=== PATIENT | female | born 1945 | race Caucasian/White ===

== ENCOUNTER 2016-10-15 10:14 | Inpatient (IN) | payer MEDICARE ==
[~2016-10-15] VITALS: Ht 149.9 cm; Wt 73.0 kg
[~2016-10-15 10:14] MED LIST: ACCUPRIL10 MG PO; AMLODIPINE10 MG PO; ARTHRICREAM 10% EX; CALCI PO; CARAFATE1 GM PO; CEFEPIME IV; CLARITIN-D1 TA2 PO; DUONEB IN; FLUZONE SPLT1 M1 IM; GABAPENTIN300 MG PO; GARAMYCIN0.31 OP; GRALISE300 MG PO; HYDROCHLORO25 MG/TAB; HYDROCHLORO25 MG/TAB PO; HYDROCHLOROT12.5 MG PO; HYDROCO/APAP1 TA1 PO; LEXAPRO10 MG PO; LEXAPRO20 MG PO; LIPITOR10 MG PO; LISINOPRIL10 MG PO; LISINOPRIL20 M1 OR; LISINOPRIL20 MG PO; LOPRESSOR25 MG PO; LORTAB 1010 MG PO; LORTAB 7.5 PO; Levaquin PO; METOPROL TAR25 MG PO; NO HOME MEDS; NORCO1 TA1 PO; NORVASC10 M1 PO; OXY1; OXYBUTYNIN10 MG PO; OXYBUTYNIN5 M1 PO; OXYCO/APAP1 TA5 PO; PERCOCET 10/31 COMBO PO; PERCOCET 5/325M1 TAB PO; POT CHLORIDE10 ME1 PO; POT CHLORIDE10 ME5 PO; PREDNISONE20 MG PO; PREVACID15 M3 PO; PRILOSEC20 MG/CAP PO; PRILOSEC40 MG PO; PROTONIX40 M2 PO; SLOW MAGNESIUM PO; TRAZODONE50 MG PO; TYLOPHEN500 MG PO; VENTOLIN HFA IN; XARELTO10 MG OR; [UNRECOGNIZED DRUG - SUPPLY] MASK
[2016-10-15] MEDS ORDERED: ASPIRIN CHEWABL81 MG PO (11:05)
[2016-10-15 11:10] LABS: HEMATOCRIT 44.4 % (37.0-47.0); HEMOGLOBIN 14.6 g/dl (12.0-16.0); IMMATURE GRANULOCYTES 1.2 % (0.0-1.0); MEAN CELL VOLUME 92.5 fL CALC (80.0-100.0); MEAN CORPUSCULAR HGB 30.4 pG CALC (26.0-32.0); MEAN CORPUSCULAR HGB CONC 32.9 g/L CALC (32.0-36.0); NEUT# 3.97 thou/uL (2.00-7.15); RED BLOOD COUNT 4.8 mill/uL (4.20-5.60); RED CELL DISTRI WIDTH 13.2 % (11.5-15.5)
[2016-10-15] MEDS ORDERED: LORTAB 10-325 M1 TAB PO (11:10)
[2016-10-15 11:32] LABS: ALBUMIN 4.4 g/dL (3.2-5.0); ALKALINE PHOSPHATASE 79 u/l (38-126); ANION GAP 15 (6-22 (CALC)); BILIRUBIN, TOTAL 0.5 mg/dL (0.0-1.4); BUN 15 mg/dL (8-23); BUN/CREATININE RATIO 18 (12-20 (CALC)); CALCIUM 8.9 mg/dL (8.4-10.2); CARBON DIOXIDE 28 mmol/l (22-30); CHLORIDE 100 mmol/l (95-108); CREATININE 0.8 mg/dL (0.5-1.0); GFR > 60 ML/MIN (>=60 (CALC)); GFR FOR AFR.AMER. > 60 ML/MIN (>=60 (CALC)); GLUCOSE 92 mg/dL (82-115); SGOT/AST 17 u/l (9-36); SGPT/ALT 13 u/l (11-66); SODIUM 140 mmol/l (137-146); TOTAL PROTEIN 7.8 g/dL (6.3-8.2)
[2016-10-15 11:52] LABS: MYOGLOBIN 64 ng/mL (0 - 62)
[2016-10-15 12:45] LABS: URINE BILIRUBIN - DIPSTICK NEGATIVE (NEGATIVE); URINE BLOOD DIPSTICK TRACE-INTACT (NEGATIVE); URINE CLARITY CLEAR; URINE COLOR YELLOW; URINE GLUCOSE - DIPSTICK NEGATIVE (NEGATIVE); URINE KETONE NEGATIVE (NEGATIVE); URINE LEUK ESTERASE NEGATIVE (NEGATIVE); URINE NITRITE - DIPSTICK NEGATIVE (Negative); URINE PH 7.5 (4.5-8.0); URINE PROTEIN - DIPSTICK TRACE mg/dL (NEG-TRACE); URINE UROBILINOGEN - DIPSTICK 0.2 E.U./dL (0.2)
[2016-10-15 14:15] VITALS: BP 144/71
[2016-10-15 16:00] VITALS: BP 134/72
[2016-10-15 19:22] VITALS: BP 133/75
[2016-10-15 23:16] VITALS: BP 130/70
[2016-10-16 05:10] VITALS: BP 128/75
[2016-10-16 06:23] LABS: HEMATOCRIT 39.7 % (37.0-47.0); HEMOGLOBIN 13.4 g/dl (12.0-16.0); IMMATURE GRANULOCYTES 0.6 % (0.0-1.0); MEAN CORPUSCULAR HGB 30.4 pG CALC (26.0-32.0); MEAN CORPUSCULAR HGB CONC 33.8 g/L CALC (32.0-36.0); NEUT# 13.34 thou/uL (2.00-7.15); RED BLOOD COUNT 4.41 mill/uL (4.20-5.60); RED CELL DISTRI WIDTH 13.1 % (11.5-15.5)
[2016-10-16 06:37] LABS: ALKALINE PHOSPHATASE 77 u/l (38-126); ANION GAP 15 (6-22 (CALC)); BILIRUBIN, TOTAL 0.3 mg/dL (0.0-1.4); BUN 21 mg/dL (8-23); BUN/CREATININE RATIO 27 (12-20 (CALC)); CALCIUM 9.3 mg/dL (8.4-10.2); CARBON DIOXIDE 27 mmol/l (22-30); CHLORIDE 101 mmol/l (95-108); CREATININE 0.8 mg/dL (0.5-1.0); GFR > 60 ML/MIN (>=60 (CALC)); GFR FOR AFR.AMER. > 60 ML/MIN (>=60 (CALC)); GLUCOSE 113 mg/dL (82-115); POTASSIUM 4.4 mmol/l (3.5-5.1); SGOT/AST 11 u/l (9-36); SGPT/ALT 21 u/l (11-66); SODIUM 138 mmol/l (137-146); TOTAL PROTEIN 6.9 g/dL (6.3-8.2)
[2016-10-16 09:58] VITALS: BP 132/72
[2016-10-16 15:02] VITALS: BP 122/61; BP 122/69
[2016-10-16 20:00] VITALS: BP 128/62
[2016-10-17] VITALS (7 sets, daily range): BP systolic 123–147; BP diastolic 67–80
[2016-10-18 04:30] VITALS: BP 157/83
[2016-10-18 05:13] LABS: HEMATOCRIT 38.9 % (37.0-47.0); IMMATURE GRANULOCYTES 1.3 % (0.0-1.0); MEAN CELL VOLUME 90.9 fL CALC (80.0-100.0); MEAN CORPUSCULAR HGB 30.4 pG CALC (26.0-32.0); MEAN CORPUSCULAR HGB CONC 33.4 g/L CALC (32.0-36.0); NEUT# 11.86 thou/uL (2.00-7.15); RED BLOOD COUNT 4.28 mill/uL (4.20-5.60); RED CELL DISTRI WIDTH 13.3 % (11.5-15.5)
[2016-10-18 05:18] LABS: ANION GAP 13 (6-22 (CALC)); BUN 21 mg/dL (8-23); BUN/CREATININE RATIO 29 (12-20 (CALC)); CARBON DIOXIDE 27 mmol/l (22-30); CHLORIDE 102 mmol/l (95-108); CREATININE 0.7 mg/dL (0.5-1.0); GFR > 60 ML/MIN (>=60 (CALC)); GFR FOR AFR.AMER. > 60 ML/MIN (>=60 (CALC)); GLUCOSE 103 mg/dL (82-115); POTASSIUM 4.5 mmol/l (3.5-5.1); SODIUM 138 mmol/l (137-146)
[2016-10-18 08:59] VITALS: BP 139/80
[2016-10-18 13:30] VITALS: BP 136/84
[2016-10-18 16:30] VITALS: BP 139/70
[2016-10-18 19:20] VITALS: BP 137/67
[2016-10-18 23:45] VITALS: BP 130/68
[2016-10-19 04:20] VITALS: BP 144/81
[2016-10-19 05:48] LABS: HEMOGLOBIN 13.7 g/dl (12.0-16.0); IMMATURE GRANULOCYTES 1.3 % (0.0-1.0); MEAN CELL VOLUME 90.5 fL CALC (80.0-100.0); MEAN CORPUSCULAR HGB 30.2 pG CALC (26.0-32.0); MEAN CORPUSCULAR HGB CONC 33.4 g/L CALC (32.0-36.0); NEUT# 7.79 thou/uL (2.00-7.15); RED BLOOD COUNT 4.53 mill/uL (4.20-5.60); RED CELL DISTRI WIDTH 13.2 % (11.5-15.5)
[2016-10-19 05:58] LABS: ANION GAP 13 (6-22 (CALC)); BUN 24 mg/dL (8-23); BUN/CREATININE RATIO 34 (12-20 (CALC)); CALCIUM 9.1 mg/dL (8.4-10.2); CARBON DIOXIDE 28 mmol/l (22-30); CHLORIDE 101 mmol/l (95-108); CREATININE 0.7 mg/dL (0.5-1.0); GFR > 60 ML/MIN (>=60 (CALC)); GFR FOR AFR.AMER. > 60 ML/MIN (>=60 (CALC)); GLUCOSE 98 mg/dL (82-115); POTASSIUM 4.8 mmol/l (3.5-5.1); SODIUM 137 mmol/l (137-146)
[2016-10-19 07:45] VITALS: BP 137/65
[2016-10-19] MEDS ORDERED: Levaquin PO (09:26)
[2016-10-19 10:00] VITALS: BP 137/65
== END 2016-10-19 11:54 | disposition home or self-care (01) | DRG 191 ==
LOC: ENPENDDIS → ED 10:14 → ED-I 11:22 → ED 13:07 → MS2 13:08
PROVIDERS: Emergency Medicine; ADMIT Internal Medicine Geriatric Medicine; ATTEND Internal Medicine Geriatric Medicine
DX: J44.1 Chronic obstructive pulmonary disease with (acute) exacerbation (principal); I25.110 Atherosclerotic heart disease of native coronary artery with unstable angina pectoris; I69.90 Unspecified sequelae of unspecified cerebrovascular disease; I10 Essential (primary) hypertension; I49.9 Cardiac arrhythmia, unspecified; E78.5 Hyperlipidemia, unspecified; F17.210 Nicotine dependence, cigarettes, uncomplicated; K21.9 Gastro-esophageal reflux disease without esophagitis; Z87.11 Personal history of peptic ulcer disease; Z95.5 Presence of coronary angioplasty implant and graft
CPT/HCPCS: Q9967

== ENCOUNTER 2017-02-21 23:47 | Inpatient (IN) | payer MEDICARE, MEDICAID ==
[~2017-02-21] VITALS: Ht 149.9 cm; Wt 73.0 kg
[~2017-02-21 23:47] MED LIST changes: +ASPIRIN CHEWABL81 MG PO; +LORTAB 10-325 M1 TAB PO
--- NOTE | 2017-02-21 23:50 | NUR ---
PT IMMEDIATELY TO RM 12 VIA WHEELCHAIR.
[2017-02-22] VITALS (15 sets, daily range): BP systolic 99–153; BP diastolic 47–83
[2017-02-22 00:36] LABS: HEMATOCRIT 43.1 % (37.0-47.0); HEMOGLOBIN 14.1 g/dl (12.0-16.0); IMMATURE GRANULOCYTES 0.4 % (0.0-1.0); MEAN CELL VOLUME 92.7 fL CALC (80.0-100.0); MEAN CORPUSCULAR HGB 30.3 pG CALC (26.0-32.0); MEAN CORPUSCULAR HGB CONC 32.7 g/L CALC (32.0-36.0); NEUT# 5.21 thou/uL (2.00-7.15); RED BLOOD COUNT 4.65 mill/uL (4.20-5.60)
--- NOTE | 2017-02-22 00:40 | NUR ---
PT RESTING IN BED W/ BIPAP IN PLACE. A&O X 3. SKIN W/D/P. VSS. DENIES PAIN. MEDICATED PER MD ORDER. INFORMED PT OF PLAN OF CARE AND WAIT TIME AND SHE VERBALIZED UNDERSTANDING. CALL LIGHT IN REACH.
[2017-02-22 00:43] LABS: URINE BILIRUBIN - DIPSTICK NEGATIVE (NEGATIVE); URINE BLOOD DIPSTICK MODERATE (NEGATIVE); URINE CLARITY CLEAR; URINE COLOR YELLOW; URINE GLUCOSE - DIPSTICK NEGATIVE (NEGATIVE); URINE KETONE NEGATIVE (NEGATIVE); URINE LEUK ESTERASE NEGATIVE (NEGATIVE); URINE NITRITE - DIPSTICK NEGATIVE (Negative); URINE PROTEIN - DIPSTICK TRACE mg/dL (NEG-TRACE); URINE SPECIFIC GRAVITY 1.025
[2017-02-22 00:52] LABS: ALBUMIN 4.5 g/dL (3.2-5.0); ALKALINE PHOSPHATASE 72 u/l (38-126); ANION GAP 15 (6-22 (CALC)); BILIRUBIN, TOTAL 0.5 mg/dL (0.0-1.4); BUN 15 mg/dL (8-23); BUN/CREATININE RATIO 18 (12-20 (CALC)); CALCIUM 8.8 mg/dL (8.4-10.2); CARBON DIOXIDE 30 mmol/l (22-30); CHLORIDE 100 mmol/l (95-108); CREATININE 0.8 mg/dL (0.5-1.0); GFR > 60 ML/MIN (>=60 (CALC)); GFR FOR AFR.AMER. > 60 ML/MIN (>=60 (CALC)); GLUCOSE 126 mg/dL (82-115); POTASSIUM 3.7 mmol/l (3.5-5.1); SGOT/AST 22 u/l (9-36); SGPT/ALT 23 u/l (11-66); SODIUM 141 mmol/l (137-146); TOTAL PROTEIN 7.6 g/dL (6.3-8.2)
[2017-02-22 00:54] LABS: URINE SQUAMOUS EPITHELIAL CELL FEW EPI/hpf (0-FEW); URINE WBC 0-2 WBC/hpf (0-5)
[2017-02-22 00:55] LABS: URINE BACTERIA RARE hpf; URINE MUCUS MODERATE hpf (NONE-FEW)
[2017-02-22 01:05] LABS: MYOGLOBIN 43 ng/mL (0 - 62)
[2017-02-22 01:12] LABS: ACT PARTIAL THROMBO TIME 26.2 SECONDS (20.0-32.5); INTERNATIONAL NORMALIZED RATIO 0.9 RATIO (0.7-1.3); PROTHROMBIN TIME 9.8 SECONDS (9.0-12.5)
--- NOTE | 2017-02-22 01:17 | NUR ---
PT REMOVED FROM BIPAP PER MD. PLACED ON 2L NC. RESTING IN BED WATCHING TV. RESP EVEN AND UNLABORED. NO DISTRESS NOTED. VSS. CALL LIGHT IN REACH.
[2017-02-22 02:05] LABS: INFLUENZA A NONE DETECTED (NONE DETECT); INFLUENZA B NONE DETECTED (NONE DETECT)
--- NOTE | 2017-02-22 02:11 | NUR ---
Reassessment of patient completed. No distress noted.
--- NOTE | 2017-02-22 02:30 | NUR ---
REPORT CALLED TO Francie SERRANO RN ICU
--- NOTE | 2017-02-22 02:40 | NUR ---
Admission Note Report Given to: Francie SERRANO RN Transported by: Wheelchair X Stretcher Transported with: X Nurse Transporter X Patent IV X O2 X Hogshead Press Operator
--- NOTE | 2017-02-22 02:40 | NUR ---
FROM ER TO ICU BED 2, SCORTED BY MIGUEL ÁNGEL LOGAN RN. VIA STRETCHER, BIAS BINDING FOLDER, 2L OF O2 VIA NC, AND 20G LAC SALINE LOCK, IV SITE FLUSHES WELL AND APPEARS HEALTHY FREE OF REDNESS OR EDEMA. PT ABLE TO AMBULATE FROM STRETCHER TO STANDING SCALE FOR WEIGH CHECK (74.9 KG) WITH ASSISTANCE X2 PEOPLE, UNSTEADY GAIT NOTED. C/O RIGHT LEG CRAMPING AT ARRIVAL, PAIN AT LLE, RATES IT AT 3/10, WHEEZES AND CRACKLES AUSCULTATED ON UPPER LUNG FARR, DIMINISHED BIBASILAR, SKIN IS WARM, DRY, ACYANOTIC, SOME MILD BRUISES NOTED TO BUE, PT IS SB ON MONITOR WITH HR 50, PVC'S, RESP IS MIDLY LABORED, INSTRUCTED ON PURSED LIP BREATHING EXERCISES, BP 153/73, SPO2 93% ON 2LPM VIA NC. TRACE EDEMA NOTED TO BLE, SOLE HOSE IN PLACE WITH NONSKID SOCKS, CALIXTO DRAINING BY GRAVITY, CLEAR PALE YELLOW URINE, EMPTIED 900 ML AT THIS TIME, LEG STRAP IN PLACE SECURING CALIXTO CATH, ABD DISTENDED, SOFT, ACTIVE BS X4QUAD, PT STATES "I MOVE MY BOWELS YESTERDAY." "I USE A CANE OR W/C AT HOME AND 2L OF OXYGEN VIA NASAL CANNULA AT NIGHT." "I LIVE WITH MY DAUGHTER AND BROTHER IN [place]." "I HAD A STROKE ABOUT 5 YEARS AGO AND SINCE THEN I HAVE LEFT SIDE WEAKNESS." EXPLAINED PLAN OF CARE, MED SCHEDULE, AND SAFETY MEASURES, PT VOICES UNDERSTANDING, SPEECH IS MIDLY UNCLEAR AT TIMES AND HESITATES ANSWERING ASSESSMENT QUESTIONS. CALL BUENROSTRO AT REACH, WILL CONTINUE TO MONITOR.
--- NOTE | 2017-02-22 02:45 | NUR ---
PT DENIES BEING DIABETIC.
--- NOTE | 2017-02-22 03:00 | NUR ---
PT IS ALERT AND ORIENTED X3. RESTING IN BED WITH EYES CLOSED. AROUSES TO VERBAL STIMULI. VOICES NO COMPLAINTS AT THIS TIME. RESP ARE EVEN AND UNLABORED. NO DISTRESS NOTED. VSS, AFEBRILE. SB ON MONITOR, OCCA PVC'S, HR 50-52. CALL BUENROSTRO AT REACH. WILL CONTINUE TO MONITOR.
--- NOTE | 2017-02-22 04:33 | NUR ---
CHILD CARE COUNSELOR IN PT ROOM DRAWING BLOOD SAMPLES. PT A/O X3, OFFERS NO COMPLAINTS, RESP ARE SHALLOW, UNLABORED, NO DISTRESS NOTE, SPO2 92% ON 2LPM NC, SB ON MONITOR HR 49-52, DENIES SOB, OR CHEST PAIN, NO N/V NOTED, WILL CONTINUE TO MONITOR. CALL BUENROSTRO AT REACH.
--- NOTE | 2017-02-22 06:33 | NUR ---
PT APPEARS TO BE SLEEPING WITH EYES CLOSED, A/O X3, DENIES PAIN, SOB, OR NEEDS AT THIS TIME, RESP ARE SHALLOW AND UNLABORED, MOUTH BREATHER, EMPTIED 200 ML OF PALE YELLOW URINE FROM CALIXTO CATH, IV SITE IS INTACT, SB ON MONITOR, HR 52 AT THIS TIME WITH OCCA PVC'S, AFEBRILE, BP 118/53, SPO2 92% ON 2LPM NC. ENCOURAGED TO CALL IF NEEDED. WILL CONTINUE TO MONITOR.
[2017-02-22 06:45] LABS: HEMOGLOBIN 14.6 g/dl (12.0-16.0); IMMATURE GRANULOCYTES 0.5 % (0.0-1.0); MEAN CELL VOLUME 92.3 fL CALC (80.0-100.0); MEAN CORPUSCULAR HGB 31.3 pG CALC (26.0-32.0); NEUT# 7.8 thou/uL (2.00-7.15); RED BLOOD COUNT 4.66 mill/uL (4.20-5.60); RED CELL DISTRI WIDTH 12.8 % (11.5-15.5)
[2017-02-22 07:00] LABS: ALBUMIN 4.2 g/dL (3.2-5.0); ALKALINE PHOSPHATASE 74 u/l (38-126); ANION GAP 12 (6-22 (CALC)); BILIRUBIN, TOTAL 0.4 mg/dL (0.0-1.4); BUN 15 mg/dL (8-23); BUN/CREATININE RATIO 19 (12-20 (CALC)); CALCIUM 8.8 mg/dL (8.4-10.2); CARBON DIOXIDE 30 mmol/l (22-30); CHLORIDE 99 mmol/l (95-108); CREATININE 0.8 mg/dL (0.5-1.0); GFR > 60 ML/MIN (>=60 (CALC)); GFR FOR AFR.AMER. > 60 ML/MIN (>=60 (CALC)); GLUCOSE 132 mg/dL (82-115); POTASSIUM 3.6 mmol/l (3.5-5.1); SGOT/AST 11 u/l (9-36); SGPT/ALT 23 u/l (11-66); SODIUM 138 mmol/l (137-146)
--- NOTE | 2017-02-22 07:30 | NUR ---
PT ALERT AND ORIENTED RESTING IN BED, SKIN INTACT WITH SMALL SCATTERED ECCHYMOTIC AREAS AND FEW SMALL SCATTERED SCABS TO ALL EXTREMETIES, AM ASSESSMENT COMPLETED SEE INTERVENTIONS, CALIXTO CATHETER IN TACT DRAINING CLEAR YELLOW URINE WITH CATH STRAP IN PLACE, SOME LEFT SIDED WEAKNESS NOTED FROM OLD CVA, 20G SALINE LOCK INTACT IN LEFT AC, TELE READING SB RATE 50-56, BP CONTROLLED AND PT AFEBRILE, SEE INTERVENTIONS FOR DETAILS, SAFETY MEASURES REINFROCED, CALL BUENROSTRO WITHIN REACH, O2 ON AT 2L VIA NC, NO SOB OR DISTRESS NOTED, WILL CONTINUE TO MONITOR.
--- NOTE | 2017-02-22 07:40 | NUR ---
SET UP ASSIST PROVIDED FOR AM MEAL
--- NOTE | 2017-02-22 08:05 | NUR ---
IN TO SEE PATIENT, PLAN OF CARE DISCUSSED, CALL BUENROSTRO WITHIN REACH, PLAN TO HOLD AM LOPRESSSOR RELATED TO CONTROLLED BP (HAS OTHER ANTIHYPERTENSIVES ORDERED ALSO) AND SB RATE 50-56 THIS AM CONSISITENTLY, WILL MONITOR CLOSELY FOR CHANGES
--- NOTE | 2017-02-22 08:15 | NUR ---
PT REQUESTING ASSISTANCE TO STAND AT BEDSIDE TO RELEIVE "LEG CRAMPS" ASSISTANCE PROVIDED, PT TOLERATED WELL WITH SOME BALANCE ISSUES NOTED RELATED TO LEFT SIDED WEAKNESS, PT STATES SHE USES A CANE AND/OR WALKER AT HOME
--- NOTE | 2017-02-22 08:55 | NUR ---
PT REPOSITIONED FRO COMFORT, TOOK AM PO MEDICATIONS WELL, MEDICATED FRO COMPLAINTS OF FOOT AND LEG PAIN ORDERED, CALL BUENROSTRO WITHIN REACH.
--- NOTE | 2017-02-22 09:47 | NUR ---
PT STOOD AND TRASNFERRED TO WC WITH MIN ASSIST, SOME AUDIBLE WHEEZES NOTED BUT DENIES SHORTNESS OF BREATH OR DISTRESS, TO RADIOLOGY VIA WC.
--- NOTE | 2017-02-22 11:15 | NUR ---
pt back from radiology, assisted to sitting in recliner, am bath provided with assist of patient, linens changed earlier, call salazar within reach
--- NOTE | 2017-02-22 11:39 | NUR ---
set up assist provided for afternoon meal, call martin whitt
--- NOTE | 2017-02-22 12:45 | NUR ---
pt assisted back to bed per her request, comfort measures provided, call salazar within reach, will continue to monitor.
--- NOTE | 2017-02-22 13:39 | NUR ---
pt dozing offers no compalints, no s/s of distress or discomfort noted, call salazar within reach, gerard cath remains intact draining clear yellow urine with cath strap in place, will continue to monitor.
--- NOTE | 2017-02-22 14:53 | NUR ---
PT DOZING, OFFERS NO NEW COMPLAINTS, VS REMAIN STABLE, WILL CONTINUE TO MONITOR.
--- NOTE | 2017-02-22 16:04 | NUR ---
PT ERIK, OFFERS NO NEW COMPLAINTS, CALL BUENROSTRO WITHIN REACH, WILL CONTINUE TO MONITOR
--- NOTE | 2017-02-22 17:25 | NUR ---
in to see patient, plna of care discussed including possible trasnfer to medical floor tomorrow, diet changed per pt request, will continue to monitor.
--- NOTE | 2017-02-22 19:08 | NUR ---
pt awake in bed; no distress noted; assessment completed at this time; pt alert and oriented; complaints of pain in butt and legs; lortab reviewed and given; denies n/v; resp slightly labored; lungs coarse with wheezing/ diminished bases; skin color wnl; o2 per nc at 2L; moist value analysis coordinator cough noted; hr reg; pulses present; trace edema noted to ble; sr/st on monitor; abd soft wiht bs present; no bm noted per press writer; gerard to gravity draining clear yellow urine; cath strap intact; #20 flushed and patent to lac; blood return noted; scattered ecchymotic areas and scabs noted to extremities; repositioning self encouraged; plan of care/pm meds explained; call light within reach; will continue to monitor
--- NOTE | 2017-02-22 19:59 | NUR ---
awake; admits to pain relief; iv intact; sr/pvc on monitor; gerard to gravity; denies needs; call light within reach; will continue to monitor
--- NOTE | 2017-02-22 21:59 | NUR ---
awake; offers no complaints; sr on monitor; gerard to gravity; o2 per nc; deny needs; call light within reach; will continue to monitor
[2017-02-23] VITALS (12 sets, daily range): BP systolic 99–155; BP diastolic 51–78
--- NOTE | 2017-02-23 00:12 | NUR ---
awake; watching tv; no distress noted; resp even and unlabored; iv intact; sr on monitor; gerard to gravity; deny needs; call light within reach; will continue to monitor
--- NOTE | 2017-02-23 02:07 | NUR ---
asleep; easily aroused; offers no complaints; sr/pvc on monitor; gerard to gravity; iv intact; call light within reach
--- NOTE | 2017-02-23 03:00 | NUR ---
viktoriya hosmani removed for comfort per pt request
--- NOTE | 2017-02-23 03:56 | NUR ---
resting in bed with eyes closed; resp even and unlabored; iv intact; sr/pvc on monitor; gerard to gravity; o2 per nc; call light within reach
--- NOTE | 2017-02-23 04:50 | NUR ---
awake; receiving neb tx; no distress noted; will continue to monitor
[2017-02-23 06:02] LABS: ALBUMIN 3.8 g/dL (3.2-5.0); ALKALINE PHOSPHATASE 60 u/l (38-126); ANION GAP 13 (6-22 (CALC)); BILIRUBIN, TOTAL 0.2 mg/dL (0.0-1.4); BUN 22 mg/dL (8-23); BUN/CREATININE RATIO 26 (12-20 (CALC)); CALCIUM 9.2 mg/dL (8.4-10.2); CARBON DIOXIDE 28 mmol/l (22-30); CHLORIDE 100 mmol/l (95-108); CREATININE 0.8 mg/dL (0.5-1.0); GFR > 60 ML/MIN (>=60 (CALC)); GFR FOR AFR.AMER. > 60 ML/MIN (>=60 (CALC)); GLUCOSE 140 mg/dL (82-115); POTASSIUM 3.6 mmol/l (3.5-5.1); SGOT/AST 11 u/l (9-36); SGPT/ALT 19 u/l (11-66); SODIUM 138 mmol/l (137-146); TOTAL PROTEIN 6.4 g/dL (6.3-8.2)
--- NOTE | 2017-02-23 06:13 | NUR ---
awake; offers no complaints; no distress noted; resp even and unlabored; iv flushed and patent; no redness or edema noted at site; sr/pvc on monitor; gerard emptied for 350cc; o2 per nc; bed in lowest position; call light within reach
[2017-02-23 06:23] LABS: HEMATOCRIT 39.5 % (37.0-47.0); HEMOGLOBIN 13.2 g/dl (12.0-16.0); MEAN CELL VOLUME 92.1 fL CALC (80.0-100.0); MEAN CORPUSCULAR HGB 30.8 pG CALC (26.0-32.0); MEAN CORPUSCULAR HGB CONC 33.4 g/L CALC (32.0-36.0); NEUT# 18.73 thou/uL (2.00-7.15); RED BLOOD COUNT 4.29 mill/uL (4.20-5.60)
--- NOTE | 2017-02-23 08:50 | NUR ---
PT IS RELAXING IN BED WITH NO DISTRESS NOTED. IV SITE IS FREE FROM REDNESS OR EDEMA. ASSESSMENT IS COMPLETED: BREATH SOUNDS ARE WHEEZING AND COARSE. HR IS REG,PULSES ARE STRONG X4, ABD IS SOFT WITH ACTIVE BS. O2 @ 2LITERS SAT 90%. CONTINUE TO OBSERVE AND MONITOR.
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
--- NOTE | 2017-02-23 12:00 | NUR ---
PT'S FAMILY IN THE ROOM WITH PT NO DISTRESS NOTED. INFORMED THAT WILL LET PT KNOW WHEN AND WHAT ROOM PT WILL BE IN.
--- NOTE | 2017-02-23 14:00 | NUR ---
PT IS RELAXING IN BED WITH NO DISTRESS NOTED. IV SITE IS FREE FROM REDNESS OR EDEMA.
--- NOTE | 2017-02-23 16:00 | NUR ---
PT IS RELAXING IN BED WITH NO DISTRESS NOTED. IV SITE IS FREE FROM REDNESS OR EDEMA CONTINUE TO OBSERVE AND MONITOR.
--- NOTE | 2017-02-23 18:50 | NUR ---
REPORT RECEIVED FOR HELENA MEIER, INTRODUCED SELF TO PT, DENIES NEEDS AT THIS TIME, A&OX3, NO DISTRESS NOTED, VSS, ON 4LPM OF HUMIDIFIED OXYGEN, WILL FOLLOW UP WITH ASSESSMENT AND PLAN OF CARE. CALL BUENROSTRO AT [facility], WILL CONTINUE TO MONITOR.
--- NOTE | 2017-02-23 19:36 | NUR ---
C/O ACHING PAIN IN LEFT FOOT, MEDICATED WITH LORTAB PER MD ORDERS, PT RATES PAIN AT 8/10.
--- NOTE | 2017-02-23 19:53 | NUR ---
FOUND PT LYING IN BED RESTING WITH EYES CLOSED, AROUSES TO VERBAL STIMULI, ALERT AND ORIENTED X3, STATES "PAIN IN LEFT FOOT IS BETTER." LUNGS ARE COARSE WITH EXPIRATORY WHEEZES ON AUSCULTATION, NURSING UNIT MANAGER COUGH NOTED, AFEBRILE, SR ON MONITOR, HR 69, BP 140/53, 90% ON 4LPM OF HUMIDIFIED OXYGEN VIA NC, NO EDEMA NOTED, SKIN IS WARM, DRY, AND ACYANOTIC, RESP ARE EVEN AND UNLABORED, BRUISES NOTED ON BUE, 20G LAC SALINE LOCKED, FLUSHES WELL, IV SITE IS INTACT, CALIXTO DRAINING BY GRAVITY SMALL AMOUNTS OF CLEAR YELLOW URINE, EMPTIED 100 ML AT THIS TIME, LEG STRAP IN PLACE, PT REFUSES TO WEAR SOLE HOSE AND SOCKS, EXPLAINED PLAN OF CARE AND MED SCHEDULE, VOICES UNDERSTANDING, SAFETY MEASURES ARE IN PLACE, CALL BUENROSTRO AT REACH, WILL CONTINUE TO MONITOR.
--- NOTE | 2017-02-23 22:10 | NUR ---
PT OFFERS NO COMPLAINTS AT THIS TIME, RESP EVEN AND UNLABORED, NO DISTRESS NOTED, VSS, SR ON MONITOR, WILL CONTINUE TO MONITOR. CALL BUENROSTRO AT REACH.
[2017-02-24] VITALS (9 sets, daily range): BP systolic 128–160; BP diastolic 59–77
--- NOTE | 2017-02-24 00:10 | NUR ---
PT APPEARS TO BE SLEEPING WITH EYES CLOSED, RESPONDS TO VERBAL STIMULI, ALERT AND ORIENTED X3, AFEBRILE, VSS, SR ON MONITOR, SPO2 93%, RESP ARE EVEN AND UNLABORED, STATES "I HAVING A HARD TIME FALLING SLEEP." WILL NOTIFY MD. ABOUT PT REQUESTING A SLEEPING PILL, NO DISTRESS NOTED, IV SITE REMAINS INTACT, FREE OR REDNESS OR EDEMA, ENCOURAGED PT TO CALL IF NEEDED, OFFERED PO FLUIDS, WILL CONTINUE TO MONITOR.
--- NOTE | 2017-02-24 04:28 | NUR ---
PT APPEARS TO BE IN NO DISTRESS, RESTING QUIELY IN BED WITH EYES CLOSED, RESP ARE EVEN AND UNLABORED, VSS, SR ON MONITOR, HR 60, AFEBRILE, SAFETY MEASURES ARE IN PLACE, OFFERS NO COMPLAINTS, EMPTIED 1200 ML OF CLEAR YELLOW URINE AT THIS TIME, CALL BUENROSTRO AT REACH, WILL CONTINUE TO MONITOR.
[2017-02-24 06:03] LABS: HEMATOCRIT 40.9 % (37.0-47.0); HEMOGLOBIN 13.6 g/dl (12.0-16.0); IMMATURE GRANULOCYTES 1.6 % (0.0-1.0); MEAN CELL VOLUME 91.7 fL CALC (80.0-100.0); MEAN CORPUSCULAR HGB 30.5 pG CALC (26.0-32.0); MEAN CORPUSCULAR HGB CONC 33.3 g/L CALC (32.0-36.0); NEUT# 14.48 thou/uL (2.00-7.15); RED BLOOD COUNT 4.46 mill/uL (4.20-5.60); RED CELL DISTRI WIDTH 12.9 % (11.5-15.5)
[2017-02-24 06:15] LABS: ALBUMIN 3.8 g/dL (3.2-5.0); ALKALINE PHOSPHATASE 59 u/l (38-126); ANION GAP 14 (6-22 (CALC)); BILIRUBIN, TOTAL 0.3 mg/dL (0.0-1.4); BUN 20 mg/dL (8-23); BUN/CREATININE RATIO 29 (12-20 (CALC)); CALCIUM 9.3 mg/dL (8.4-10.2); CARBON DIOXIDE 28 mmol/l (22-30); CHLORIDE 101 mmol/l (95-108); CREATININE 0.7 mg/dL (0.5-1.0); GFR > 60 ML/MIN (>=60 (CALC)); GFR FOR AFR.AMER. > 60 ML/MIN (>=60 (CALC)); GLUCOSE 106 mg/dL (82-115); POTASSIUM 4.4 mmol/l (3.5-5.1); SGOT/AST 11 u/l (9-36); SGPT/ALT 23 u/l (11-66); SODIUM 138 mmol/l (137-146); TOTAL PROTEIN 6.5 g/dL (6.3-8.2)
--- NOTE | 2017-02-24 06:37 | NUR ---
PT RESTING IN BED WITH EYES CLOSED, VOICES NO COMPLAINTS, RESP ARE EVEN AND UNLABORED, NO DISTRESS NOTED, WILL CONTINUE TO MONITOR. CALL BUENROSTRO IS AT REACH.
--- NOTE | 2017-02-24 07:30 | NUR ---
PT ALERT AND ORIENTED RESTING IN BED, SKIN INTACT WITH SMALL SCATTERED ECCHYMOTIC AREAS AND FEW SMALL SCATTERED SCABS TO ALL EXTREMETIES, AM ASSESSMENT COMPLETED SEE INTERVENTIONS, CALIXTO CATHETER INTACT DRAINING CLEAR YELLOW URINE WITH CATH STRAP IN PLACE, SOME LEFT SIDED WEAKNESS NOTED FROM OLD CVA, 20G SALINE LOCK INTACT IN LEFT AC, TELE READING SR RATE 60'S, BP CONTROLLED AND PT AFEBRILE, SEE INTERVENTIONS FOR DETAILS, SAFETY MEASURES REINFROCED, CALL BUENROSTRO WITHIN REACH, O2 ON AT 4L VIA NC, NO SOB OR DISTRESS NOTED, PT STTAES SHE ALREADY HAS O2 AT HOME, AND EVANGELISTA IS FEELING A LITTLE BETTER TODAY, WILL CONTINUE TO MONITOR.
--- NOTE | 2017-02-24 08:00 | NUR ---
PT SAT UP ON EDGE OF BED FOR AM MEAL, APPETITE GOOD AND OTLERATES DIET WELL, CALL BUENROSTRO WITHIN REACH
--- NOTE | 2017-02-24 08:45 | NUR ---
PHYSICAL THERAPY WORKED WITH PATIENT, TOLERATED WELL, OFFERS NO COMPLAINTS, CALL BUENROSTRO WITHIN REACH
--- NOTE | 2017-02-24 09:36 | NUR ---
DAUGHTER AT BEDSIDE, CALL BUENROSTRO WITHIN REACH, RESTING IN BED
--- NOTE | 2017-02-24 10:01 | NUR ---
REPORT CALLED TO RICH ESTEVES ON MED SURG ROOM 272 ASSIGNED
--- NOTE | 2017-02-24 10:15 | NUR ---
CALIXTO REMOVED INTACT W/O INCIDENT, AT 1000 AM WITH SARAH CARE PROVIDED, PT REQUESTED HER PERSONAL INCONTINENCE BRIEF BE PLACED RELATED TO URGENCY ISSUES, DONE AND PT STOOD AND TRANSFERRED TO [facility] THEN TRANSFERRED TO MED SURG ROOM 272 VACCINATOR AT BEDSIDE TO RECIEVE PATIENT.
--- NOTE | 2017-02-24 10:50 | NUR ---
REPORT RECEIVED FROM SHAWNA IN ICU, PT ARRIVED ON UNIT VIA W/C, ALERT AND ORIENTED X 3, ORIENTED TO ROOM AND CALL BUENROTSRO, SETTLED IN BED, O2 @ 2L IN PLACE, DENIES PAIN/DISCOMFORT AT THIS ITME, CALL BUENROSTRO IN REACH.
--- NOTE | 2017-02-24 11:46 | NUR ---
SET UP FOR MEAL AT THIS TIME, CALL BUENROSTRO IN REACH.
--- NOTE | 2017-02-24 15:49 | NUR ---
RESTING IN BED AT THIS TIME, PAIN TO L. LEG RELIEVED WITH ANALGESIC, ALL NEEDS ADDRESSED, CALL BUENROSTRO IN REACH.
--- NOTE | 2017-02-24 18:07 | NUR ---
PT ARRIVED FROM ICU WITH PULL-UP, ADVISED OF "NO BRIEFS" POLICY TO PROTECT PT'S SKIN INTEGRETY, SHE IS ADAMANT ABOUT WEARING IT AND STATES SHE WANTS TO WEAR IT. ADVISED TO CALL FOR ASSIST TO CHANGE WET BRIEFS TO PREVENT SKIN BREAKDOWN, STATES UNDERSTANDING.
--- NOTE | 2017-02-25 00:01 | NUR ---
PT APPEARS TO BE SLEEPING WITH EYES CLOSED, RESP ARE EVEN AND UNLABORED, ON 4LPM SPO2 VIA NC, HUMIDIFIED, VOICES NO COMPLAINTS, AROUSES TO VERBAL STIMULI, BSC AND CALL BUENROSTRO IS AT REACH, WILL CONTINUE TO MONITOR.
--- NOTE | 2017-02-25 01:28 | NUR ---
FOUND PT RESTING IN BED, WATCHING TV, A/O X3, DENIES PAIN OR SOB, RESP ARE UNLABORED, ON 4LPM, OXYGEN, VIA NC, AFEBRILE, VSS, PM ASSESSMENT COMPLETED AT THIS TIME, SEE INTERVENTIONS, PT VOIDS PER BSC, WEARING A BRIEF FROM HOME, EDUCATED ABOUT SKIN INTERGRITY WHEN ON BRIEFS, PT VOICES UNDERSTANDING AND REFUSES NOT TO WEAR A BRIEF, STATES "I CALL YOU IF I AM WET." NO BM NOTED, LUNGS ARE WHEEZE WITH DIMINISHED BIBASILAR ON AUSCULTATIION, NOT ON TELEMETRY, ENCOURAGED PT CALL IF NEEDED, EXPLAINED PLAN OF CARE AND MED SCHEDULE, VERBALIZES UNDERSTANDING, CALL BUENROSTRO AT REACH WILL CONTINUE TO MONITOR.
[2017-02-25 04:04] VITALS: BP 150/82
--- NOTE | 2017-02-25 05:32 | NUR ---
OFFERS NO COMPLAINTS AT THIS TIME, APPEARS TO BE SLEEPING WITH EYES CLOSED, RESP ARE EVEN AND UNLABORED, AROUSES TO VERBAL STIMULI, ENCOURAGEDT TO CALL IF NEEDED, NO BM NOTED, OFFERED PO FLUIDS, WILL CONTINUE TO MONITOR.
[2017-02-25 06:25] LABS: HEMATOCRIT 42.2 % (37.0-47.0); HEMOGLOBIN 14.2 g/dl (12.0-16.0); IMMATURE GRANULOCYTES 1.2 % (0.0-1.0); MEAN CELL VOLUME 91.9 fL CALC (80.0-100.0); MEAN CORPUSCULAR HGB 30.9 pG CALC (26.0-32.0); MEAN CORPUSCULAR HGB CONC 33.6 g/L CALC (32.0-36.0); NEUT# 10.81 thou/uL (2.00-7.15); RED BLOOD COUNT 4.59 mill/uL (4.20-5.60); RED CELL DISTRI WIDTH 12.9 % (11.5-15.5)
[2017-02-25 06:36] LABS: ANION GAP 15 (6-22 (CALC)); BUN 24 mg/dL (8-23); BUN/CREATININE RATIO 35 (12-20 (CALC)); CALCIUM 9.1 mg/dL (8.4-10.2); CARBON DIOXIDE 26 mmol/l (22-30); CHLORIDE 102 mmol/l (95-108); CREATININE 0.7 mg/dL (0.5-1.0); GFR > 60 ML/MIN (>=60 (CALC)); GFR FOR AFR.AMER. > 60 ML/MIN (>=60 (CALC)); GLUCOSE 107 mg/dL (82-115); POTASSIUM 4.8 mmol/l (3.5-5.1); SODIUM 138 mmol/l (137-146)
[2017-02-25 07:46] VITALS: BP 143/70
--- NOTE | 2017-02-25 07:47 | NUR ---
REPORT RECEIVED FROM DANIELITO NOWAK. PT SLEEPING AT THIS TIME. CALL LIGHT WITHIN REACH.
--- NOTE | 2017-02-25 09:00 | NUR ---
PT PROVIDED WITH IS. INSTRUCTED ON USE AND INDICATION. 1000 ML INCENTIVE VOLUME ACHIEVED, GOAL OF 1500 ML SET.
--- NOTE | 2017-02-25 12:32 | NUR ---
PT UP TO SHOWER WITH STAFF MEMBER.
--- NOTE | 2017-02-25 13:27 | NUR ---
PT AMBULATING WITH PHYSICAL THERAPY AT THIS TIME. TOLERATING ACITIVTY.
--- NOTE | 2017-02-25 13:48 | NUR ---
PATIENT WAS SEEN AND TREATED TODAY. SHE WAS ABLE TO GET UP BY HERSELF FROM THE BED FASTER THAN BASELINE. CONTACT GUARD ASSIST WAS GIVEN DURING TRANSFERS WITH 02 MONITORING VIA PULSE OXIMETER. SHE WAS AT 89% DURING TRANSFER TO CHAIR AND WAS NOT COMPLAINING OF SOB. SHE AMBULATED 10 FEET X 2 WITH GAIT BELT, ROLLING WALKER AND CONTACT GUARD ASSIST. 02 CANNULA WAS AT 3L/MIN. PATIENT SAFELY RECLINED IN BED WITHOUT ADVERSE EVENTS.
[2017-02-25 15:47] VITALS: BP 124/67
[2017-02-25 18:54] VITALS: BP 119/62
--- NOTE | 2017-02-25 19:50 | NUR ---
PT. RESTING IN BED WITH NO DISTRESS NOTED. ASSESSMENT COMPLETED. IV SITE PATENT TO LAC AND SL. PT. HAS LEFT SIDED WEAKNESS R/T HX; CVA. O2 INFUSING PER NC @3LITERS/MIN PER NC. PT. DENIES NEEDS. ENCOURAGED TO CALL FOR ANY NEEDS. CALL LIGHT IS IN REACH. WILL CONTINUE TO MONITOR.
--- NOTE | 2017-02-25 21:47 | NUR ---
PT. RESTING IN BED ON LEFT SIDE WITH NO DISTRESS NOTED. PT. DECLINES WANTING SOLE HOSE TO BE PLACED. DENIES NEEDS. CALL LIGHT IS IN REACH.
--- NOTE | 2017-02-25 23:06 | NUR ---
PT. IS RESTING IN BED WITH EYES CLOSED. NO DISTRESS NOTED. RESP EVEN AND UNLABORED. CALL LIGHT IS IN REACH.
--- NOTE | 2017-02-26 03:00 | NUR ---
PT. RESTING IN BED WITH EYES CLOSED, NO DISTRESS NOTED. RESP EVEN AND UNLABORED. CALL LIGHT IS IN REACH. WILL CONTINUE TO MONITOR.
[2017-02-26 03:16] VITALS: BP 154/75
--- NOTE | 2017-02-26 05:45 | NUR ---
PT. RESTING IN BED WITH EYES OPEN RECEIVING A NEB TX. PT. DENIES NEEDS/PAIN. ENCOURAGED TO CALL FOR ANY NEEDS. CALL LIGHT IS IN REACH.
[2017-02-26 05:49] LABS: HEMATOCRIT 40.9 % (37.0-47.0); HEMOGLOBIN 13.6 g/dl (12.0-16.0); IMMATURE GRANULOCYTES 1.3 % (0.0-1.0); MEAN CELL VOLUME 91.9 fL CALC (80.0-100.0); MEAN CORPUSCULAR HGB 30.6 pG CALC (26.0-32.0); MEAN CORPUSCULAR HGB CONC 33.3 g/L CALC (32.0-36.0); NEUT# 9.9 thou/uL (2.00-7.15); RED BLOOD COUNT 4.45 mill/uL (4.20-5.60); RED CELL DISTRI WIDTH 12.9 % (11.5-15.5)
[2017-02-26 05:59] LABS: ALBUMIN 3.9 g/dL (3.2-5.0); ALKALINE PHOSPHATASE 57 u/l (38-126); ANION GAP 15 (6-22 (CALC)); BILIRUBIN, TOTAL 0.4 mg/dL (0.0-1.4); BUN 30 mg/dL (8-23); BUN/CREATININE RATIO 44 (12-20 (CALC)); CARBON DIOXIDE 25 mmol/l (22-30); CHLORIDE 103 mmol/l (95-108); CREATININE 0.7 mg/dL (0.5-1.0); GFR > 60 ML/MIN (>=60 (CALC)); GFR FOR AFR.AMER. > 60 ML/MIN (>=60 (CALC)); GLUCOSE 111 mg/dL (82-115); POTASSIUM 4.9 mmol/l (3.5-5.1); SGOT/AST 12 u/l (9-36); SGPT/ALT 27 u/l (11-66); SODIUM 138 mmol/l (137-146); TOTAL PROTEIN 6.5 g/dL (6.3-8.2)
[2017-02-26 07:45] VITALS: BP 137/69
--- NOTE | 2017-02-26 07:45 | NUR ---
ASSESSMENT IS COMPLTED: BREATH SOUNDS ARE COARSE AND DIMINISHED. IV SITE IS FREE FROM REDNESS OR EDEMA. TELE MONTIOR IN PLACE. CONTINUE TO OSBERVE AND MONITOR.
[2017-02-26] MEDS ORDERED: VENTOLIN H108 MCG/AC PO (08:57)
[2017-02-26] MEDS ORDERED: Levaquin PO (08:58)
[2017-02-26] MEDS ORDERED: PRILOSEC20 MG/CAP PO (09:02)
[2017-02-26 09:30] VITALS: BP 137/69
--- NOTE | 2017-02-26 10:30 | NUR ---
IV SITE DISCONTINUED CATHETER INTACT.,
--- NOTE | 2017-02-26 10:44 | NUR ---
PT RECEIVED DISCHARGE INSTRUCTIONS AND VERBALIZED UNDERSTANDING. IV SITE IS REMOVED AND CATHETER INTACT. NO DISTRESS NOTED. CONTINUE TO OSBERVE AND MONITOR.
--- NOTE | 2017-02-26 10:45 | NUR ---
Discharge instructions given. Patient verbalizes understanding of same. Discharged in stable condition via Wheelchair to Home with family. All belongings sent with pt.
== END 2017-02-26 10:42 | disposition home or self-care (01) | DRG 192 ==
LOC: ED 23:47 → ED-I 02-22 00:39 → ED 02-22 01:30 → ICU 02-22 01:31 → MS2 02-22 01:31
PROVIDERS: Emergency Medicine; ADMIT Internal Medicine Geriatric Medicine; ATTEND Internal Medicine Geriatric Medicine
PROC: 0T9B70Z Drainage of Bladder with Drainage Device, Via Natural or Artificial Opening (ICD-10-PCS; principal; 2017-02-22)
PROC: 5A09357 Assistance with Respiratory Ventilation, Less than 24 Consecutive Hours, Continuous Positive Airway Pressure (ICD-10-PCS; 2017-02-22)
DX: J44.1 Chronic obstructive pulmonary disease with (acute) exacerbation (principal); I69.30 Unspecified sequelae of cerebral infarction; K27.9 Peptic ulcer, site unspecified, unspecified as acute or chronic, without hemorrhage or perforation; I10 Essential (primary) hypertension; I25.10 Atherosclerotic heart disease of native coronary artery without angina pectoris; R09.02 Hypoxemia; E78.5 Hyperlipidemia, unspecified; K21.9 Gastro-esophageal reflux disease without esophagitis; F17.210 Nicotine dependence, cigarettes, uncomplicated; M19.90 Unspecified osteoarthritis, unspecified site; Z95.5 Presence of coronary angioplasty implant and graft
CPT/HCPCS: A9540; A9567; J1650

== ENCOUNTER 2017-04-06 21:58 | Inpatient (IN) | payer MEDICARE, MEDICAID ==
[~2017-04-06] VITALS: Ht 149.9 cm; Wt 75.3 kg
[~2017-04-06 21:58] MED LIST changes: +VENTOLIN H108 MCG/AC PO
--- NOTE | 2017-04-06 22:20 | NUR ---
PT. TO ROOM 13 VIA EMS WITH C/O WEAKNESS STARTING AT 1400 TODAY. SKIN WARM AND DRY TO TOUCH, COLOR WNL, RESP. EVEN AND UNLABORED. TALHA;ATERAL LUNG FILEDS ARE RHONCHI.
--- NOTE | 2017-04-06 23:03 | NUR ---
PT. BP 182/111 MD AWARE.
--- NOTE | 2017-04-07 00:03 | NUR ---
PT. INCONTINENT OF A MODERATE AMT. LIQUID BROWN STOOL, PER CARE GIVEN.
[2017-04-07 00:32] LABS: HEMATOCRIT 43.3 % (37.0-47.0); HEMOGLOBIN 14.2 g/dl (12.0-16.0); IMMATURE GRANULOCYTES 0.3 % (0.0-1.0); MEAN CELL VOLUME 92.9 fL CALC (80.0-100.0); MEAN CORPUSCULAR HGB 30.5 pG CALC (26.0-32.0); MEAN CORPUSCULAR HGB CONC 32.8 g/L CALC (32.0-36.0); NEUT# 9.09 thou/uL (2.00-7.15); RED BLOOD COUNT 4.66 mill/uL (4.20-5.60); RED CELL DISTRI WIDTH 13.5 % (11.5-15.5)
[2017-04-07 00:38] LABS: ALBUMIN 4.4 g/dL (3.2-5.0); ALKALINE PHOSPHATASE 86 u/l (38-126); ANION GAP 15 (6-22 (CALC)); BILIRUBIN, TOTAL 0.6 mg/dL (0.0-1.4); BUN 16 mg/dL (8-23); BUN/CREATININE RATIO 18 (12-20 (CALC)); CALCIUM 9.1 mg/dL (8.4-10.2); CARBON DIOXIDE 29 mmol/l (22-30); CHLORIDE 105 mmol/l (95-108); CREATININE 0.9 mg/dL (0.5-1.0); GFR > 60 ML/MIN (>=60 (CALC)); GFR FOR AFR.AMER. > 60 ML/MIN (>=60 (CALC)); GLUCOSE 120 mg/dL (82-115); POTASSIUM 3.9 mmol/l (3.5-5.1); SGOT/AST 33 u/l (9-36); SGPT/ALT 26 u/l (11-66); SODIUM 144 mmol/l (137-146); TOTAL PROTEIN 7.8 g/dL (6.3-8.2)
[2017-04-07 00:50] LABS: MYOGLOBIN 61 ng/mL (0 - 62)
--- NOTE | 2017-04-07 01:03 | NUR ---
RESTING ON STRETCHER, ASSESSMENT UNCHGED. NO C/O PAIN OR DISCOMFORT OFFERED.
--- NOTE | 2017-04-07 02:11 | NUR ---
MD IN ROOM TO DISCUSS CLINICAL FINDINGS WITH PT. ALSO MAKE HER AWARE OF ADMISSION, VERBALIZED UNDERSTANDING.
--- NOTE | 2017-04-07 02:14 | NUR ---
PT. PLACED ON BP. VOIDED A SMALL AMT. OF [place] URINE.
[2017-04-07 02:44] LABS: URINE BILIRUBIN - DIPSTICK NEGATIVE (NEGATIVE); URINE BLOOD DIPSTICK TRACE-INTACT (NEGATIVE); URINE CLARITY CLEAR; URINE COLOR YELLOW; URINE GLUCOSE - DIPSTICK NEGATIVE (NEGATIVE); URINE KETONE NEGATIVE (NEGATIVE); URINE LEUK ESTERASE NEGATIVE (NEGATIVE); URINE NITRITE - DIPSTICK NEGATIVE (Negative); URINE PROTEIN - DIPSTICK TRACE mg/dL (NEG-TRACE)
--- NOTE | 2017-04-07 03:14 | NUR ---
Admission Note Report Given to: ROMAINE MALIK Transported by: Wheelchair X Stretcher Transported with: X Nurse Transporter X Patent IV X O2 X Charter Coach Driver
--- NOTE | 2017-04-07 03:14 | NUR ---
report given to zackery mc.
[2017-04-07 03:30] VITALS: BP 139/76
[2017-04-07 03:38] VITALS: BP 139/76
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
--- NOTE | 2017-04-07 04:10 | NUR ---
lab here. blood drawn.
--- NOTE | 2017-04-07 06:45 | NUR ---
REPORT RECIEVED FROM HELENA GAVIN. PT RESTING SUPINE WITH EYES CLOSED. CALL LIGHT WITHIN REACH, SAFETY REVIEWED. WILL CONTINUE TO MONITOR.
--- NOTE | 2017-04-07 08:45 | NUR ---
NOTIFIED OF INABILITY TO PERFORM MRI AT THIS TIME. STATES UNDERSTANDING, WILL CANCEL TEST.
[2017-04-07 09:27] LABS: CHOLESTEROL HDL RATIO 2.3 (<4.4 (CALC))
--- NOTE | 2017-04-07 10:08 | NUR ---
HOME MEDICATIONS SENT DOWN TO PHARMACY, HYDROCODONE COUNTED BY GROUP CONTROLLER AND DANIELITO MATOS. 48 QUANTITY.
--- NOTE | 2017-04-07 10:35 | NUR ---
PT OFF THE FLOOR AT THIS TIME FOR PROCEDURE, STABLE AT TIME OF DEPARTURE.
--- NOTE | 2017-04-07 12:25 | NUR ---
PT GIVEN LORTAB AT THIS TIME FOR PAIN THAT IS IN THE LEFT FOOT. ASSISTED TO LYING POSITION. CALL LIGHT WITHIN REACH. INSTRUCTED PT TO CALL FOR ASSISTANCE. PT VERBALIZES UNDERSTANDING.
[2017-04-07 17:00] VITALS: BP 140/70
--- NOTE | 2017-04-07 18:55 | NUR ---
REPORT FROM DANIELITO GONZÁLES. ASSUMED PT. CARE.
[2017-04-07 19:00] VITALS: BP 127/66
--- NOTE | 2017-04-07 20:05 | NUR ---
PT. FOUND AWAKE, ALERT, ORIENTED X 3. SKIN WARM AND DRY. MARA. AFEBRILE. ANTUNEZ. PT. DENIES COMPLAINTS. RESPS EVEN AND UNLABORED. SKIN WARM AND DRY. C/O 8/10 PAIN TO FOOT. LUNGS WITH SCANT EXP WHEEZES TO UPPERS AND DIMINIEHED TO BASES. PT. REPORTS DIARRHEAL STOOLS. PT. SMELLS OF URINARY INCONTINENCE. ASSISTED TO CLEANSING. ALL LINENS CHANGED AT THIS TIME. ASSISTED TO BEDSIDE COMMODE. APPROX 100 CC OF URINE MIXED WITH SCANT LIQUID GRAINY STOOL.
--- NOTE | 2017-04-07 22:57 | NUR ---
PT. RESTING IN BED WITH EYES CLOSED. DENIES COMPLAINTS OF PAIN OR NEED AT THIS TIME. RESPS EVEN AND UNLABORED. SKIN WARM AND DRY. REMAINS AFEBRILE. STATES WITH IMPROVEMENT IN FOOT PAIN. CALL LIGHT REMAINS WITHIN REACH. WILL CONTINUE TO MONITOR.
[2017-04-07 23:00] VITALS: BP 104/57
[2017-04-08] VITALS (7 sets, daily range): BP systolic 94–125; BP diastolic 49–78
--- NOTE | 2017-04-08 02:01 | NUR ---
PT. RESTING IN BED WITH EYES CLOSED. RESPS EVEN AND UNLABORED. DENIES COMPLAINTS OR NEEDS AT THIS TIME. VSS. REMAINS SINUS ALIDA 52. INTERMITTENT EPISODES OF BP IN THE UPPER 40'S. SPO2 IS 94% ON 2L NC. NO DISTRESS NOTED.
[2017-04-08 05:48] LABS: HEMATOCRIT 38.4 % (37.0-47.0); HEMOGLOBIN 12.6 g/dl (12.0-16.0); IMMATURE GRANULOCYTES 0.7 % (0.0-1.0); MEAN CELL VOLUME 92.8 fL CALC (80.0-100.0); MEAN CORPUSCULAR HGB 30.4 pG CALC (26.0-32.0); MEAN CORPUSCULAR HGB CONC 32.8 g/L CALC (32.0-36.0); NEUT# 2.57 thou/uL (2.00-7.15); RED BLOOD COUNT 4.14 mill/uL (4.20-5.60); RED CELL DISTRI WIDTH 13.5 % (11.5-15.5)
--- NOTE | 2017-04-08 05:50 | NUR ---
PT. REMAINS STABLE AT THIS TIME. RESTING WITH EYES CLOSED. DENIES COMPLAINTS OF PAIN OR NEED. VSS. REMAINS SINUS ALIDA ON THE MONITOR. RESPS REMAINS EVEN AND UNLABORED. SKIN WARM AND DRY. CALL LIGHT REMAINS WITHIN REACH.
[2017-04-08 06:03] LABS: ALBUMIN 3.4 g/dL (3.2-5.0); ALKALINE PHOSPHATASE 69 u/l (38-126); ANION GAP 14 (6-22 (CALC)); BILIRUBIN, TOTAL 0.4 mg/dL (0.0-1.4); BUN 17 mg/dL (8-23); BUN/CREATININE RATIO 24 (12-20 (CALC)); CALCIUM 8.6 mg/dL (8.4-10.2); CARBON DIOXIDE 25 mmol/l (22-30); CHLORIDE 104 mmol/l (95-108); CREATININE 0.7 mg/dL (0.5-1.0); GFR > 60 ML/MIN (>=60 (CALC)); GFR FOR AFR.AMER. > 60 ML/MIN (>=60 (CALC)); GLUCOSE 87 mg/dL (82-115); POTASSIUM 3.9 mmol/l (3.5-5.1); SGOT/AST 11 u/l (9-36); SGPT/ALT 21 u/l (11-66); SODIUM 140 mmol/l (137-146); TOTAL PROTEIN 6.2 g/dL (6.3-8.2)
--- NOTE | 2017-04-08 06:45 | NUR ---
REPORT RECEIVED FROM DANIELITO GOLDBERG. PT RESTING WITH EYES CLOSED. PT DOES NOT APPEAR TO HAVE PAIN, DISCOMFORT OR SOB. CALL LIGHT WITHIN REACH. WILL CONTINUE TO MONITOR.
--- NOTE | 2017-04-08 08:05 | NUR ---
MD IN TO SEE PT AT THIS TIME. METOPROLOL HELD R/T HEART RATE BELOW PARAMETERS, AND PT STILL C/O DIZZINESS. PHYSICAL THERAPY CONSULTED WELL.
--- NOTE | 2017-04-08 08:49 | NUR ---
PT OFF FLOOR AT THIS TIME FOR SHOWER ON MED-SURG UNIT. STABLE AT TIME OF DEPARTURE, OCCOMPANIED BY RODNEY CELIS.
--- NOTE | 2017-04-08 09:30 | NUR ---
PT ARRIVED BACK TO THE FLOOR IN STABLE CONDITION. PT IS AMBULATORY TO CHAIR. PHYSICAL THERAPY IN TO EVALUATE PT AT THIS TIME. PT AMBULATES WITHOUT THE NEED OF OXYGEN. USES WALKER FOR ASSISTIVE DEVICE.
--- NOTE | 2017-04-08 18:45 | NUR ---
RECEIVED REPORT FROM NIVIA ARAIZA RN. INTRODUCED SELF TO PT, ALERT AND ORIENTED X3, NO DISTRESS NOTED, DENIES PAIN, OR SOB, ON 2LPM OXYGEN VIA NC, 22G LAC SALINE LOCKED, FLUSHED WELL, APPEARS HEALTHY, WILL FOLLOW UP WITH ASSESSMENT AND MED SCHEDULE, CALL BUENROSTRO AT REACH.
--- NOTE | 2017-04-08 21:28 | NUR ---
MEDICATED WITH LORTAB FOR BURNING PAIN IN LEFT FOOT, RATES IT AT 8/10, STATES "PAIN IS PROBABLY FROM THE STROKE I HAD IN 2012." WEAKNESS NOTED ON LEFT SIDE, BUT PT ABLE TO BEAR WEIGH, USES WALKER AND W/C AT HOME TO AMBULATE, WALKER AT BEDSIDE, WILL CONTINUE TO REASSESS, MINOR FACIAL GRIMACE NOTED. CALL BUENROSTRO AT REACH.
--- NOTE | 2017-04-08 22:17 | NUR ---
PT STATES PAIN IS BETTER, RATES IT AT 2/10 NOW, RESP ARE EVEN AND UNLABORED, VSS, NO S/S OF DISTRESS NOTED. CALL BUENROSTRO AT REACH.
[2017-04-09] VITALS: BP 108/53
--- NOTE | 2017-04-09 | NUR ---
PT VOICES NO COMPLAINTS AT THIS TIME, NO DISTRESS NOTED, RESP ARE EVEN AND UNLABORED, DENIES PAIN OR SOB, WILL CONTINUE TO MONITOR.
--- NOTE | 2017-04-09 02:13 | NUR ---
ASSISTED PT OOB TO BSC, UNSTEADY GAIT NOTED, AND LEFT SIDE WEAKNESS, VOIDED 100CC OF CLEAR CONCENTRATED YELLOW URINE, STRONG ODOR NOTED, TOLERATED ACTIVITY WELL, ASSISTED BACK TO BED, LYING IN BUCK'S POSITION, RESP ARE EVEN AND UNLABORED, NO DISTRESS NOTED, VSS, REVERBERATORY SKIMMER COUGH NOTED, WILL CONTINUE TO MONITOR. CALL BUENROSTRO AT REACH.
[2017-04-09 04:00] VITALS: BP 110/56
--- NOTE | 2017-04-09 04:37 | NUR ---
PT HR DECREASES TO 52 WHEN SLEEPING AND SPO2 TO 88%, APPEARS TO BE SLEEPING WITH EYES CLOSED, NO DISTRESS NOTED, AROUSES TO VERBAL OR PHYSICAL STIMULI, RESP ARE EVEN AND UNLABORED, DENIES PAIN OR SOB, WILL CONTINUE TO MONITOR, CALL BUENROSTRO AT REACH.
[2017-04-09 06:30] LABS: HEMATOCRIT 36.4 % (37.0-47.0); IMMATURE GRANULOCYTES 0.5 % (0.0-1.0); MEAN CELL VOLUME 92.4 fL CALC (80.0-100.0); MEAN CORPUSCULAR HGB 30.5 pG CALC (26.0-32.0); NEUT# 2.47 thou/uL (2.00-7.15); RED BLOOD COUNT 3.94 mill/uL (4.20-5.60); RED CELL DISTRI WIDTH 13.4 % (11.5-15.5)
[2017-04-09 06:42] LABS: ALBUMIN 3.3 g/dL (3.2-5.0); ALKALINE PHOSPHATASE 62 u/l (38-126); ANION GAP 14 (6-22 (CALC)); BILIRUBIN, TOTAL 0.3 mg/dL (0.0-1.4); BUN 19 mg/dL (8-23); BUN/CREATININE RATIO 23 (12-20 (CALC)); CALCIUM 8.8 mg/dL (8.4-10.2); CARBON DIOXIDE 27 mmol/l (22-30); CHLORIDE 103 mmol/l (95-108); CREATININE 0.8 mg/dL (0.5-1.0); GFR > 60 ML/MIN (>=60 (CALC)); GFR FOR AFR.AMER. > 60 ML/MIN (>=60 (CALC)); GLUCOSE 83 mg/dL (82-115); POTASSIUM 3.6 mmol/l (3.5-5.1); SGOT/AST 10 u/l (9-36); SGPT/ALT 19 u/l (11-66); SODIUM 140 mmol/l (137-146); TOTAL PROTEIN 5.9 g/dL (6.3-8.2)
--- NOTE | 2017-04-09 07:10 | NUR ---
PT SITTING IN RECLINER WATCHING TV, DENIES ANY CHEST PAIN OR PRESSURE, A & O X3, PERRL, HR 50, RESP. 20, BP 133/60, O2 90% ON 2.5L VIA NC, DIMINISHED LUNG SOUNDS IN ALL FARR WITH EXPIRATORY WHEEZES, ACTIVE BOWEL SOUNDS , STRONG RADIAL PULSES, WEAK PEDAL PULSES, ACTIVE BOWEL SOUNDS, 22G LAC IV SALINE LOCKED, AM ASSESSMENT COMPLETE, SEE INTERVENTIONS, SAFETY MEASURES REINFORCED, CALL BUENROSTRO WITHIN REACH
--- NOTE | 2017-04-09 07:30 | NUR ---
SETUP ASSISTANCE PROVIDED WITH GISSELLE LOAIZA
[2017-04-09 08:00] VITALS: BP 135/68
[2017-04-09 08:48] VITALS: BP 135/68
--- NOTE | 2017-04-09 09:00 | NUR ---
DR DEGROOT AT BEDSIDE DISCUSSING PLAN OF CARE
--- NOTE | 2017-04-09 10:09 | NUR ---
Discharge instructions given. Patient verbalizes understanding of same. Discharged in stable condition via Wheelchair to Home with family. All belongings sent with pt.
== END 2017-04-09 10:09 | disposition home or self-care (01) | DRG 309 ==
LOC: ED 21:58 → ED-I 04-07 01:50 → ED 04-07 03:11 → ICU 04-07 03:12
PROVIDERS: Emergency Medicine; ADMIT Internal Medicine Geriatric Medicine; ATTEND Internal Medicine Geriatric Medicine
DX: R00.1 Bradycardia, unspecified (principal); I25.110 Atherosclerotic heart disease of native coronary artery with unstable angina pectoris; I69.959 Hemiplegia and hemiparesis following unspecified cerebrovascular disease affecting unspecified side; J44.9 Chronic obstructive pulmonary disease, unspecified; I10 Essential (primary) hypertension; K21.9 Gastro-esophageal reflux disease without esophagitis; F17.210 Nicotine dependence, cigarettes, uncomplicated; E78.5 Hyperlipidemia, unspecified; G89.29 Other chronic pain; M54.5 Low back pain; Z87.11 Personal history of peptic ulcer disease; Z96.641 Presence of right artificial hip joint; Z95.5 Presence of coronary angioplasty implant and graft

== ENCOUNTER 2017-09-24 20:36 | Inpatient (IN) | payer MEDICARE, MEDICAID ==
[~2017-09-24] VITALS: Ht 149.9 cm; Wt 124.8 kg
[2017-09-24 21:42] LABS: URINE BILIRUBIN - DIPSTICK NEGATIVE (NEGATIVE); URINE BLOOD DIPSTICK NEGATIVE (NEGATIVE); URINE COLOR YELLOW; URINE GLUCOSE - DIPSTICK NEGATIVE (NEGATIVE); URINE KETONE NEGATIVE (NEGATIVE); URINE LEUK ESTERASE NEGATIVE (NEGATIVE); URINE NITRITE - DIPSTICK NEGATIVE (Negative); URINE PROTEIN - DIPSTICK NEGATIVE (NEG-TRACE); URINE SPECIFIC GRAVITY 1.015; URINE UROBILINOGEN - DIPSTICK 0.2 E.U./dL (0.2)
[2017-09-24 21:46] LABS: URINE CLARITY CLEAR
[2017-09-24 21:47] LABS: HEMATOCRIT 40.7 % (37.0-47.0); HEMOGLOBIN 13.2 g/dl (12.0-16.0); IMMATURE GRANULOCYTES 0.5 % (0.0-1.0); MEAN CELL VOLUME 91.3 fL CALC (80.0-100.0); MEAN CORPUSCULAR HGB 29.6 pG CALC (26.0-32.0); MEAN CORPUSCULAR HGB CONC 32.4 g/L CALC (32.0-36.0); NEUT# 8.61 thou/uL (2.00-7.15); RED BLOOD COUNT 4.46 mill/uL (4.20-5.60); RED CELL DISTRI WIDTH 13.7 % (11.5-15.5)
[2017-09-24 21:56] LABS: ALBUMIN 3.7 g/dL (3.2-5.0); ANION GAP 16 (6-22 (CALC)); BILIRUBIN, TOTAL 0.4 mg/dL (0.0-1.4); BUN 10 mg/dL (8-23); BUN/CREATININE RATIO 13 (12-20 (CALC)); CARBON DIOXIDE 28 mmol/l (22-30); CHLORIDE 103 mmol/l (95-108); CREATININE 0.8 mg/dL (0.5-1.0); GFR > 60 ML/MIN (>=60 (CALC)); GFR FOR AFR.AMER. > 60 ML/MIN (>=60 (CALC)); SGOT/AST 15 u/l (9-36); SGPT/ALT 20 u/l (11-66); SODIUM 142 mmol/l (137-146); TOTAL PROTEIN 6.5 g/dL (6.3-8.2)
[2017-09-24 21:58] LABS: ALKALINE PHOSPHATASE 105 u/l (38-126)
[2017-09-24 22:07] LABS: INFLUENZA A NONE DETECTED (NONE DETECT); INFLUENZA B NONE DETECTED (NONE DETECT)
[2017-09-25 00:15] VITALS: BP 126/55
[2017-09-25 05:35] VITALS: BP 121/36
[2017-09-25 06:35] LABS: ALBUMIN 3.7 g/dL (3.2-5.0); ALKALINE PHOSPHATASE 97 u/l (38-126); ANION GAP 14 (6-22 (CALC)); BILIRUBIN, TOTAL 0.5 mg/dL (0.0-1.4); BUN 12 mg/dL (8-23); BUN/CREATININE RATIO 15 (12-20 (CALC)); CALCULATED LDLCHOLESTEROL 39 mg/dL (62-129 (CALC)); CARBON DIOXIDE 27 mmol/l (22-30); CHLORIDE 105 mmol/l (95-108); CHOLESTEROL HDL RATIO 1.9 (<4.4 (CALC)); CREATININE 0.8 mg/dL (0.5-1.0); GFR > 60 ML/MIN (>=60 (CALC)); GFR FOR AFR.AMER. > 60 ML/MIN (>=60 (CALC)); HDL CHOLESTEROL 64 mg/dL (>=40); POTASSIUM 3.9 mmol/l (3.5-5.1); SGOT/AST 13 u/l (9-36); SGPT/ALT 22 u/l (11-66); SODIUM 142 mmol/l (137-146); TOTAL CHOLESTEROL 118 mg/dl (0-199); TOTAL PROTEIN 6.5 g/dL (6.3-8.2); TOTAL TRIGLYCERIDES 75 mg/dl (30-149); VLDL CHOLESTROL 15 mg/dl (0-48 (CALC))
[2017-09-25 06:57] LABS: HEMATOCRIT 38.3 % (37.0-47.0); HEMOGLOBIN 12.6 g/dl (12.0-16.0); IMMATURE GRANULOCYTES 0.3 % (0.0-1.0); MEAN CELL VOLUME 90.8 fL CALC (80.0-100.0); MEAN CORPUSCULAR HGB 29.9 pG CALC (26.0-32.0); MEAN CORPUSCULAR HGB CONC 32.9 g/L CALC (32.0-36.0); NEUT# 6.95 thou/uL (2.00-7.15); RED BLOOD COUNT 4.22 mill/uL (4.20-5.60); RED CELL DISTRI WIDTH 13.7 % (11.5-15.5)
[2017-09-25 07:44] VITALS: BP 158/85
[2017-09-25 13:00] VITALS: BP 116/66
[2017-09-25 15:52] VITALS: BP 154/74
[2017-09-25 19:00] VITALS: BP 130/78
[2017-09-26 00:50] VITALS: BP 129/76
[2017-09-26 04:35] VITALS: BP 115/71
[2017-09-26 05:11] LABS: HEMATOCRIT 35.7 % (37.0-47.0); HEMOGLOBIN 11.6 g/dl (12.0-16.0); IMMATURE GRANULOCYTES 0.4 % (0.0-1.0); MEAN CELL VOLUME 90.8 fL CALC (80.0-100.0); MEAN CORPUSCULAR HGB 29.5 pG CALC (26.0-32.0); MEAN CORPUSCULAR HGB CONC 32.5 g/L CALC (32.0-36.0); NEUT# 6.26 thou/uL (2.00-7.15); RED BLOOD COUNT 3.93 mill/uL (4.20-5.60); RED CELL DISTRI WIDTH 13.6 % (11.5-15.5)
[2017-09-26 05:25] LABS: ANION GAP 14 (6-22 (CALC)); BUN 13 mg/dL (8-23); BUN/CREATININE RATIO 16 (12-20 (CALC)); CARBON DIOXIDE 26 mmol/l (22-30); CHLORIDE 108 mmol/l (95-108); CREATININE 0.8 mg/dL (0.5-1.0); GFR > 60 ML/MIN (>=60 (CALC)); GFR FOR AFR.AMER. > 60 ML/MIN (>=60 (CALC)); SODIUM 144 mmol/l (137-146)
[2017-09-26 11:12] VITALS: BP 121/62
[2017-09-26 15:34] VITALS: BP 136/68
[2017-09-26 19:00] VITALS: BP 138/85
[2017-09-27 00:44] VITALS: BP 122/74
[2017-09-27 04:06] VITALS: BP 117/72
[2017-09-27 06:39] LABS: HEMATOCRIT 37.7 % (37.0-47.0); HEMOGLOBIN 12.4 g/dl (12.0-16.0); IMMATURE GRANULOCYTES 0.4 % (0.0-1.0); MEAN CELL VOLUME 91.3 fL CALC (80.0-100.0); MEAN CORPUSCULAR HGB CONC 32.9 g/L CALC (32.0-36.0); NEUT# 5.54 thou/uL (2.00-7.15); RED BLOOD COUNT 4.13 mill/uL (4.20-5.60); RED CELL DISTRI WIDTH 13.7 % (11.5-15.5)
[2017-09-27 06:57] LABS: ANION GAP 15 (6-22 (CALC)); BUN 13 mg/dL (8-23); BUN/CREATININE RATIO 16 (12-20 (CALC)); CARBON DIOXIDE 27 mmol/l (22-30); CHLORIDE 105 mmol/l (95-108); CREATININE 0.8 mg/dL (0.5-1.0); GFR > 60 ML/MIN (>=60 (CALC)); GFR FOR AFR.AMER. > 60 ML/MIN (>=60 (CALC)); POTASSIUM 4.3 mmol/l (3.5-5.1); SODIUM 142 mmol/l (137-146)
[2017-09-27 09:00] VITALS: BP 108/70
[2017-09-27 15:08] VITALS: BP 121/75
[2017-09-27 19:02] VITALS: BP 120/80
[2017-09-28 04:00] VITALS: BP 105/62
[2017-09-28 05:10] LABS: HEMATOCRIT 36.6 % (37.0-47.0); HEMOGLOBIN 11.9 g/dl (12.0-16.0); IMMATURE GRANULOCYTES 0.4 % (0.0-1.0); MEAN CELL VOLUME 91.3 fL CALC (80.0-100.0); MEAN CORPUSCULAR HGB 29.7 pG CALC (26.0-32.0); MEAN CORPUSCULAR HGB CONC 32.5 g/L CALC (32.0-36.0); NEUT# 4.54 thou/uL (2.00-7.15); RED BLOOD COUNT 4.01 mill/uL (4.20-5.60); RED CELL DISTRI WIDTH 13.9 % (11.5-15.5)
[2017-09-28 05:27] LABS: ALBUMIN 3.3 g/dL (3.2-5.0); ALKALINE PHOSPHATASE 83 u/l (38-126); ANION GAP 15 (6-22 (CALC)); BILIRUBIN, TOTAL 0.3 mg/dL (0.0-1.4); BUN 16 mg/dL (8-23); BUN/CREATININE RATIO 19 (12-20 (CALC)); CARBON DIOXIDE 26 mmol/l (22-30); CHLORIDE 105 mmol/l (95-108); CREATININE 0.9 mg/dL (0.5-1.0); GFR > 60 ML/MIN (>=60 (CALC)); GFR FOR AFR.AMER. > 60 ML/MIN (>=60 (CALC)); POTASSIUM 4.3 mmol/l (3.5-5.1); SGOT/AST 13 u/l (9-36); SGPT/ALT 17 u/l (11-66); SODIUM 141 mmol/l (137-146)
[2017-09-28 07:30] VITALS: BP 125/65
[2017-09-28 16:22] VITALS: BP 120/68
[2017-09-28 19:00] VITALS: BP 121/77
[2017-09-29 05:06] VITALS: BP 101/68
[2017-09-29 05:24] LABS: HEMATOCRIT 36.3 % (37.0-47.0); HEMOGLOBIN 11.6 g/dl (12.0-16.0); IMMATURE GRANULOCYTES 0.5 % (0.0-1.0); MEAN CELL VOLUME 91.9 fL CALC (80.0-100.0); MEAN CORPUSCULAR HGB 29.4 pG CALC (26.0-32.0); NEUT# 4.15 thou/uL (2.00-7.15); RED BLOOD COUNT 3.95 mill/uL (4.20-5.60); RED CELL DISTRI WIDTH 13.8 % (11.5-15.5)
[2017-09-29 05:51] LABS: ALBUMIN 3.3 g/dL (3.2-5.0); ALKALINE PHOSPHATASE 81 u/l (38-126); ANION GAP 16 (6-22 (CALC)); BILIRUBIN, TOTAL 0.2 mg/dL (0.0-1.4); BUN 19 mg/dL (8-23); BUN/CREATININE RATIO 21 (12-20 (CALC)); CARBON DIOXIDE 25 mmol/l (22-30); CHLORIDE 106 mmol/l (95-108); CREATININE 0.9 mg/dL (0.5-1.0); GFR > 60 ML/MIN (>=60 (CALC)); GFR FOR AFR.AMER. > 60 ML/MIN (>=60 (CALC)); POTASSIUM 4.1 mmol/l (3.5-5.1); SGOT/AST 13 u/l (9-36); SGPT/ALT 23 u/l (11-66); SODIUM 143 mmol/l (137-146)
[2017-09-29 07:28] VITALS: BP 125/62
[2017-09-29 15:13] VITALS: BP 109/61
[2017-09-29 18:52] VITALS: BP 139/80
[2017-09-30 04:25] VITALS: BP 114/69
[2017-09-30 07:47] VITALS: BP 154/84
[2017-09-30] MEDS ORDERED: ROCEPHIN 1 GM1 GM IM (10:11)
[2017-09-30] MEDS ORDERED: ZITHROMAX500 M1 IV (10:12)
[2017-09-30] MEDS ORDERED: DUONEB IN (10:13)
[2017-09-30 10:29] VITALS: BP 109/50
[2017-09-30 15:30] VITALS: BP 117/71
== END 2017-09-30 16:41 | DRG 190 ==
LOC: ED 20:36 → ED-I 22:50 → ED 23:40 → MS2 23:41
PROVIDERS: Emergency Medicine; ADMIT Internal Medicine Geriatric Medicine; ATTEND Internal Medicine Geriatric Medicine
DX: J44.0 Chronic obstructive pulmonary disease with (acute) lower respiratory infection (principal); J18.9 Pneumonia, unspecified organism; J91.8 Pleural effusion in other conditions classified elsewhere; I69.951 Hemiplegia and hemiparesis following unspecified cerebrovascular disease affecting right dominant side; R00.1 Bradycardia, unspecified; J44.1 Chronic obstructive pulmonary disease with (acute) exacerbation; I10 Essential (primary) hypertension; I25.10 Atherosclerotic heart disease of native coronary artery without angina pectoris; K21.9 Gastro-esophageal reflux disease without esophagitis; K27.9 Peptic ulcer, site unspecified, unspecified as acute or chronic, without hemorrhage or perforation; E78.5 Hyperlipidemia, unspecified; F41.9 Anxiety disorder, unspecified; M54.5 Low back pain; G89.29 Other chronic pain; F17.210 Nicotine dependence, cigarettes, uncomplicated; Z96.641 Presence of right artificial hip joint
CPT/HCPCS: G0378

== ENCOUNTER 2018-04-05 16:18 | Emergency (ER) | payer MEDICARE ==
[~2018-04-05] VITALS: Ht 149.9 cm; Wt 72.7 kg
[~2018-04-05 16:18] MED LIST changes: +ROCEPHIN 1 GM1 GM IM; +ZITHROMAX500 M1 IV
[2018-04-05] MEDS ORDERED: OMEPRAZOLE20 M1 PO (17:15)
[2018-04-05] MEDS ORDERED: ULTRAM50 M1 PO (20:48)
[2018-04-05 20:50] VITALS: BP 130/72
== END 2018-04-05 21:55 | disposition home or self-care (01) ==
LOC: ED 16:18
DX: S73.102A Unspecified sprain of left hip, initial encounter (principal); J44.9 Chronic obstructive pulmonary disease, unspecified; F41.9 Anxiety disorder, unspecified; M19.90 Unspecified osteoarthritis, unspecified site; E78.5 Hyperlipidemia, unspecified; I10 Essential (primary) hypertension; F32.9 Major depressive disorder, single episode, unspecified; K27.9 Peptic ulcer, site unspecified, unspecified as acute or chronic, without hemorrhage or perforation; F17.210 Nicotine dependence, cigarettes, uncomplicated; K21.9 Gastro-esophageal reflux disease without esophagitis; X50.9XXA Other and unspecified overexertion or strenuous movements or postures, initial encounter; Z95.5 Presence of coronary angioplasty implant and graft; Z99.81 Dependence on supplemental oxygen; Z86.73 Personal history of transient ischemic attack (TIA), and cerebral infarction without residual deficits

== ENCOUNTER 2018-05-05 15:44 | Observation (INO) | payer MEDICARE ==
[~2018-05-05] VITALS: Ht 149.9 cm; Wt 73.1 kg
[~2018-05-05 15:44] MED LIST changes: +OMEPRAZOLE20 M1 PO; +ULTRAM50 M1 PO
[2018-05-05] MEDS ORDERED: HYDROCODONE/ACE1 TAB PO (16:32)
[2018-05-05] MEDS ORDERED: METOPROL TAR25 M1 PO (16:33)
[2018-05-05] MEDS ORDERED: NARCAN4 MG/0.1 M (16:34)
[2018-05-05 17:04] LABS: HEMATOCRIT 38.7 % (37.0-47.0); HEMOGLOBIN 12.6 g/dl (12.0-16.0); IMMATURE GRANULOCYTES 0.4 % (0.0-5.0); MEAN CELL VOLUME 91.7 fL CALC (80.0-100.0); MEAN CORPUSCULAR HGB 29.9 pG CALC (26.0-32.0); MEAN CORPUSCULAR HGB CONC 32.6 g/L CALC (32.0-36.0); NEUT# 4.78 thou/uL (2.00-7.15); RED BLOOD COUNT 4.22 mill/uL (4.20-5.60)
[2018-05-05 17:14] VITALS: BP 122/78
[2018-05-05 17:31] LABS: ALBUMIN 3.5 g/dL (3.2-5.0); ALKALINE PHOSPHATASE 86 u/l (38-126); ANION GAP 11 (6-22 (CALC)); BILIRUBIN, TOTAL 0.2 mg/dL (0.0-1.4); BUN 15 mg/dL (8-23); BUN/CREATININE RATIO 22 (12-20 (CALC)); CARBON DIOXIDE 31 mmol/l (22-30); CHLORIDE 103 mmol/l (95-108); CREATININE 0.7 mg/dL (0.5-1.0); GFR > 60 ML/MIN (>=60 (CALC)); GFR FOR AFR.AMER. > 60 ML/MIN (>=60 (CALC)); POTASSIUM 3.6 mmol/l (3.5-5.1); SGOT/AST 12 u/l (9-36); SODIUM 142 mmol/l (137-146); TOTAL PROTEIN 6.5 g/dL (6.3-8.2)
[2018-05-05 19:28] VITALS: BP 136/71
--- NOTE | 2018-05-05 19:30 | NUR ---
BEDSIDE REPORT RECEIVED FROM DAY NURSE. PT DENIES ANY NEEDS AT THIS TIME. PT IS IN BED W/LIGHTS LOW AND TV ON. CALL LIGHT AT BEDSIDE AND PT ENCOURAGED TO CALL.
--- NOTE | 2018-05-05 20:52 | NUR ---
PT MEDICATED ORDERS PROVIDE AND FOR PAIN IN LEFT FOOT AND LEFT HIP. ASSISTED IN REPOSITIONING FOR COMFORT. PT DENIES ANY OTHER NEEDS AT THIS TIME. CALL LIGHT AT SIDE.
--- NOTE | 2018-05-05 22:00 | NUR ---
PT OFF UNIT FLOOR FOR XRAY ACCOMPANIED BY AIDE.
--- NOTE | 2018-05-05 22:20 | NUR ---
PT ARRIVED BACK TO UNIT IN GOOD CONDITION VIA WC ACCOMPANIED BY AIDE. IV FLUIDS READMINISTERED AND PT ASSISTED IN POSITIONING IN BED. DENIES ANY OTHER NEEDS AND REPORTS THAT SHE IS GOING TO ATTEMPT TO GO TO SLEEP.
[2018-05-05 23:01] LABS: URINE BILIRUBIN - DIPSTICK NEGATIVE (NEGATIVE); URINE BLOOD DIPSTICK NEGATIVE (NEGATIVE); URINE COLOR YELLOW; URINE GLUCOSE - DIPSTICK NEGATIVE (NEGATIVE); URINE KETONE NEGATIVE (NEGATIVE); URINE LEUK ESTERASE NEGATIVE (Negative); URINE NITRITE - DIPSTICK NEGATIVE (Negative); URINE PROTEIN - DIPSTICK NEGATIVE (NEG-TRACE); URINE SPECIFIC GRAVITY 1.015; URINE UROBILINOGEN - DIPSTICK 0.2 E.U./dL (0.2)
[2018-05-05 23:05] LABS: URINE CLARITY CLEAR
--- NOTE | 2018-05-06 03:51 | NUR ---
PT IV FLUIDS REPLENISHED AT THIS TIME. PT WAS SLEEPING SOUNDLY UPON MY ENTERING THE ROOM. NO S/S OF DISTRESS AT THIS TIME. PT DENIES ANY NEEDS, CALL LIGHT AT BEDSIDE. PT RETURNING TO SLEEP.
[2018-05-06 05:19] VITALS: BP 98/60
[2018-05-06 07:50] VITALS: BP 82/50
--- NOTE | 2018-05-06 07:50 | NUR ---
ASSESSMENT IS COMPLTED: IV SITE IS FREE FROM REDNESS OR EDEMA. HR IS REG, PULSES ARE STRONG X4, ABD IS SOFT WITH ACTIVE BS. BREATH SOUNDS ARE CLEAR BILATERALLY. CONTINUE TO OSBERVE AND MONITOR.
[2018-05-06 08:30] VITALS: BP 130/82
[2018-05-06 11:15] VITALS: BP 123/63
--- NOTE | 2018-05-06 11:23 | NUR ---
DAUGHTER CALLED AND INQUIRED ABOUT PT. INFORMED THAT HE WILL KEEP HER A FEW DAYS. DUE TO PNEUMONIA
--- NOTE | 2018-05-06 12:15 | NUR ---
PT HAS BEEN RELAXING IN BED WITH NO DISTRESS NOTED IV SITE IS FREE FROM REDNESS OR EDEMA.
[2018-05-06 15:10] VITALS: BP 135/57
--- NOTE | 2018-05-06 16:00 | NUR ---
PT IS RELAXING IN BED WITH NO DISTRESS NOTED. IV SITE IS FREE FROM REDNESS OR EDEMA.
--- NOTE | 2018-05-06 19:25 | NUR ---
REPORT RECEIVED FROM DAY NURSE. NO S/S OF DISTRESS NOTED UPON ENTERING ROOM, PT REPORTED TO ME THAT SHE HAD WET HER BRIEF. PT UP TO BEDSIDE COMMODE AND CLEANED OF A LARGE AMOUNT OF INCONTINENT URINE/SARAH-CARE PROVIDED AT THIS TIME. BEDDING WAS CHANGED AND PT ASSISTED BACK TO BED. UPON AMBULATION PT EXPERIENCED SOB AND INCREASED WHEEZING. RELEIVED SOON SHE WAS BACK TO BED. O2 WAS ON AT ALL TIMES. POC DISCUSSED W/PT AND PT WAS ENCOURAGED TO CALL SOON SHE FEELS SHE NEEDS TO URINATE OR IMMEDIATELY UPON URINATING IF SHE DOESN'T KNOW PRIOR AND NOT TO WAIT. CALL LIGHT IS IN HAND. V/S ASSESSED AT THIS TIME AND ASSESSMENT COMPLETED. LUNGS SOUNDS ARE WHEEZING THROUGHOUT. WEAKNESS TO LEFT HAND, LEG AND FOOT.
[2018-05-06 20:20] VITALS: BP 132/75
--- NOTE | 2018-05-06 21:05 | NUR ---
PT MEDICATED ORDERS PROVIDE AND FOR ANXIETY. PT REQUESTED EARLY BREATHING TREATMENT FROM RESPIRATORY/CALLED FOR EARLY TREATMENT. WILL CONTINUE TO MONITOR. PT ASSISTED UP TO BSC AND CLEANED OF INCONTINENT URINE.
--- NOTE | 2018-05-06 22:31 | NUR ---
PT ASSISTED UP TO BSC AND BACK TO BED. PT BREIF WAS WET OF INCONTINENT URINE/REPLACED, SARAH CARE PROVIDED AND BACK TO BED/POSITIONED FOR COMFORT.
[2018-05-07 00:25] VITALS: BP 132/84
[2018-05-07 04:40] VITALS: BP 132/84
--- NOTE | 2018-05-07 04:40 | NUR ---
PT V/S ASSESSED AND UP TO BEDSIDE COMMODE. SHE WAS CLEANED OF INCONTINENT URINE AND BEDDING CHANGED. PT ASSISTED BACK TO BED. O2NC @3L ON. PT BECOMES VERY SOB UPON EXERTION TO BSC AND BACK TO THE BED. PT DENIES ANY OTHER NEEDS AT THIS TIME. CALL LIGHT AT SIDE.
[2018-05-07 05:27] LABS: HEMATOCRIT 39.6 % (37.0-47.0); IMMATURE GRANULOCYTES 0.6 % (0.0-5.0); MEAN CELL VOLUME 90.8 fL CALC (80.0-100.0); MEAN CORPUSCULAR HGB 29.8 pG CALC (26.0-32.0); MEAN CORPUSCULAR HGB CONC 32.8 g/L CALC (32.0-36.0); NEUT# 5.83 thou/uL (2.00-7.15); RED BLOOD COUNT 4.36 mill/uL (4.20-5.60)
[2018-05-07 05:43] LABS: ANION GAP 14 (6-22 (CALC)); BUN 8 mg/dL (8-23); BUN/CREATININE RATIO 14 (12-20 (CALC)); CARBON DIOXIDE 26 mmol/l (22-30); CHLORIDE 106 mmol/l (95-108); CREATININE 0.6 mg/dL (0.5-1.0); GFR > 60 ML/MIN (>=60 (CALC)); GFR FOR AFR.AMER. > 60 ML/MIN (>=60 (CALC)); POTASSIUM 3.8 mmol/l (3.5-5.1); SODIUM 142 mmol/l (137-146)
--- NOTE | 2018-05-07 05:50 | NUR ---
PT MEDICATED FOR PAIN REPORTED IN LEFT FOOT AND HIP 8.5/10.
--- NOTE | 2018-05-07 07:00 | NUR ---
SHIFT CHANGE REPORT FROM KAREN HERNANDEZ SLEEPING BUT AWAKENED TO VERBAL STIMULI, O2 @ 3L VIA NC IN PLACE, ORIENTED X 3, CALL BUENROSTRO IN REACH.
[2018-05-07 08:02] VITALS: BP 134/62
[2018-05-07 09:40] VITALS: BP 134/55
--- NOTE | 2018-05-07 09:52 | NUR ---
DR DEGROOT HERE ROUNDING AND GAVE VERBAL ORDERS WHILE PT RESTING IN BED, PT GOT OOB GOT VERY WINDED AND WAS ASSISTED BACK TO BED, CALL BUENROSTRO IN REACH, WILL CONTINUE TO MONITOR.
--- NOTE | 2018-05-07 11:18 | NUR ---
RESTING IN BED AT THIS TIME, SOB ON EXERTION, ALL NEEDS MET/ADDRESSED, CALL BUENROSTRO IN REACH.
--- NOTE | 2018-05-07 16:00 | NUR ---
RESTING IN BED IN LEFT SIDE-LYING POSITION, NO C/O DISCOMFORT, WILL CONTINUE TO MONITOR.
[2018-05-07 17:41] VITALS: BP 141/75
--- NOTE | 2018-05-07 19:22 | NUR ---
REPORT RECEIVED FROM DAY NURSE. PT IS CURLED UP ON SIDE IN BED ASLEEP. NO S/S OF DISTRESS. CALL LIGHT IS AT BEDSIDE. WILL CONTINUE TO MONITOR
[2018-05-07 20:05] VITALS: BP 126/63
--- NOTE | 2018-05-07 22:17 | NUR ---
PT MEDICATED W/PM MEDICATIONS ORDERS PROVIDE AND FOR PAIN REPORTED IN LEFT HIP AND LEFT FOOT 01/31. PT IS TALKATIVE AND ASSISTED UP TO BSC AND CLEANED OF INCONTINENT URINE. BEDDING CHANGED DUE TO INCONTINENCE. PT AGREED TO SIT IN RECLINER FOR A LITTLE WHILE. POC DISCUSSED. WILL CONTINUE TO MONITOR.
--- NOTE | 2018-05-08 02:06 | NUR ---
REPORT RECEIVED FROM DAY NURSE. PT IS IN BED CURLED OVER ON SIDE ASLEEP, LIGHTS AND TV ARE OFF. NO S/S OF DISTRESS NOTED.
--- NOTE | 2018-05-08 02:50 | NUR ---
PT IS SLEEPING AT THIS TIME. NO S/S OF DISTRESS NOTED. CALL LIGHT AT BEDSIDE. WILL CONTINUE TO MONITOR
[2018-05-08 04:35] VITALS: BP 121/56
[2018-05-08 05:57] LABS: HEMATOCRIT 39.5 % (37.0-47.0); HEMOGLOBIN 13.1 g/dl (12.0-16.0); IMMATURE GRANULOCYTES 0.5 % (0.0-5.0); MEAN CORPUSCULAR HGB 30.2 pG CALC (26.0-32.0); MEAN CORPUSCULAR HGB CONC 33.2 g/L CALC (32.0-36.0); NEUT# 5.09 thou/uL (2.00-7.15); RED BLOOD COUNT 4.34 mill/uL (4.20-5.60); RED CELL DISTRI WIDTH 14.2 % (11.5-15.5)
[2018-05-08 06:00] LABS: ALBUMIN 3.3 g/dL (3.2-5.0); ALKALINE PHOSPHATASE 77 u/l (38-126); ANION GAP 13 (6-22 (CALC)); BILIRUBIN, TOTAL 0.3 mg/dL (0.0-1.4); BUN 10 mg/dL (8-23); BUN/CREATININE RATIO 15 (12-20 (CALC)); CARBON DIOXIDE 25 mmol/l (22-30); CHLORIDE 105 mmol/l (95-108); CREATININE 0.7 mg/dL (0.5-1.0); GFR > 60 ML/MIN (>=60 (CALC)); GFR FOR AFR.AMER. > 60 ML/MIN (>=60 (CALC)); POTASSIUM 3.5 mmol/l (3.5-5.1); SGOT/AST 14 u/l (9-36); SODIUM 139 mmol/l (137-146); TOTAL PROTEIN 6.3 g/dL (6.3-8.2)
--- NOTE | 2018-05-08 06:13 | NUR ---
PT MEDICATED ORDERS PROVIDE AND PT ASKED IF SHE NEEDED TO GET UP TO BSC AND CHANGE BREIF. SHE ASKED IF WE COULD LET HER SLEEP LONGER AND WAIT. NO S/S OF DITRESS NOTED. CALL LIGHT AT BEDSIDE.
--- NOTE | 2018-05-08 07:00 | NUR ---
PT REPORT RECIEVED FROM DANIELITO HERNANDEZ. PT SLEEPING IN BED. NO S/S OF DISTRESS. CALL LIGHT IN REACH. WILL CONTINUE TO MONITOR
--- NOTE | 2018-05-08 07:46 | NUR ---
AT BEDSIDE DISCUSSING POC.
[2018-05-08 08:05] VITALS: BP 143/61
--- NOTE | 2018-05-08 08:05 | NUR ---
PT ASSESSMENT COMPLETE. A/O X3. SPEECH IS CLEAR. RESP SHALLOW. PT DOES EXHIBIT SOB UPON EXERTION. WHEEZES ANTERIORLY, CLEAR POSTERIORLY. PT HAS A NONPRODUCTIVE COUGH. ENCOURAGED USE OF INCENTIVE SPIROMETER. O2 @3L IN PLACE. BOWEL SOUNDS ACTIVE X4. STRONG RADIAL AND PEDAL PULSES. #20 RW D5 1/2 NS @70. SITE APPEARS HEALTHY. PT HAS SOME LT SIDED WEAKNESS TO UPPER AND LOWER EXTREMITIES. ENCOURAGED TO AMBULATE WITH ASSISTANCE TO RECLINER AND BSC. SKIN INTACT. PLAN OF CARE DISCUSSED. SAFETY PRECAUTIONS IN PLACE. CALL LIGHT IN REACH. WILL CONTINUE TO MONITOR.
--- NOTE | 2018-05-08 09:11 | NUR ---
PT C/O SHARP LT HIP PAIN 7 OUT OF 10 ON PAIN SCALE. MEDICATED W/ ONE 325 MG PERCOCET TABLET. REPOSITIONED IN BED FOR COMFORT. CALL LIGHT IN REACH. WILL CONTINUE TO MONITOR.
--- NOTE | 2018-05-08 09:36 | NUR ---
PT STATES PAIN TO LT HIP IS STILL A 7 OUT OF 10. PT REQUESTING TO GET BACK IN BED. MANAGER SOLUTION ASSISTED PT TO BED FOR MORE COMFORT. REPOSITIONED AND PILLOWS ADJUSTED REQUESTED. CALL LIGHT IN REACH. WILL CONTINUE TO MONITOR.
--- NOTE | 2018-05-08 12:06 | NUR ---
PT STATES LT HIP PAIN IS A 6 OUT OF 10. ASSISTED PT TO RELAX IN BED. PILLOW POSITIONED UNDER LEFT HIP. EDUCATED PT OF PAIN SCALE AND MEDICATION ADMINISTRATION. PT DENIES ANY FURTHER NEEDS. CALL LIGHT IN REACH. WILL CONTINUE TO MONITOR
--- NOTE | 2018-05-08 16:00 | NUR ---
PT RESTING IN BED. NO S/S OF DISTRESS. IVF FLOWING FREELY. PT DENIES ANY NEEDS AT THIS TIME. SAFETY PRECAUTIONS IN PLACE. CALL LIGHT IN REACH WILL CONTINUE MONITOR.
[2018-05-08 16:20] VITALS: BP 114/61
[2018-05-08 19:00] VITALS: BP 145/76
--- NOTE | 2018-05-08 19:45 | NUR ---
BEDSIDE REPORT RECEIVED FROM HELENA SAENZ. PT SITTING UP IN BED ALERT AND ORIENTED; RT AT BEDSIDE TO ADMINISTER DUONEB. C/O LEFT HIP PAIN; PERCOCET GIVEN BY DAY SHIFT WITH GOOD EFFECT. RESPIRATIONS EVEN AND UNLABORED ON OXYGEN. PLAN OF CARE DISCUSSED. PT ENCOURAGED TO VERBALIZE CONCERNS. STATES UNDERSTANDING. SAFETY MEASURES IN PLACE. CALL LIGHT WITHIN REACH.
--- NOTE | 2018-05-09 | NUR ---
PT ASLEEP AT THIS TIME WITH NO SIGNS OF DISTRESS. RESPIRATIONS EVEN AND UNLABORED ON OXYGEN. IV FLUIDS INFUSING WITHOUT DIFFICULTY; IV SITE APPEARS HEALTHY. PT REMAINS SBA TO BSC. NO REQUESTS OR CONCERNS AT THIS TIME. SAFETY MEASURES IN PLACE. CALL LIGHT WITHIN REACH.
[2018-05-09 04:15] VITALS: BP 115/56
--- NOTE | 2018-05-09 04:29 | NUR ---
NO ACUTE CHANGES IN CONDITION THROUGHOUT THE NIGHT. SAFETY MEASURES IN PLACE. CALL LIGHT WITHIN REACH.
--- NOTE | 2018-05-09 07:15 | NUR ---
PT REPORT RECIEVED FROM DANIELITO VICK. PT SLEEPING AT THIS TIME. NO S/S OF DISTRESS. CALL LIGHT IN REACH. WILL CONTINUE TO MONITOR.
[2018-05-09 08:22] VITALS: BP 136/69
--- NOTE | 2018-05-09 08:22 | NUR ---
PT ASSESSMENT COMPLETE. PT A/O X3. SPEECH IS CLEAR. RESP SHALLOW. WHEEZES NOTED TO UPPER LOBES, CLEAR POSTERIORLY. ENCOURAGED AMBULATION AND USE OF INCENTIVE SPIROMETER. BOWEL SOUNDS ACTIVE X4. #20 RW D5 1/2 NS @70. SITE APPEARS HEALTHY. SKIN INTACT. BSC NEAR BED. PT DENIES ANY PAIN OR NEEDS AT THIS TIME. SAFETY PRECAUTIONS IN PLACE. CALL LIGHT IN REACH. WILL CONTINUE TO MONITOR.
--- NOTE | 2018-05-09 09:05 | NUR ---
Pt seen for therapy this am. She was in bed eating breakfast, she did not report any complaints. Pt moved supine to sit with bed rail and supervision, not intervention required, she ambulated 1 x 20' and 1x30' with RW and supervision, IV pole and 02 tank managed by therapist. Pt show good safety skill with sitting, making sure legs touched chair and reaching back with both hands. 02 stats with [address] were 89 to 90%, with mild SOB noted on 2nd walk with subsided quickly with rest. Pt brief was satuated and pt cleaned and changed into dry brief. Pt left in chair with call salazar/phone/tray in place.
--- NOTE | 2018-05-09 12:13 | NUR ---
PT C/O ACHING LT FOOT PAIN 9 OUT OF 10. MEDICATED W/ ONE 325 MG PERCOCET TABLET. ASSISTED PT TO BSC. DENIES ANY FURTHER NEEDS. CALL LIGHT IN REACH. WILL CONTINUE TO MONITOR.
--- NOTE | 2018-05-09 13:41 | NUR ---
PT STATES PAIN PILL HELPED AND PAIN TO LT FOOT HAS DECREASED TO A 4 OUT OF 10 ON PAIN SCALE. PT SITTING IN RECLINER DOING CROSSWORD PUZZLES. DENIES ANY FURTHER NEEDS. CALL LIGHT IN REACH. WILL CONTINUE TO MONITOR
--- NOTE | 2018-05-09 16:24 | NUR ---
PT IV REMOVED. CATHETER INTACT. NEW IV STARTED. #22 LFA. SITE APPEARS HEALTHY. WILL CONTINUE TO MONITOR.
[2018-05-09 17:30] VITALS: BP 130/83
--- NOTE | 2018-05-09 19:40 | NUR ---
BEDSIDE REPORT RECEIVED FROM HELENA SAENZ. PT RESTING IN BED SEMI FOWLERS; ALERT AND ORIENTED. IV SITE FOUND DISLODGED AND NEW SITE STARTED TO RIGHT HAND; PT TOLERATED WELL. C/O CHRONIC LEFT HIP AND FOOT PAIN THAT SHE REPORTS IS R/T HER STROKE. RESPIRATIONS EVEN AND UNLABORED ON OXYGEN AND LUNGS ARE CLEAR WITH DIMINISHED BASES. PLAN OF CARE REVIEWED. PT ENCOURAGED TO VERABLIZE CONCERNS. STATES UNDERSTANDING. SAFETY MEASURES IN PLACE. CALL LIGHT WITHIN REACH.
[2018-05-09 19:46] VITALS: BP 121/70
--- NOTE | 2018-05-09 22:19 | NUR ---
RT AT BEDSIDE FOR DUONEB.
--- NOTE | 2018-05-10 00:28 | NUR ---
PT ASLEEP AT THIS TIME WITH NO SIGNS OF DISTRESS. RESPIRATIONS EVEN AND UNLABORED ON OXYGEN. IV FLUIDS INFUSING WITHOUT DIFFICULTY; IV SITE APPEARS HEALTHY. PT REMAINS STAND BY ASSIST TO BSC. SAFETY MEASURES IN PLACE. CALL LIGHT WITHIN REACH.
--- NOTE | 2018-05-10 04:00 | NUR ---
PT ASLEEP AT THIS TIME WITH NO SIGN OF DISTRESS. RESPIRATION EVEN AND UNLABORED ON OXYGEN. NO ACUTE CHANGES IN CONDITION THROUGHOUT THE NIGHT. PT AWARE THAT WE STILL NEED STOOL SAMPLE. CALL LIGHT WITHIN REACH.
[2018-05-10 04:13] VITALS: BP 123/70
[2018-05-10 05:10] LABS: HEMATOCRIT 36.9 % (37.0-47.0); HEMOGLOBIN 12.1 g/dl (12.0-16.0); IMMATURE GRANULOCYTES 0.5 % (0.0-5.0); MEAN CELL VOLUME 90.7 fL CALC (80.0-100.0); MEAN CORPUSCULAR HGB 29.7 pG CALC (26.0-32.0); MEAN CORPUSCULAR HGB CONC 32.8 g/L CALC (32.0-36.0); NEUT# 11.18 thou/uL (2.00-7.15); RED BLOOD COUNT 4.07 mill/uL (4.20-5.60); RED CELL DISTRI WIDTH 14.3 % (11.5-15.5)
[2018-05-10 05:27] LABS: ALBUMIN 3.3 g/dL (3.2-5.0); ALKALINE PHOSPHATASE 67 u/l (38-126); ANION GAP 15 (6-22 (CALC)); BILIRUBIN, TOTAL 0.1 mg/dL (0.0-1.4); BUN 15 mg/dL (8-23); BUN/CREATININE RATIO 25 (12-20 (CALC)); CARBON DIOXIDE 22 mmol/l (22-30); CHLORIDE 107 mmol/l (95-108); CREATININE 0.6 mg/dL (0.5-1.0); GFR > 60 ML/MIN (>=60 (CALC)); GFR FOR AFR.AMER. > 60 ML/MIN (>=60 (CALC)); POTASSIUM 3.4 mmol/l (3.5-5.1); SGOT/AST 13 u/l (9-36); SODIUM 140 mmol/l (137-146); TOTAL PROTEIN 6.2 g/dL (6.3-8.2)
--- NOTE | 2018-05-10 07:20 | NUR ---
REPORT RECEIVED FROM DANIELITO GARCIA;PT APPEARS TO BE SLEEPING IN SUPINE POSITION;RESPIRATIONS EVEN AND UNLABORED ON HUM 02 @ 2L VIA NC;NO S/S OF DISTRESS NOTED;IV FLUIDS INFUSING TO RIGHT HAND WITH EASE;ALL SAFETY PRECAUTIONS REINFORCED WITH BED IN THE LOWEST POSITION AND CALL LIGHT IN REACH;WILL CONTINUE TO MONITOR
--- NOTE | 2018-05-10 08:10 | NUR ---
PT TRANSFERRED TO [facility] VIA WHEELCHAIR IN STABLE CONDITION ACCOMPANIED BY VIMAL SAMANIEGO
--- NOTE | 2018-05-10 08:25 | NUR ---
AT BEDSIDE DISCUSSING POC INCLUDING DISCHARGE PLAN.
[2018-05-10] MEDS ORDERED: MEDDOSEPAK PO (08:36)
[2018-05-10] MEDS ORDERED: Levaquin PO (08:36)
[2018-05-10 09:20] VITALS: BP 140/76
--- NOTE | 2018-05-10 09:20 | NUR ---
PT OOB RESTING IN RECLINER;RT AT BEDSIDE ADMINISTERING BREATHING TREATMENT;PT ALERT AND ORIENTED X4;VS OBTAINED AND ASSESSMENT COMPLETED;PT DENIES ANY CURRENT PAIN OR DISCOMFORTS,PAIN SCALE AND REPORTING RE-EDUCATED;RESPIRATIONS EVEN AND UNLABORED,SHALLOW ON HUM 02 @ 3L VIA NC;NON-PRODUCTIVE COUGH NOTED AT TIMES;I.S. AT BEDSIDE AND PT EDUCATED ON USE 10X PER HOUR;ABDOMEN DISTENDED/SOFT ON PALPATION AND ACTIVE IN ALL 4 QUADRANTS;STRONG PEDAL PULSES;SKIN INTACT;#22G TO RIGHT HAND INFUSING D5 1/2 NS @ 70ML/HR,SITE APPEARS HEALTHY;PT DENIES ANY CURRENT NEEDS AND IS ENCOURAGED TO CALL FOR ASSISTANCE IF NEEDED;FALL PRECAUTIONS IN PLACE WITH CALL LIGHT IN REACH;WILL CONTINUE TO MONITOR
[2018-05-10 09:23] VITALS: BP 140/76
--- NOTE | 2018-05-10 10:55 | NUR ---
PT OOB RESTING IN RECLINER;DISCHARGE PLAN DISCUSSED AT THIS TIME AND PT VERBALIZES UNDERSTANDING;PRESCRIPTIONS DISCUSSED IN DEPTH AND PT ENCOURAGED TO PICK THEM UP FROM THE PHARMACY ON THE WAY HOME.IV SITE REMOVED WITH CATHETER INTACT;PT DENIES ANY ADDITIONAL NEEDS AT THIS TIME;WHEELCHAIR TO BE PROVIDED FOR DISCHARGE;AWAITING DAUGHTER TO ARRIVE FOR TRANSPORTATION HOME.
--- NOTE | 2018-05-10 11:13 | NUR ---
Discharge instructions given. Patient verbalizes understanding of same. Discharged in stable condition via Wheelchair to Home with family. All belongings sent with pt. Wheelchair provided and daughter insists on transporting pt off the floor herself.
== END 2018-05-10 11:10 | disposition home or self-care (01) ==
LOC: MS2 15:44
PROVIDERS: ADMIT Internal Medicine Geriatric Medicine; ATTEND Internal Medicine Geriatric Medicine
DX: J18.9 Pneumonia, unspecified organism (principal); J44.0 Chronic obstructive pulmonary disease with (acute) lower respiratory infection; J44.1 Chronic obstructive pulmonary disease with (acute) exacerbation; E86.0 Dehydration; I10 Essential (primary) hypertension; I25.10 Atherosclerotic heart disease of native coronary artery without angina pectoris; E11.9 Type 2 diabetes mellitus without complications; E78.5 Hyperlipidemia, unspecified; K21.9 Gastro-esophageal reflux disease without esophagitis; K27.9 Peptic ulcer, site unspecified, unspecified as acute or chronic, without hemorrhage or perforation; I69.959 Hemiplegia and hemiparesis following unspecified cerebrovascular disease affecting unspecified side; R00.1 Bradycardia, unspecified; R19.7 Diarrhea, unspecified; R10.9 Unspecified abdominal pain; R42 Dizziness and giddiness

== ENCOUNTER 2018-05-30 12:52 | Emergency (ER) | payer MEDICARE ==
[~2018-05-30] VITALS: Ht 149.9 cm; Wt 73.0 kg
[~2018-05-30 12:52] MED LIST changes: +HYDROCODONE/ACE1 TAB PO; +MEDDOSEPAK PO; +METOPROL TAR25 M1 PO; +NARCAN4 MG/0.1 M
[2018-05-30 16:28] VITALS: BP 99/56
== END 2018-05-30 16:35 | disposition home or self-care (01) ==
LOC: ED 12:52
DX: S79.912A Unspecified injury of left hip, initial encounter (principal); J44.9 Chronic obstructive pulmonary disease, unspecified; K21.9 Gastro-esophageal reflux disease without esophagitis; F41.9 Anxiety disorder, unspecified; I25.10 Atherosclerotic heart disease of native coronary artery without angina pectoris; I10 Essential (primary) hypertension; E78.5 Hyperlipidemia, unspecified; F32.9 Major depressive disorder, single episode, unspecified; X50.1XXA Overexertion from prolonged static or awkward postures, initial encounter; Y93.E1 Activity, personal bathing and showering; Y92.002 Bathroom of unspecified non-institutional (private) residence as the place of occurrence of the external cause; Z96.642 Presence of left artificial hip joint; Z99.81 Dependence on supplemental oxygen; Z86.73 Personal history of transient ischemic attack (TIA), and cerebral infarction without residual deficits; Z95.5 Presence of coronary angioplasty implant and graft

== ENCOUNTER 2018-11-09 11:49 | Emergency (ER) | payer MEDICARE ==
[~2018-11-09] VITALS: Ht 149.9 cm; Wt 82.0 kg
[2018-11-09 12:52] LABS: HEMATOCRIT 40.9 % (37.0-47.0); HEMOGLOBIN 13.2 g/dl (12.0-16.0); IMMATURE GRANULOCYTES 0.9 % (0.0-5.0); MEAN CELL VOLUME 91.5 fL CALC (80.0-100.0); MEAN CORPUSCULAR HGB 29.5 pG CALC (26.0-32.0); MEAN CORPUSCULAR HGB CONC 32.3 g/L CALC (32.0-36.0); NEUT# 4.68 thou/uL (2.00-7.15); RED BLOOD COUNT 4.47 mill/uL (4.20-5.60); RED CELL DISTRI WIDTH 13.8 % (11.5-15.5)
[2018-11-09 13:23] LABS: ALBUMIN 3.8 g/dL (3.2-5.0); ALKALINE PHOSPHATASE 94 u/l (38-126); ANION GAP 13 (6-22 (CALC)); BILIRUBIN, TOTAL 0.3 mg/dL (0.0-1.4); BUN 12 mg/dL (8-23); BUN/CREATININE RATIO 18 (12-20 (CALC)); CARBON DIOXIDE 28 mmol/l (22-30); CHLORIDE 104 mmol/l (95-108); CREATININE 0.7 mg/dL (0.5-1.0); GFR > 60 ML/MIN (>=60 (CALC)); GFR FOR AFR.AMER. > 60 ML/MIN (>=60 (CALC)); POTASSIUM 3.5 mmol/l (3.5-5.1); SGOT/AST 18 u/l (9-36); SODIUM 141 mmol/l (137-146); TOTAL PROTEIN 6.7 g/dL (6.3-8.2)
[2018-11-09] MEDS ORDERED: MEDDOSEPAK PO (14:09)
[2018-11-09 14:31] VITALS: BP 98/60
== END 2018-11-09 14:44 | disposition home or self-care (01) ==
LOC: ED 11:49
PROVIDERS: Emergency Medicine
DX: T60.91XA Toxic effect of unspecified pesticide, accidental (unintentional), initial encounter (principal); J44.1 Chronic obstructive pulmonary disease with (acute) exacerbation; I10 Essential (primary) hypertension; Z86.73 Personal history of transient ischemic attack (TIA), and cerebral infarction without residual deficits; Z99.81 Dependence on supplemental oxygen

== ENCOUNTER 2018-12-11 12:23 | Observation (INO) | payer MEDICARE ==
[~2018-12-11] VITALS: Ht 149.9 cm; Wt 63.5 kg
--- NOTE | 2018-12-11 12:41 | NUR ---
PT IS DIRECT ADMIT. CAME VIA WHEELCHAIR. HARDWOOD FLOORING SPECIALIST IN ROOM TO OBTAIN VS AND WT. CALL LIGHT IN REACH.
[2018-12-11 12:50] VITALS: BP 119/58
--- NOTE | 2018-12-11 13:35 | NUR ---
ASSESSMENT DONE. TELE IN PLACE. PT IS A&O X3. PT DENIES PAIN AT THIS TIME. PT DENIES NEEDS AT THIS TIME. PT HAS HER OWN BRIEF FROM HOME. CALL LIGHT IN REACH.
[2018-12-11 14:37] LABS: BUN 19 mg/dL (8-23); BUN/CREATININE RATIO 27 (12-20 (CALC)); CREATININE 0.7 mg/dL (0.5-1.0); GFR > 60 ML/MIN (>=60 (CALC)); GFR FOR AFR.AMER. > 60 ML/MIN (>=60 (CALC))
[2018-12-11 14:38] LABS: ALBUMIN 3.7 g/dL (3.2-5.0); ALKALINE PHOSPHATASE 94 u/l (38-126); ANION GAP 11 (6-22 (CALC)); BILIRUBIN, TOTAL 0.3 mg/dL (0.0-1.4); CARBON DIOXIDE 30 mmol/l (22-30); CHLORIDE 102 mmol/l (95-108); POTASSIUM 3.6 mmol/l (3.5-5.1); SGOT/AST 12 u/l (9-36); SODIUM 139 mmol/l (137-146); TOTAL PROTEIN 6.6 g/dL (6.3-8.2)
[2018-12-11 15:14] LABS: HEMOGLOBIN 12.2 g/dl (12.0-16.0); RED BLOOD COUNT 4.12 mill/uL (4.20-5.60)
[2018-12-11 15:15] LABS: HEMATOCRIT 37.8 % (37.0-47.0); IMMATURE GRANULOCYTES 1.5 % (0.0-5.0); MEAN CELL VOLUME 91.7 fL CALC (80.0-100.0); MEAN CORPUSCULAR HGB 29.6 pG CALC (26.0-32.0); MEAN CORPUSCULAR HGB CONC 32.3 g/L CALC (32.0-36.0); NEUT# 7.9 thou/uL (2.00-7.15); RED CELL DISTRI WIDTH 13.9 % (11.5-15.5)
[2018-12-11 16:16] VITALS: BP 133/71
--- NOTE | 2018-12-11 17:45 | NUR ---
CALIXTO APPLIED AND PT TOLERATED WELL. SETUP PT FOR DINNER. CALL LIGHT IN REACH.
[2018-12-11 18:35] LABS: CHOLESTEROL HDL RATIO 2.4 (<4.4 (CALC))
--- NOTE | 2018-12-11 19:10 | NUR ---
REPORT RECEIVED FROM DANIELITO RABAGO. PT RESTING IN BED, ALERT AND ORIENTED. PT DENIES ANY PAIN OR DISCOMFORT AT THIS TIME. CALIXTO DRAINING TO GRAVITY. TELE IN PLACE. WILL CONTINUE TO MONITOR.
[2018-12-11 19:29] LABS: URINE BILIRUBIN - DIPSTICK NEGATIVE (NEGATIVE); URINE BLOOD DIPSTICK TRACE-INTACT (NEGATIVE); URINE COLOR YELLOW; URINE GLUCOSE - DIPSTICK NEGATIVE (NEGATIVE); URINE KETONE NEGATIVE (NEGATIVE); URINE LEUK ESTERASE NEGATIVE (Negative); URINE NITRITE - DIPSTICK NEGATIVE (Negative); URINE PROTEIN - DIPSTICK NEGATIVE (NEG-TRACE); URINE SPECIFIC GRAVITY 1.015; URINE UROBILINOGEN - DIPSTICK 0.2 E.U./dL (0.2)
[2018-12-11 19:30] VITALS: BP 107/54
[2018-12-11 19:34] LABS: URINE CLARITY CLEAR
--- NOTE | 2018-12-11 20:50 | NUR ---
PT RESTING IN BED ALERT AND ORIENTED. PT WET FROM CALIXTO LEAKING. BEDDING AND GOWN CHANGED. NICHOLAS CARE PROVIDED. CALIXTO PLACEMENT ASSESSED. PT REPORT HAVING BLADDER SPASMS. INFORMED PT WRITTER WOULD CALL DR DEGROOT AND LET HIM KNOW. WILL CONTINUE TO MONITOR.
--- NOTE | 2018-12-11 21:35 | NUR ---
CALLED DR DEGROOT TO LET HIM KNOW PT STATES SHE IS HAVING BLADDER SPASMS, NEW ORDERS PROVIDED FOR BENTYL 10MG 1X DOSE NOW QID PRN FOR BLADDER SPASMS.
--- NOTE | 2018-12-12 | NUR ---
PT RESTING IN BED WITH EYES CLOSED, NO SIGNS OR SYMPTOMS OF DISTRESS AT THIS TIME, CALIXTO DRAINING TO GRAVITY, TELE MONITOR IN PLACE, WILL CONTINUE TO MONITOR.
--- NOTE | 2018-12-12 03:52 | NUR ---
PT RESTING IN BED WITH EYES CLOSED. NO S/S OF DISTRESS AT THIS TIME. CALIXTO DRAINING TO GRAVITY. TELE MONITOR IN PLACE. WILL CONTINUE TO MONITOR.
[2018-12-12 04:00] VITALS: BP 133/67
[2018-12-12 05:21] LABS: HEMATOCRIT 39.1 % (37.0-47.0); HEMOGLOBIN 12.8 g/dl (12.0-16.0); IMMATURE GRANULOCYTES 0.7 % (0.0-5.0); MEAN CELL VOLUME 90.3 fL CALC (80.0-100.0); MEAN CORPUSCULAR HGB 29.6 pG CALC (26.0-32.0); MEAN CORPUSCULAR HGB CONC 32.7 g/L CALC (32.0-36.0); NEUT# 6.18 thou/uL (2.00-7.15); RED BLOOD COUNT 4.33 mill/uL (4.20-5.60); RED CELL DISTRI WIDTH 13.4 % (11.5-15.5)
[2018-12-12 05:51] LABS: ALBUMIN 3.5 g/dL (3.2-5.0); ALKALINE PHOSPHATASE 93 u/l (38-126); ANION GAP 11 (6-22 (CALC)); BILIRUBIN, TOTAL 0.2 mg/dL (0.0-1.4); BUN 17 mg/dL (8-23); BUN/CREATININE RATIO 28 (12-20 (CALC)); CARBON DIOXIDE 30 mmol/l (22-30); CHLORIDE 102 mmol/l (95-108); CREATININE 0.6 mg/dL (0.5-1.0); GFR > 60 ML/MIN (>=60 (CALC)); GFR FOR AFR.AMER. > 60 ML/MIN (>=60 (CALC)); POTASSIUM 3.7 mmol/l (3.5-5.1); SGOT/AST 11 u/l (9-36); SODIUM 139 mmol/l (137-146); TOTAL PROTEIN 6.2 g/dL (6.3-8.2)
[2018-12-12 07:16] VITALS: BP 119/63
--- NOTE | 2018-12-12 08:15 | NUR ---
PT IS SITTING IN RECLINER. DR. DEGROOT IN ROOM TO ASSESS PT. ASSESSMENT DONE. PT IS A&O X3. PT DENIES PAIN AT THIS TIME. DURGA IS PATENT WITH YELLOW URINE. O2 AT 3L VIA NC. #22 RAC THAT APPEARS HEALTHY. CALL LIGHT IN REACH.
[2018-12-12 10:55] VITALS: BP 120/68
--- NOTE | 2018-12-12 11:14 | NUR ---
MEDICATED PT FOR PAIN IN LEFT LEG 03/03 AND BENTYL SEE EMAR. PT DENIES ANY OTHER NEEDS AT THIS TIME. CALL LIGHT IN REACH.
[2018-12-12 15:17] VITALS: BP 123/72
--- NOTE | 2018-12-12 15:30 | NUR ---
PT IS RESTING IN BED WITH NO S/S OF DISTRESS NOTED. PT DENIES ANY NEEDS AT THIS TIME. CALL LIGHT IN REACH.
[2018-12-12 19:15] VITALS: BP 95/55
--- NOTE | 2018-12-12 20:31 | NUR ---
DR. DEGROOT CALLED TO NOTIFY OF LOW BP AND HR. HOLD CARDIAC MEDS-LISINOPRIL, COREG AND LASIX TONIGHT. PATIENT NOTIFIED OF NEW ORDERS. RESTING IN BED WITH O2 IN PLACE. WILL CONT TO MONITOR.
[2018-12-12 23:40] VITALS: BP 118/58
--- NOTE | 2018-12-13 | NUR ---
PATIENT APPEARS SLEEPING AT THIS TIME WITH O2 VIA NASAL CANNULA IN PLACE. RESP ARE EVEN AND UNLABORED. CALIXTO PATENT AND DRAINING [place] URINE. IVF PATENT AND INFUSING AT 75CC/HR. SITE REMAINS HEALTHY AT THIS TIME. CALL LIGHT IN REACH. WILL CONT TO MONITOR.
--- NOTE | 2018-12-13 04:09 | NUR ---
PATIENT RESTING IN BED-POSITIONED ON HER SIDE. O2 VIA NASAL CANNULA IN PLACE. CALIXTO CATH PATENT AND DRAINING [place] URINE. IVF PATENT AND INFUSING AT 75CC/HR. CALL LIGHT IN REACH. WILL CONT TO MONITOR.
[2018-12-13 04:33] VITALS: BP 112/64
[2018-12-13 04:58] LABS: HEMATOCRIT 37.7 % (37.0-47.0); HEMOGLOBIN 12.3 g/dl (12.0-16.0); IMMATURE GRANULOCYTES 0.6 % (0.0-5.0); MEAN CELL VOLUME 90.8 fL CALC (80.0-100.0); MEAN CORPUSCULAR HGB 29.6 pG CALC (26.0-32.0); MEAN CORPUSCULAR HGB CONC 32.6 g/L CALC (32.0-36.0); NEUT# 13.47 thou/uL (2.00-7.15); RED BLOOD COUNT 4.15 mill/uL (4.20-5.60); RED CELL DISTRI WIDTH 13.8 % (11.5-15.5)
[2018-12-13 05:15] LABS: ALBUMIN 3.3 g/dL (3.2-5.0); ALKALINE PHOSPHATASE 75 u/l (38-126); ANION GAP 11 (6-22 (CALC)); BUN 20 mg/dL (8-23); BUN/CREATININE RATIO 33 (12-20 (CALC)); CARBON DIOXIDE 29 mmol/l (22-30); CHLORIDE 104 mmol/l (95-108); CREATININE 0.6 mg/dL (0.5-1.0); GFR > 60 ML/MIN (>=60 (CALC)); GFR FOR AFR.AMER. > 60 ML/MIN (>=60 (CALC)); POTASSIUM 3.6 mmol/l (3.5-5.1); SGOT/AST 9 u/l (9-36); SODIUM 141 mmol/l (137-146); TOTAL PROTEIN 5.9 g/dL (6.3-8.2)
[2018-12-13 07:16] VITALS: BP 116/67
--- NOTE | 2018-12-13 08:30 | NUR ---
DR. DEGROOT AT BEDSIDE TO ASSESS PT. NOTIFIED RE: P-55 AND BP 116/67. MD STATED TO GIVE BP MEDICATIONS. ASSESSMENT DONE. PT IS A&O X3. PT DENIES PAIN AT THIS TIME. TELE IN PLACE. LUNGS SOUND WITH WHEEZES. CALIXTO IS PATENT WITH YELLOW URINE. SAFETY PRECAUTIONS REINFORCED AND CALL LIGHT IN REACH.
[2018-12-13 11:19] VITALS: BP 108/51
--- NOTE | 2018-12-13 12:15 | NUR ---
PT IS SITTING IN RECLINER. PT STATED PAIN IN LEFT LEG 03/03. MEDICATED PT WITH LORTAB SEE EMAR. ASSISTED PT BACK TO BED. PT DENIES ANY OTHER NEEDS AT THIS TIME. CALL LIGHT IN REACH.
--- NOTE | 2018-12-13 15:08 | NUR ---
PT RESTING BED BUT STATED PAIN IN LEFT FOOT. PT AWARE UNABLE TO GAVE PAIN MEDICATION DUE TO IS NOT DUE YET. PT DENIES ANY OTHER NEEDS AT THIS TIME. CALL LIGHT IN REACH.
[2018-12-13 16:20] VITALS: BP 112/57
[2018-12-13 19:02] VITALS: BP 117/72
--- NOTE | 2018-12-13 19:20 | NUR ---
REPORT RECIEVED FROM DAY SHIFT NURSE. WENT TO PT ROOM. PT IS LAYING IN BED ASLEEP FACING AWAY FROM DOOR.
--- NOTE | 2018-12-13 19:25 | NUR ---
PT RANG CALL BUENROSTRO. WENT IN AND PT STATED "I NEED HELP TO GO TO THE BATHROOM" GOT COMMODE AND PLACED NEXT TO BED. ASSISTED PT TO COMMODE WITH MINIMAL 1X ASSIST NEEDED. LEFT PT WITH CALL LIGHT WITHIN REACH.
[2018-12-14] VITALS (7 sets, daily range): BP systolic 108–125; BP diastolic 58–70
--- NOTE | 2018-12-14 01:33 | NUR ---
PT MEDICATED FOR PAIN C/O OF 8 IN LEFT FOOT. REPORTS CHRONIC. DENIES ANY OTHER NEEDS AT THIS TIME. CALL LIGHT AT SIDE.
--- NOTE | 2018-12-14 05:00 | NUR ---
PT APPEARS TO BE SLEEPING AT THIS TIME. NO S/O DISTRESS NOTED. CALIXTO APPEARS PATENT W/CLEAR YELLOW URINE DRAINING. CALL LIGHT IS AT BEDSIDE.
[2018-12-14 05:17] LABS: HEMATOCRIT 37.1 % (37.0-47.0); HEMOGLOBIN 12.1 g/dl (12.0-16.0); IMMATURE GRANULOCYTES 0.6 % (0.0-5.0); MEAN CELL VOLUME 90.7 fL CALC (80.0-100.0); MEAN CORPUSCULAR HGB 29.6 pG CALC (26.0-32.0); MEAN CORPUSCULAR HGB CONC 32.6 g/L CALC (32.0-36.0); NEUT# 11.57 thou/uL (2.00-7.15); RED BLOOD COUNT 4.09 mill/uL (4.20-5.60)
[2018-12-14 05:20] LABS: ALBUMIN 3.5 g/dL (3.2-5.0); ALKALINE PHOSPHATASE 70 u/l (38-126); ANION GAP 12 (6-22 (CALC)); BUN 24 mg/dL (8-23); BUN/CREATININE RATIO 39 (12-20 (CALC)); CARBON DIOXIDE 30 mmol/l (22-30); CHLORIDE 102 mmol/l (95-108); CREATININE 0.6 mg/dL (0.5-1.0); GFR > 60 ML/MIN (>=60 (CALC)); GFR FOR AFR.AMER. > 60 ML/MIN (>=60 (CALC)); POTASSIUM 3.9 mmol/l (3.5-5.1); SGOT/AST 10 u/l (9-36); SODIUM 140 mmol/l (137-146); TOTAL PROTEIN 6.1 g/dL (6.3-8.2)
[2018-12-14 05:23] LABS: BILIRUBIN, TOTAL 0.2 mg/dL (0.0-1.4)
--- NOTE | 2018-12-14 08:14 | NUR ---
REPORT RECEIVED FROM DANIELITO HERNANDEZ. PT SITTING UPRIGHT IN BED. REPORTS PAIN TO LEFT LEG, MILD. REPORTING OF CONCERNS ENCOURAGED. FALL PRECAUTIONS REINFORCED. CALL LIGHT REVIEWED AND IN REACH. PLAN OF CARE DISCUSSED. PT STATES UNDERSTANDING.
--- NOTE | 2018-12-14 09:06 | NUR ---
DR. DEGROOT IN TO SEE PT. PLAN OF CARE DISCUSSED. CPT AFTER NEBS ORDERED.
--- NOTE | 2018-12-14 12:50 | NUR ---
CALIXTO CATHETER D/C'D PER DR. DEGROOT. WILL CONTINUE TO MONITOR.
--- NOTE | 2018-12-14 16:00 | NUR ---
PT SUPINE, SLEEPING. CALL LIGHT WITHIN REACH.
--- NOTE | 2018-12-14 17:37 | NUR ---
14:30 CPT COMPLETED BY RT LYNNE
--- NOTE | 2018-12-14 19:40 | NUR ---
PT ASSESSED, NO S/O DISTRESS NOTED. LUNG SOUNDS ARE WHEEZING THROUGHOUT, NO NOTED SOB AT THIS TIME. POC DISCUSSED W/PT AND PT REMINDED OF SPUTUM SAMPLE NEEDED. SHE REPORTS NOT COUGHING UP ANYTHING. WILL CONTINUE TO MONITOR FOR NEEDS. CALL LIGHT AT SIDE.
--- NOTE | 2018-12-14 21:33 | NUR ---
PT MEDICATED AT THIS TIME. C/O PAIN 8/ IN LEFT FOOT/REPORTED CHRONIC PAIN.
[2018-12-15] VITALS (7 sets, daily range): BP systolic 100–129; BP diastolic 60–71
[2018-12-15 05:06] LABS: HEMATOCRIT 41.5 % (37.0-47.0); HEMOGLOBIN 13.5 g/dl (12.0-16.0); IMMATURE GRANULOCYTES 1.1 % (0.0-5.0); MEAN CORPUSCULAR HGB 29.6 pG CALC (26.0-32.0); MEAN CORPUSCULAR HGB CONC 32.5 g/L CALC (32.0-36.0); NEUT# 9.58 thou/uL (2.00-7.15); RED BLOOD COUNT 4.56 mill/uL (4.20-5.60); RED CELL DISTRI WIDTH 13.7 % (11.5-15.5)
[2018-12-15 05:15] LABS: ANION GAP 15 (6-22 (CALC)); BUN 25 mg/dL (8-23); BUN/CREATININE RATIO 42 (12-20 (CALC)); CARBON DIOXIDE 27 mmol/l (22-30); CHLORIDE 102 mmol/l (95-108); CREATININE 0.6 mg/dL (0.5-1.0); GFR > 60 ML/MIN (>=60 (CALC)); GFR FOR AFR.AMER. > 60 ML/MIN (>=60 (CALC)); SODIUM 139 mmol/l (137-146)
--- NOTE | 2018-12-15 07:00 | NUR ---
SHIFT CHANGE REPORT, PT AWAKE ALERT AND ORIENTED SITTING UP IN RECLINER, C/O PAIN TO LEFT FOOT, TELE MONITOR IN PLACE, IVF INFUSING, WILL CONTINUE TO MONITOR.
--- NOTE | 2018-12-15 12:00 | NUR ---
ATE MEAL AND RESTING IN BED, DR DEGROOT WROTE NEW ORDERS WHICH HAVE BEEN EXECUTED, ALL NEEDS ADDRESSED.
--- NOTE | 2018-12-15 16:00 | NUR ---
RESTING IN BED, NO SIGN DISCOMFORT.
[2018-12-16] VITALS (8 sets, daily range): BP systolic 100–142; BP diastolic 55–79
[2018-12-16 04:09] LABS: MEAN CELL VOLUME 91.5 fL CALC (80.0-100.0); MEAN CORPUSCULAR HGB 29.7 pG CALC (26.0-32.0); MEAN CORPUSCULAR HGB CONC 32.5 g/L CALC (32.0-36.0); NEUT# 6.52 thou/uL (2.00-7.15); RED BLOOD COUNT 4.37 mill/uL (4.20-5.60); RED CELL DISTRI WIDTH 13.8 % (11.5-15.5)
--- NOTE | 2018-12-16 04:17 | NUR ---
PT APPEARS TO HAVE RELIEF FROM PAIN AT THIS TIME AND IS SLEEING SOUNDLY.
--- NOTE | 2018-12-16 04:18 | NUR ---
PT UP TO BSC AND PROVIDED SPONGE BATH, BEDDING WAS SOAKED OF URINE/CHANGED. IV FLUIDS REPLENISHED AT THIS TIME PT LOCX3
[2018-12-16 04:28] LABS: ANION GAP 10 (6-22 (CALC)); BUN 23 mg/dL (8-23); BUN/CREATININE RATIO 35 (12-20 (CALC)); CARBON DIOXIDE 30 mmol/l (22-30); CHLORIDE 102 mmol/l (95-108); CREATININE 0.7 mg/dL (0.5-1.0); GFR > 60 ML/MIN (>=60 (CALC)); GFR FOR AFR.AMER. > 60 ML/MIN (>=60 (CALC)); POTASSIUM 3.8 mmol/l (3.5-5.1); SODIUM 139 mmol/l (137-146)
--- NOTE | 2018-12-16 08:09 | NUR ---
ASSESSMENT DONE. PT IS A&O X3. PT IS SITTING IN THE SIDE OF THE BED. PT STATED PAIN IN LEFT LEG 01/31. MEDICATED PT WITH LORTAB SEE EMAR. IVF INFUSING WELL. TELE IN PLACE. SAFETY PRECAUTIONS REINFORCED AND CALL LIGHT IN REACH.
--- NOTE | 2018-12-16 12:05 | NUR ---
PT IS EATING HER LUNCH WITH NO S/S OF DISTRESS NOTED. PT DENIES NEEDS AT THIS TIME. CALL LIGHT IN REACH.
--- NOTE | 2018-12-16 15:24 | NUR ---
PT IS SITTING IN THE CHAIR WITH NO S/S OF DISTRESS. PT DENIES NEEDS AT THIS TIME. CALL LIGHT IN REACH.
--- NOTE | 2018-12-16 20:00 | NUR ---
PATIENT SITTING UP IN RECLINER AT THIS TIME WITH O2 VIA NASAL CANNULA AT 3LPM. TELE MONITOR IN PLACE. PATIENT IS AWAke alert and orientedx3. PATIENT CONT TO C/O LEFT FOOT PAIN BUT TOO EARLY TO BE MEDICATED AT THIS TIME. IVF D51/2NS PATENT AND INFUSING VIA RIGHT AC SITE. SITE IS OUTDATED BUT PATIENT IS REFUSING TO HAVE SITE AT THIS TIME BECAUSE SHE THINKS THAT SHE IS GOING HOME IN MORNING. EXPLAINED TO PATIENT THAT IT IS DUE TO BE OUTDATED AND PATIENT STATES THAT WE WILL SEE IN THE MORNING. SITE APPEARS HEALTHY AT THIS TIME. SAFETY PRECAUTIONS REINFORCED. CALL LIGHT IN REACH. WILL CONT TO MONITOR.
--- NOTE | 2018-12-16 21:30 | NUR ---
PATIENT RESTING IN BED WITH IVF PATENT AND INFUSING AT 80CC/HR. SITE IN NEED OF BEING CHANGED BECAUSE IT IS OUTDATED-PATIENT STATES THAT SHE WANTS TO WAIT BECAUSE SHE MAY BE GOING HOME IN THE MORNING. PM MEDS-LASIX, COREG AND LISINOPRIL HELD-HR-55, BP-106/55. DR. DEGROOT CALLED AND LEFT MESSAGE REGUARDING HOLDING MEDS. CALL LIGHT IN REACH. WILL CONT TO MONITOR.
--- NOTE | 2018-12-17 03:46 | NUR ---
PATIENT APPEARS SLEEPING AT THIS TIME WITH O2 VIA NASAL CANNULA INPLACE. IVF PATENT AND INFUSING AT 80CC/HR. TELE MONITOR IN PLACE. CALL LIGHT IN REACH. WILL CONT TO MONITOR.
[2018-12-17 04:22] VITALS: BP 93/54
[2018-12-17 05:24] LABS: HEMATOCRIT 38.6 % (37.0-47.0); HEMOGLOBIN 12.4 g/dl (12.0-16.0); IMMATURE GRANULOCYTES 0.9 % (0.0-5.0); MEAN CELL VOLUME 92.1 fL CALC (80.0-100.0); MEAN CORPUSCULAR HGB 29.6 pG CALC (26.0-32.0); MEAN CORPUSCULAR HGB CONC 32.1 g/L CALC (32.0-36.0); NEUT# 7.02 thou/uL (2.00-7.15); RED BLOOD COUNT 4.19 mill/uL (4.20-5.60)
[2018-12-17 05:36] LABS: ANION GAP 10 (6-22 (CALC)); BUN 21 mg/dL (8-23); BUN/CREATININE RATIO 33 (12-20 (CALC)); CARBON DIOXIDE 30 mmol/l (22-30); CHLORIDE 102 mmol/l (95-108); CREATININE 0.6 mg/dL (0.5-1.0); GFR > 60 ML/MIN (>=60 (CALC)); GFR FOR AFR.AMER. > 60 ML/MIN (>=60 (CALC)); POTASSIUM 3.9 mmol/l (3.5-5.1); SODIUM 138 mmol/l (137-146)
[2018-12-17 08:08] VITALS: BP 109/67
--- NOTE | 2018-12-17 08:30 | NUR ---
ASSESSMENT DONE. PT IS SITTING IN THE SIDE OF THE BED. PT IS A&O X3. PT STATED PAIN IN LEFT LEG 01/31 BUT DENIES PAIN MEDICATION AT THIS TIME. TELE IN PLACE. IVF INFUSING WELL. SAFETY PRECAUTIONS REINFORCED AND CALL LIGHT IN REACH.
[2018-12-17 08:46] VITALS: BP 109/67
[2018-12-17] MEDS ORDERED: LEVAQUIN750 MG PO (09:34)
--- NOTE | 2018-12-17 12:42 | NUR ---
Discharge instructions given. Patient verbalizes understanding of same. Discharged in stable condition via Wheelchair to Home with family. All belongings sent with pt.
== END 2018-12-17 12:42 | disposition home or self-care (01) ==
LOC: MS2 12:23
PROVIDERS: ADMIT Internal Medicine Geriatric Medicine; ATTEND Internal Medicine Geriatric Medicine
PROC: 0T9B70Z Drainage of Bladder with Drainage Device, Via Natural or Artificial Opening (ICD-10-PCS; principal; 2018-12-11)
DX: J44.1 Chronic obstructive pulmonary disease with (acute) exacerbation (principal); J18.9 Pneumonia, unspecified organism; J44.0 Chronic obstructive pulmonary disease with (acute) lower respiratory infection; E86.0 Dehydration; I10 Essential (primary) hypertension; I25.110 Atherosclerotic heart disease of native coronary artery with unstable angina pectoris; E78.5 Hyperlipidemia, unspecified; E03.9 Hypothyroidism, unspecified; K21.9 Gastro-esophageal reflux disease without esophagitis; K27.9 Peptic ulcer, site unspecified, unspecified as acute or chronic, without hemorrhage or perforation; F41.1 Generalized anxiety disorder; G89.29 Other chronic pain; I69.90 Unspecified sequelae of unspecified cerebrovascular disease; R06.02 Shortness of breath

== ENCOUNTER 2021-01-03 21:21 | Observation (INO) | payer MEDICARE, MEDICAID ==
[~2021-01-03] VITALS: Ht 149.9 cm; Wt 61.0 kg
[~2021-01-03 21:21] MED LIST changes: +LEVAQUIN750 MG PO
--- NOTE | 2021-01-03 21:21 | NUR ---
PATIENT IMMEDIATELY TO TREATMENT ROOM 11. O2 VIA NC IN PLACE PATIENT WEARS O2 AT HOME 2-3 LITERS NASAL CANNULA. APPLIED HERE WELL.
[2021-01-03 21:48] LABS: GFR > 60 ML/MIN (>=60 (CALC)); GFR FOR AFR.AMER. > 60 ML/MIN (>=60 (CALC))
[2021-01-03 21:49] LABS: HEMATOCRIT 40.7 % (37.0-47.0); HEMOGLOBIN 13.1 g/dl (12.0-16.0); IMMATURE GRANULOCYTES 0.3 % (0.0-5.0); MEAN CELL VOLUME 96.7 fL CALC (80.0-100.0); MEAN CORPUSCULAR HGB 31.1 pG CALC (26.0-32.0); MEAN CORPUSCULAR HGB CONC 32.2 g/dL CAL (32.0-36.0); NEUT# 4.02 thou/uL (2.00-7.15); RED BLOOD COUNT 4.21 mill/uL (4.20-5.60); RED CELL DISTRI WIDTH 13.3 % (11.5-15.5)
[2021-01-03 22:03] LABS: ALBUMIN 3.9 g/dL (3.2-5.0); ALKALINE PHOSPHATASE 77 u/l (38-126); ANION GAP 8 (6-22 (CALC)); CARBON DIOXIDE 31 mmol/l (22-30); CHLORIDE 99 mmol/l (95-108); CREATININE 0.7 mg/dL (0.5-1.0); GFR > 60 ML/MIN (>=60 (CALC)); GFR FOR AFR.AMER. > 60 ML/MIN (>=60 (CALC)); POTASSIUM 3.6 mmol/l (3.5-5.1); SGOT/AST 16 u/l (9-36); SODIUM 135 mmol/l (137-146)
[2021-01-03 22:05] LABS: BILIRUBIN, TOTAL 0.3 mg/dL (0.0-1.4); BUN 17 mg/dL (8-23); BUN/CREATININE RATIO 24 (12-20 (CALC))
--- NOTE | 2021-01-03 22:20 | NUR ---
PATIENT RESTING, EYES CLOSED, NO DISTRESS NOTED. VSS
[2021-01-03] MEDS ORDERED: LIPITOR40 M1 PO (23:37)
[2021-01-03] MEDS ORDERED: HYDROCO/APAP1 TA9 PO (23:42)
--- NOTE | 2021-01-03 23:53 | NUR ---
REPORT TO DANIELITO GOMES
--- NOTE | 2021-01-04 00:02 | NUR ---
NO CHANGE IN PT STATUS. SEE STROKE PACKET.
--- NOTE | 2021-01-04 00:52 | NUR ---
PATIENT ASSISTED TO BSC, VOIDS ABOUT 100 ML, YELLOW/CLEAR. NOW LAYS IN SEMI BUCK'S, REMAINS ON 3 L/MIN NC. DOES BECOME SOB WITH EXERTION. ABLE TO PERFORM PURSED LIP BREATHING. CALL LIGHT WITHIN REACH.
--- NOTE | 2021-01-04 01:00 | NUR ---
PT RESTING. AROUSES EASILY. DOMENICA. ANTUNEZ. GRASP = AND STRONG. TONGUE MIDLINE.
--- NOTE | 2021-01-04 02:00 | NUR ---
PT RESTING. VSS. AROUSES EASILY. WITHOUT CHANGE IN NEURO STATUS. ADVISED OF WAIT TIME.
--- NOTE | 2021-01-04 03:02 | NUR ---
PT RESTING. AWAITING BED. NO CHANGE
--- NOTE | 2021-01-04 04:01 | NUR ---
PT SLEEPING. AROUSES EASILY. NO CHANGE IN ASSESSMENT. NO DIZZINESS.
--- NOTE | 2021-01-04 05:04 | NUR ---
REPORT TO SERGE/MED-SURG.
[2021-01-04 06:00] VITALS: BP 153/76
--- NOTE | 2021-01-04 06:00 | NUR ---
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 NO CHANGE.
--- NOTE | 2021-01-04 06:00 | NUR ---
PT RECEIVED FROM ED TO ROOM 273. ARRIVES VIA STRETCHER ACCOMPANIED BY HUMBERTO ESTEVES. PT AMBULATORY TO BED. GAIT UNSTEADY. PT DENIES PAIN AT THIS TIME. ORIENTED TO UNIT, ROOM, CALL BUENROSTRO, LIGHTS, TV. ICE WATER PROVIDED. CALL BUENROSTRO WITHIN REACH. AGREES TO CALL PRN.
[2021-01-04 07:30] VITALS: BP 135/65
--- NOTE | 2021-01-04 07:30 | NUR ---
PATIENT RESTING IN BED AT THIS TIME. PATIENT IS ALERT AND ORIENTED X 3. PATIENT DENIES ANY PAIN AT THIS TIME AND SPEECH IS CLEAR. NERUO CHECKS DONE AND ARE NEGATIVE AT THIS TIME. PATIENT DOES PRESENT WITH LLE LEG DRIFT FROM PREVIOUS STROKE. LUNG FARR ARE DIMINISHED. PATIENT IS INCONTINENT OF URINE AT THIS TIME AND WAS CHANGED AT THIS TIME. PUPILS ARE EQUAL AND REACTIVE. PATIENT DENIES ANY HEADACHE AND OR PAIN ANYWHERE AT THIS TIME. SIDERAILS ARE UP X 2 CALL LIGHT IS WITHIN REACH. TELE MONITOR ON AND BEING MONITORED BY ED.
[2021-01-04 10:50] VITALS: BP 123/64
--- NOTE | 2021-01-04 12:00 | NUR ---
PATIENT RESTING IN BED ALERT AND ORIENTED X 3 PATIENT RADHA ANY HEADACHE OR PAIN. NEURO CHECKS REMAIN NEGATIVE AT THIS TIME. SIDERAILS ARE UP X 2 CALL LIGHT AND PERSONAL ITEMS WITHIN REACH.
[2021-01-04 14:53] VITALS: BP 134/71
--- NOTE | 2021-01-04 15:48 | NUR ---
PATIENT STATES SHE HAS "CHRONIC FEET PAIN" AND IT IS A 7 OUT OF THE PAIN SCALE OF 0-10. PATIENT MEDICATED AT THIS TIME WITH 1 5MG/325MG HYDROCODONE AT THIS TIME. PATIENT WILL CONTINUE TO BE MONITORED.
--- NOTE | 2021-01-04 16:15 | NUR ---
PATIENT IN BED AT THIS TIME AND STATED HER PAIN LEVEL IN HER FEET IS NOW A 4 OUT OF THE PAIN SCALE OF 0-10. NEURO CHECKS REMAIN UNCHANGED AND PATIENT DENIES ANY HEADACHE AT THIS TIME. SIDERAILS ARE UP X 2 CALL LIGHT WITHIN REACH. WILL CONTINUE TO MONITORE TELE ON AND BEING MONITOERED BY ED.
[2021-01-04 18:29] LABS: URINE BILIRUBIN - DIPSTICK NEGATIVE (NEGATIVE); URINE BLOOD DIPSTICK TRACE-LYSED (NEGATIVE); URINE COLOR YELLOW; URINE GLUCOSE - DIPSTICK NEGATIVE (NEGATIVE); URINE KETONE NEGATIVE (NEGATIVE); URINE LEUK ESTERASE NEGATIVE (NEGATIVE); URINE NITRITE - DIPSTICK NEGATIVE (Negative); URINE PROTEIN - DIPSTICK NEGATIVE (NEG-TRACE)
[2021-01-04 19:05] VITALS: BP 128/53
--- NOTE | 2021-01-04 21:47 | NUR ---
RECEIVIED REPORT FROM REZA ESTEVES. PHYSICAL ASSESMENT COMPLETE. PT CURRENTLY DENIES PAIN OR DISCOMFORT. SCHEDULED MEDICATIONS AND PRN MEDICATION ADMINISTERED, SEE E-MAR. PT DENIES ANY NEEDS AT THIS TIME. PLAN OF CARE REVIEWED, PT DENIES QUESTIONS, VERBALIZES UNDERSTANDING. ITEMS WITHIN REACH, BED LOCKED IN LOW POSITION W/ BEDRAILS UP X2. CALL BUENROSTRO WITHIN REACH, AGREES TO CALL PRN.
--- NOTE | 2021-01-05 | NUR ---
PT LAYING IN BED WITH EYES CLOSED, APPEARS TO BE SLEEPING, APPEARS COMFORTABLE AND IN NO DISTRESS. RESPIRATIONS REGULAR AND UNLABORED. ITEMS REMAIN WITHIN REACH, CALL BUENROSTRO REMAINS WITHIN REACH. BED REMAINS LOCKED AND IN LOW POSITION WITH BEDRAILS UP X2. WILL CONTINUE TO MONITOR.
[2021-01-05 04:00] VITALS: BP 150/72
--- NOTE | 2021-01-05 04:15 | NUR ---
PT RESTING IN BED, NO SIGNS OF DISTRESS NOTED, RESP EVEN AND UNLABORED. PT VOICES NO NEEDS OR COMPLAINTS AT THIS TIME. CALL LIGHT IN REACH, CONTINUE TO MONITOR.
--- NOTE | 2021-01-05 04:35 | NUR ---
PT C/O THAT IT IS DIFFICULT TO BREATH. PT WAS GETTING A BLOOD DRAW AT THE TIME. RAISED PT INTO SEMI BUCK POSITION. O2 STATS CHECKED; O2 95% ON 2.5 LITERS OF 02. WILL CONTINUE TO MONITOR,
[2021-01-05 05:34] LABS: HEMATOCRIT 41.3 % (37.0-47.0); HEMOGLOBIN 13.4 g/dl (12.0-16.0); IMMATURE GRANULOCYTES 0.2 % (0.0-5.0); MEAN CELL VOLUME 96.3 fL CALC (80.0-100.0); MEAN CORPUSCULAR HGB 31.2 pG CALC (26.0-32.0); MEAN CORPUSCULAR HGB CONC 32.4 g/dL CAL (32.0-36.0); NEUT# 3.25 thou/uL (2.00-7.15); RED BLOOD COUNT 4.29 mill/uL (4.20-5.60); RED CELL DISTRI WIDTH 13.2 % (11.5-15.5)
[2021-01-05 05:49] LABS: ALBUMIN 3.6 g/dL (3.2-5.0); ALKALINE PHOSPHATASE 67 u/l (38-126); ANION GAP 9 (6-22 (CALC)); BILIRUBIN, TOTAL 0.3 mg/dL (0.0-1.4); BUN 17 mg/dL (8-23); BUN/CREATININE RATIO 26 (12-20 (CALC)); CARBON DIOXIDE 32 mmol/l (22-30); CHLORIDE 100 mmol/l (95-108); CREATININE 0.7 mg/dL (0.5-1.0); GFR > 60 ML/MIN (>=60 (CALC)); GFR FOR AFR.AMER. > 60 ML/MIN (>=60 (CALC)); POTASSIUM 3.7 mmol/l (3.5-5.1); SGOT/AST 15 u/l (9-36); SODIUM 137 mmol/l (137-146); TOTAL PROTEIN 6.4 g/dL (6.3-8.2)
[2021-01-05 07:47] VITALS: BP 144/71
--- NOTE | 2021-01-05 10:00 | NUR ---
DR. TURNER IN TO SEE PT; PLAN OF CARE DISCUSSED
[2021-01-05 14:57] VITALS: BP 121/55
[2021-01-05 19:07] VITALS: BP 124/67
--- NOTE | 2021-01-05 20:00 | NUR ---
RECEIVED REPORT FROM DAY NURSE, PATIENT AWAKE, WATCING TV, WITH SALINE LOCK ON LAC, PATENT FLUSHES WELL REMAINS ON TELE SR 64, BREATHING EVEN UNLABORED, EQUALLY REACTIVE, SLUGGISH, LEFT FACIAL DROOP NOTED, LEFT SIDED WEAKNES FROM PREVIUOS STROKE, RT HAND SHANKER OUT MODERATE LEFT SHANKER OUT WEAK, ALERT ORIENTED X 3, CLEAR SPEECH, ABLE TO CLOSE OPEN BOTH EYES, VISUAL FARR INTACT. ABLE TO FOLLOW FINGER FROM SIDE TO SIDE, ABLE TO EXTEND ARM AND LEGS NO DRIFT NOTED, OCCASIONAL COUGH NOTED, PATIENT STATED CLEAR MUCUS COMING OUT, WITH PUREWICK, DRAINING [place] COLORED URINE, C/O PAIN ON LEFT FOOT STATED FROM PREVIOUS STROKE, WILL MEDICATE, CALL LIGHT AT REACH.
[2021-01-06] VITALS: BP 139/70
--- NOTE | 2021-01-06 | NUR ---
PATEINT RESTING IN BED WITH EYES CLOSED, BREATHING UNLABORED CALL LIGHT AT REACH.
[2021-01-06 04:00] VITALS: BP 142/76
--- NOTE | 2021-01-06 04:54 | NUR ---
PATIENT RESTING IN BED, EYS CLOSED, EASY TO AWAKEN BREATHING UNLABORED, NO DISCOMFORTS NOTED AT THIS TIME CALL LIGHT AT REACH.
--- NOTE | 2021-01-06 05:22 | NUR ---
PATIENT IV DUE TO BE CHANGED, PATIENT REFUSED AT THIS TIME, STATED IS SUPPOSED TO BE DISCHARGED TODAY, IV SITE APPEARS HEALTHY, PATENT FLUSHES WELL.
[2021-01-06 06:10] LABS: HEMATOCRIT 41.7 % (37.0-47.0); HEMOGLOBIN 13.5 g/dl (12.0-16.0); MEAN CELL VOLUME 96.1 fL CALC (80.0-100.0); MEAN CORPUSCULAR HGB 31.1 pG CALC (26.0-32.0); MEAN CORPUSCULAR HGB CONC 32.4 g/dL CAL (32.0-36.0); RED BLOOD COUNT 4.34 mill/uL (4.20-5.60); RED CELL DISTRI WIDTH 13.1 % (11.5-15.5)
[2021-01-06 06:31] LABS: ANION GAP 8 (6-22 (CALC)); BUN 20 mg/dL (8-23); BUN/CREATININE RATIO 32 (12-20 (CALC)); CARBON DIOXIDE 32 mmol/l (22-30); CHLORIDE 99 mmol/l (95-108); CREATININE 0.6 mg/dL (0.5-1.0); GFR > 60 ML/MIN (>=60 (CALC)); GFR FOR AFR.AMER. > 60 ML/MIN (>=60 (CALC)); MAGNESIUM 1.8 mg/dL (1.6-2.3); POTASSIUM 3.8 mmol/l (3.5-5.1); SODIUM 136 mmol/l (137-146)
[2021-01-06 07:30] VITALS: BP 126/72
--- NOTE | 2021-01-06 08:04 | NUR ---
PT. RESTING IN BED aLERT ORIENTED [id number] PAIN AT PRESENT TIME VSS NO ACCUTE DESTRESS NOTED
[2021-01-06 11:00] VITALS: BP 128/58
--- NOTE | 2021-01-06 11:15 | NUR ---
PT IN TO AMBULATE PT IN THE ROOM.
[2021-01-06] MEDS ORDERED: MECLIZINE25 MG PO (11:24)
--- NOTE | 2021-01-06 12:00 | NUR ---
PT HAS BEEN IN THE CHAIR AND THEN BACK TO BED WITH PHYSICAL THERAPY.
[2021-01-06 14:30] VITALS: BP 120/71
--- NOTE | 2021-01-06 15:02 | NUR ---
IV SITE AND TELE MONITOR TAKEN OFF. DISCHARGE INSTRUCTIONS GIVEN TO PT AND WILL CALL FOR HER RIDE.
--- NOTE | 2021-01-06 15:41 | NUR ---
Patient was seen and treated at bedside.Patient identity verified via full name and . Patient denies any pain and discomfort with transfers and exercises. Patient practiced sit to stand and bed-chair transfers with +1 CGA. Patient performed strengthening exercises in sitting position. Patient performed walking activities inside the bedroom x 30 ft using rolling walker. Patient primarily limited by fatigue and instability. Patient tolerated all exercises well but requires +1 CGA specially with standing and walking activities. Patient also needs frequent rest periods to recover from each acttivity. Patient was asssited back into bed, positioned in semi-ibrahim position. Patient was left resting comfortably on bed with call button at bedside.
--- NOTE | 2021-01-06 16:00 | NUR ---
DISCHARGE INSTRUCTIONS GIVEN AND VERBALIZED UDNERSTANDING.
--- NOTE | 2021-01-06 16:05 | NUR ---
Discharge instructions given. Patient verbalizes understanding of same. Discharged in stable condition via Wheelchair to Home with family. All belongings sent with pt.
== END 2021-01-06 15:46 | disposition home health service (06) ==
LOC: ED 21:21 → ED-I 01-04 02:16 → ED 01-04 02:31 → ED-I 01-04 02:32 → MS2 01-04 02:32
PROVIDERS: Emergency Medicine; Nurse Practitioner; Physician Assistant; ADMIT Internal Medicine; ATTEND Internal Medicine
DX: R42 Dizziness and giddiness (principal); R00.1 Bradycardia, unspecified; I95.9 Hypotension, unspecified; I69.354 Hemiplegia and hemiparesis following cerebral infarction affecting left non-dominant side; I10 Essential (primary) hypertension; I25.10 Atherosclerotic heart disease of native coronary artery without angina pectoris; J44.9 Chronic obstructive pulmonary disease, unspecified; F41.9 Anxiety disorder, unspecified; E78.5 Hyperlipidemia, unspecified; F32.9 Major depressive disorder, single episode, unspecified; K21.9 Gastro-esophageal reflux disease without esophagitis; F17.200 Nicotine dependence, unspecified, uncomplicated; Z87.11 Personal history of peptic ulcer disease; Z95.5 Presence of coronary angioplasty implant and graft; Z99.81 Dependence on supplemental oxygen; Z20.822 Contact with and (suspected) exposure to COVID-19
CPT/HCPCS: G0378; J1650; Q9967

== ENCOUNTER 2022-02-21 02:37 | Inpatient (IN) | payer MEDICARE ==
[~2022-02-21] VITALS: Ht 149.9 cm; Wt 49.5 kg
[2022-02-21] VITALS (243 sets, daily range): BP systolic 60–147; BP diastolic 24–118
[~2022-02-21 02:37] MED LIST changes: +HYDROCO/APAP1 TA9 PO; +LIPITOR40 M1 PO; +MECLIZINE25 MG PO
[2022-02-21] MEDS ORDERED: BREZTRI AEROSPH1 AER IN (03:05)
--- NOTE | 2022-02-21 03:22 | NUR ---
PT ARRIVED VIA EMS FROM HOME, TRANSFERRED INTO ROOM. PT WAS PLACED ON O2 AT 3L, PT IS REGULARLY ON HOME O2. LINE PLACED, LABS AND SWABS DRAWN AND SENT. PT IS STABLE AND COMFORTABLE IN ROOM WAITING ON RESULTS. WILL CONTINUE TO MONITOR.
[2022-02-21 03:28] LABS: HEMATOCRIT 38.8 % (37.0-47.0); HEMOGLOBIN 12.8 g/dl (12.0-16.0); MEAN CELL VOLUME 96.8 fL CALC (80.0-100.0); MEAN CORPUSCULAR HGB 31.9 pG CALC (26.0-32.0); NEUT# 5.48 thou/uL (2.00-7.15); RED BLOOD COUNT 4.01 mill/uL (4.20-5.60); RED CELL DISTRI WIDTH 13.6 % (11.5-15.5)
[2022-02-21 03:40] LABS: ALBUMIN 3.9 g/dL (3.2-5.0); ALKALINE PHOSPHATASE 71 u/l (38-126); ANION GAP 10 (6-22 (CALC)); BUN 11 mg/dL (8-23); BUN/CREATININE RATIO 16 (12-20 (CALC)); CARBON DIOXIDE 30 mmol/l (22-30); CHLORIDE 98 mmol/l (95-108); CREATININE 0.7 mg/dL (0.5-1.0); GFR FOR AFR.AMER. > 60 ML/MIN (>=60 (CALC)); GFR OTHER RACES > 60 ML/MIN (>=60 (CALC)); POTASSIUM 3.4 mmol/l (3.5-5.1); SODIUM 134 mmol/l (137-146); TOTAL PROTEIN 7.2 g/dL (6.3-8.2)
[2022-02-21 03:41] LABS: BILIRUBIN, TOTAL 0.5 mg/dL (0.0-1.4); SGOT/AST 29 u/l (9-36)
[2022-02-21 03:42] LABS: D-DIMER 0.49 mg/L (0.19-0.60)
[2022-02-21 03:45] LABS: INTERNATIONAL NORMALIZED RATIO 1.1 RATIO (0.7-1.3); PROTHROMBIN TIME 11.2 SECONDS (9.0-12.5)
[2022-02-21 03:52] LABS: MYOGLOBIN 66 ng/mL (0 - 62)
--- NOTE | 2022-02-21 04:15 | NUR ---
CARDIZEM DECREASED TO 2.5MG/HR
--- NOTE | 2022-02-21 04:16 | NUR ---
O2 SAT 89% ON 2L VIA NC. O2 INCREASED TO 3L SATURATION INCREASED TO 93%.
--- NOTE | 2022-02-21 04:17 | NUR ---
SINUS RHYTHM NOTED ON MONITOR.
--- NOTE | 2022-02-21 04:23 | NUR ---
PT HAS REMAINED STABLE, CARDIZEM DRIP TITRATED DOWN TO 2.5 DUE TO CORRECTED RHYTHM, PT IS CURRENTLY HAVING REPEAT EKG TO CONFIRM CHANGE. WILL CONTINUE TO MONITOR.
[2022-02-21 04:28] LABS: TSH, 3RD GENERATION 0.42 uIU/mL (0.47 - 4.68)
--- NOTE | 2022-02-21 06:05 | NUR ---
Reassessment of patient completed. No distress noted. HR MAINTAINING STABLE RATE @ 2.5 ON CARDIZEM DRIP. RESTING COMFORTABLY, WILL CONTINUE TO MONITOR.
[2022-02-21] MEDS ORDERED: LEXAPRO10 MG PO (07:31)
[2022-02-21] MEDS ORDERED: NORVASC5 M1 PO (07:32)
[2022-02-21] MEDS ORDERED: IPRATROPIU0.5 MG/3 M IN (07:33)
--- NOTE | 2022-02-21 10:40 | NUR ---
PT ARRIVED FROM ER, SEEN ALERT AND ORIENTED X 3. RESPIRATIONS ARE SOMEWHAT NOISY, BUT PT STATES THAT IS ALWAYS TRUE. LUNGS ARE HEARD SLIGHTLY WHEEZY AND DIMINISHED, 3 LPM AT HOME. PT DENIES CHEST PAIN OR SHORTNESS OF BREATH.
--- NOTE | 2022-02-21 15:43 | NUR ---
PT CONTINUES AT REST IN THE BED, CARDIZEM DRIP OFF. HR REMAINS SB UPPER 50s.
--- NOTE | 2022-02-21 16:57 | NUR ---
MONITOR SHOWS SB AT 57 RATE WITH PVCs. PT IN NO DISTRESS SHE RESTS IN THE BED. COVID PRECAUTONS IN PLACE.
--- NOTE | 2022-02-21 18:45 | NUR ---
REPORT RECIEVED FROM RACHEAL ESTEVES. FAMILY IN ROOM VISITING. PATIENT ALERT ORIENTED X 3. DENIES PAIN OR DISCOMFORT. RESPIRATIONS EVEN AND UNLABORED DIMISHED AT BASES. HEARTSUNDS SI, S2 WITH AUDIBLE SYSTOLIC GRADE II MURMUR.
--- NOTE | 2022-02-21 20:00 | NUR ---
PATIENT LYING IN BED AWAKE ALERT AND ORIENTED X 3. DENIES PAIN OR DISCOMFORT RESPIRATIONS EVEN AND UNLABORED. PLEASANT AND COOPERATIVE.
--- NOTE | 2022-02-21 22:00 | NUR ---
AWAKE AND ALERT ORIENTED X3 PO FLUIDS TOLERATED WELL. PERWICK URINARY CATHETER IN PLACE. RESPIRATIONS EVEN AND UNLABORED. DENIESPAIN OR DISCOMFORT.
--- NOTE | 2022-02-21 22:14 | NUR ---
PATIENT LYING IN BED RELAXED POSTURE. AWAKE ALERT AND ORIENTED X 3. PLEASANT AND COOPERATIVE. RESPIRATIONS EVEN AND UNLABORED LUNG SOUNDS WITH SOFT COURSENESS DECREASED AT BASES. USING OXYGEN AT 3LPM NC SATUATIONS AT 94%. ESCALATOR MECHANIC SHOWS AFIB WITH OCCASIONAL PVC COUPLETS. DENIES PAIN OR DISCOMFORT.
--- NOTE | 2022-02-21 23:07 | NUR ---
RESTING QUIETLY IN BED WITH EYES CLOSE LYING ON LEFT SIDE. RESPIRATIONS EVEN AND UNLABORED. WILL CONTINUE TO MONITOR SHOWS SINUS BRADYCARDIA HR 50-60 BPM BP 111/49 OXYGEN SATUATION 95%
--- NOTE | 2022-02-21 23:50 | NUR ---
RESTING QUIETLY IN BED WITH EYES CLOSED MIRROR FRAMER SHOWS SINUS RHYTHM WITH OCCASSIOAL PVCS. NO RESPIRATORY DISTRESS NOTED.
[2022-02-22] VITALS (241 sets, daily range): BP systolic 93–159; BP diastolic 49–118
--- NOTE | 2022-02-22 02:00 | NUR ---
RESTING QUIETLY IN BED WITH EYES CLOSED BP 124/54 O2 SAT 94% TRAINING AND DEVELOPMENT REP SHOW SINUS BRADYCARDIA HR IN THE 50 - 54 NO OTHER ACUTE CHANGES NOTED.
--- NOTE | 2022-02-22 03:42 | NUR ---
NO ACUTE CHANGES NOTED SINCE PREVIOUS ASSESSMENT. RESTING QUIETLY NO RESPIRATORY DISTRESS NOTED.
[2022-02-22 05:48] LABS: HEMATOCRIT 38.3 % (37.0-47.0); HEMOGLOBIN 12.6 g/dl (12.0-16.0); IMMATURE GRANULOCYTES 0.3 % (0.0-5.0); MEAN CELL VOLUME 96.2 fL CALC (80.0-100.0); MEAN CORPUSCULAR HGB 31.7 pG CALC (26.0-32.0); MEAN CORPUSCULAR HGB CONC 32.9 g/dL CAL (32.0-36.0); NEUT# 8.68 thou/uL (2.00-7.15); RED BLOOD COUNT 3.98 mill/uL (4.20-5.60); RED CELL DISTRI WIDTH 13.4 % (11.5-15.5)
--- NOTE | 2022-02-22 06:10 | NUR ---
PATIENT INCONTINENT OF URINE PERICARE PROVIDED LINEN SHEETS CHANGED PATIENT WHWEEZING WITH ACTIVITY ALBUTEROL INHALER USED OXYGEN 88% O2 INCREASED TO 4LPM HUMIFICATION ADDED TO DELIVERY SYSTEM. O2 SAT NOW AT 93%
[2022-02-22 06:25] LABS: ALBUMIN 3.4 g/dL (3.2-5.0); ALKALINE PHOSPHATASE 56 u/l (38-126); ANION GAP 8 (6-22 (CALC)); BILIRUBIN, TOTAL 0.4 mg/dL (0.0-1.4); BUN 12 mg/dL (8-23); BUN/CREATININE RATIO 20 (12-20 (CALC)); C-REACTIVE PROTEIN 0.8 mg/dL (0-0.9); CARBON DIOXIDE 33 mmol/l (22-30); CHLORIDE 97 mmol/l (95-108); CREATININE 0.6 mg/dL (0.5-1.0); GFR FOR AFR.AMER. > 60 ML/MIN (>=60 (CALC)); GFR OTHER RACES > 60 ML/MIN (>=60 (CALC)); POTASSIUM 3.5 mmol/l (3.5-5.1); SGOT/AST 25 u/l (9-36); SODIUM 135 mmol/l (137-146); TOTAL PROTEIN 6.5 g/dL (6.3-8.2)
--- NOTE | 2022-02-22 07:26 | NUR ---
PT CONSENTED TO RECEIVE PNEUMONIA VAX. HAD PREVNAR 13 06/2016 AND PNEUMOVAX 23 IN 2012 - BOTH OVER AGE 65, SO NO FURTHER VAX WARRANTED.
--- NOTE | 2022-02-22 07:40 | NUR ---
PT IS SLEEPING, EASILY AROUSABLE. PT HAS NO C/O AT THIS TIME. PT A&O 4LNC HUMIDIFIED. PT SATS 91. PT FOLLOWS COMMANDS APPROPRIATELY, IS ABLE TO MAKE NEEDS KNOWN. PT HAS SAFETY PRECAUTIONS IN PLACE, BED ALARM ACTIVE, WILL CONTINUE TO MONITOR.
--- NOTE | 2022-02-22 10:00 | NUR ---
PT HAD BM ON BEDPAN. PT WAS ABLE TO TURN WITH MINIMAL ASSISTANCE. PT LINENS HAVE BEEN CHANGED AND PLACED NEW PUREWIC. PT SAT DROPPED TO 84%, PAUSED CARE FOR PT TO RECOVER IN ORDER TO RESUME. PT HAS CALL LIGHT NEAR. WILL CONTINUE TO MONITOR.
--- NOTE | 2022-02-22 10:44 | NUR ---
SPOKE TO PT DAUGHTER PROVIDED WITH UPDATE. FAMILY AT BEDSIDE VISITING.
--- NOTE | 2022-02-22 12:30 | NUR ---
PT IS SLEEPING, PT DIDN'T WANT LUNCH TRAY AT THIS TIME. PLACE TRAY AT NURSES STATION SO STAFF CAN REHEAT WHEN PT IS READY FOR IT. PT HAS NO CHANGE TO ASSESSMENT. PT HAS NO C/O AT THIS TIME. CALL LIGHT IS NEAR WITH CURTAIN OPEN ENOUGH TO MONITOR PT.
--- NOTE | 2022-02-22 16:08 | NUR ---
PT IS SLEEPING, PT DID NOT EAT LUNCH MEAL, WILL ENCOURAGE FOR DINNER. PT HAS NO CHANGE TO ASSESSMENT. CALL LIGHT IS NEAR, NAD. VSS. PT BED ALARM ACTIVE AND FALL PRECAUTIONS IN PLACE.
--- NOTE | 2022-02-22 19:30 | NUR ---
eyes closed. no resp diff. awakens easily. resps become somewhat rapid. no distress. o2 cont per nc. hospital monitor shows a fib pvcs. #20 rac saline lock. po fluids taken well. pure wick cath in place. urine clear yellow. urine spec collected & sent to lab. fall & air/contact precautions cont.
[2022-02-22 21:36] LABS: URINE BILIRUBIN - DIPSTICK NEGATIVE (NEGATIVE); URINE BLOOD DIPSTICK MODERATE (NEGATIVE); URINE COLOR YELLOW; URINE GLUCOSE - DIPSTICK NEGATIVE (NEGATIVE); URINE KETONE TRACE mg/dL (NEGATIVE); URINE LEUK ESTERASE NEGATIVE (NEGATIVE); URINE PROTEIN - DIPSTICK 30 mg/dL (NEG-TRACE); URINE UROBILINOGEN - DIPSTICK 0.2 E.U./dL (0.2)
[2022-02-22 21:51] LABS: URINE NITRITE - DIPSTICK NEGATIVE (Negative)
[2022-02-22 21:52] LABS: URINE WBC 0-2 WBC/hpf (0-5)
--- NOTE | 2022-02-22 22:00 | NUR ---
eyes closed. no distress. environmental monitoring technician shows sinus thythm pvcs
[2022-02-23] VITALS (17 sets, daily range): BP systolic 102–125; BP diastolic 57–83
--- NOTE | 2022-02-23 02:00 | NUR ---
resting quietly. resps even & unlabored. no apparent distress.
--- NOTE | 2022-02-23 03:30 | NUR ---
lab here. blood drawn.
[2022-02-23 05:32] LABS: ALBUMIN 3.4 g/dL (3.2-5.0); ALKALINE PHOSPHATASE 53 u/l (38-126); ANION GAP 9 (6-22 (CALC)); BILIRUBIN, TOTAL 0.4 mg/dL (0.0-1.4); BUN 15 mg/dL (8-23); BUN/CREATININE RATIO 24 (12-20 (CALC)); CARBON DIOXIDE 32 mmol/l (22-30); CHLORIDE 95 mmol/l (95-108); CREATININE 0.6 mg/dL (0.5-1.0); GFR FOR AFR.AMER. > 60 ML/MIN (>=60 (CALC)); GFR OTHER RACES > 60 ML/MIN (>=60 (CALC)); POTASSIUM 2.9 mmol/l (3.5-5.1); SGOT/AST 24 u/l (9-36); SODIUM 133 mmol/l (137-146); TOTAL PROTEIN 6.6 g/dL (6.3-8.2)
[2022-02-23 05:34] LABS: HEMATOCRIT 41.8 % (37.0-47.0); HEMOGLOBIN 14.1 g/dl (12.0-16.0); MEAN CELL VOLUME 94.8 fL CALC (80.0-100.0); MEAN CORPUSCULAR HGB CONC 33.7 g/dL CAL (32.0-36.0); RED BLOOD COUNT 4.41 mill/uL (4.20-5.60); RED CELL DISTRI WIDTH 13.5 % (11.5-15.5)
[2022-02-23 05:41] LABS: MAGNESIUM 1.3 mg/dL (1.6-2.3)
--- NOTE | 2022-02-23 05:50 | NUR ---
no resp distress this shift. classroom monitor shows sinus rhythm pvcs.
--- NOTE | 2022-02-23 08:00 | NUR ---
Patient is screened for PT, OT and ST consults if medical agrees
--- NOTE | 2022-02-23 09:00 | NUR ---
PT SEEN AWAKE, ALERT, ORIENTED X 3. LUNGS ARE WHEEZY ON RIGHT SIDE, DIMINISHED THROUGHOUT, USING [address] LYONS ROUNDED, TURNS OXYGEN DOWN TO 5 LPM. PT ABLE TO FEED HERSELF BREAKFAST WITHOUT DIFFICULTY.
--- NOTE | 2022-02-23 11:13 | NUR ---
PT CONTINUES AT REST IN THE BED WITHOUT EVIDENCE OF DISTRESS. NASAL CANNULA TURNED DOWN TO 4 LPM, PT SEEN AT 97%. IVF TURNED DOWN TO KVO PER DR LYONS'S ORDER.
--- NOTE | 2022-02-23 12:38 | NUR ---
IV MAGNESIUM AND POTASSIUM HAVE INFUSED WITHOUT DIFFICULTY, TOLERATED WELL BY PT. MEAL BEFORE HER, PT EATING NOW. 97% ON 4 LPM NC.
--- NOTE | 2022-02-23 16:32 | NUR ---
PT REMAINS BEFORE, NO CHANGE IN STATUS. OXYGEN TURNED DOWN TO 3 LPM SHE WEARS AT HOME, SAT 96%.
--- NOTE | 2022-02-23 20:00 | NUR ---
awakens easily. denies distress. manager cardiac cath shows sinus rhythm pvcs. #20 rac. po fluids takem fair. pure wick cath in place draining clear yellow urine. reqires much encouragement to assist with care. fall precautions cont.
--- NOTE | 2022-02-23 22:00 | NUR ---
eyes closed. no resp diff.
[2022-02-24] VITALS (23 sets, daily range): BP systolic 109–158; BP diastolic 58–132
--- NOTE | 2022-02-24 00:01 | NUR ---
resting quietly. no distress.
--- NOTE | 2022-02-24 02:00 | NUR ---
eyes closed. residential monitor shows sinus thad. no distress.
--- NOTE | 2022-02-24 04:00 | NUR ---
eyes closed. no apparent distress. security lead shows sinus thad.
--- NOTE | 2022-02-24 04:30 | NUR ---
lab here. blood drawn.
[2022-02-24 05:44] LABS: HEMATOCRIT 38.6 % (37.0-47.0); HEMOGLOBIN 12.8 g/dl (12.0-16.0); MEAN CELL VOLUME 96.7 fL CALC (80.0-100.0); MEAN CORPUSCULAR HGB 32.1 pG CALC (26.0-32.0); MEAN CORPUSCULAR HGB CONC 33.2 g/dL CAL (32.0-36.0); RED BLOOD COUNT 3.99 mill/uL (4.20-5.60); RED CELL DISTRI WIDTH 13.7 % (11.5-15.5)
--- NOTE | 2022-02-24 05:55 | NUR ---
awake. denies resp diff. o2 cont.
[2022-02-24 06:09] LABS: BUN 20 mg/dL (8-23); BUN/CREATININE RATIO 37 (12-20 (CALC)); CARBON DIOXIDE 31 mmol/l (22-30); CHLORIDE 100 mmol/l (95-108); CREATININE 0.5 mg/dL (0.5-1.0); GFR FOR AFR.AMER. > 60 ML/MIN (>=60 (CALC)); GFR OTHER RACES > 60 ML/MIN (>=60 (CALC)); SODIUM 134 mmol/l (137-146)
[2022-02-24 06:43] LABS: ANION GAP 7 (6-22 (CALC)); MAGNESIUM 2.7 mg/dL (1.6-2.3); POTASSIUM 3.7 mmol/l (3.5-5.1)
--- NOTE | 2022-02-24 08:26 | NUR ---
PT SEEN AWAKE, ALERT, ORIENTED X 3, AT REST IN THE BED IN NO ACUTE DISTRESS. NC 3LPM, SATS 94%.
--- NOTE | 2022-02-24 11:56 | NUR ---
PT ASSISTED TO BEDPAN, HEARD TO SOUND WET, CRACKLES IN THE BASES. DR LYONS NOTIFIED, ORDER RECEIVED. PT WITH SATS IN THE LOW 90s, BUT APPEARS SOMEWHAT LABORED. TO MONITOR.
--- NOTE | 2022-02-24 13:26 | NUR ---
DAUGHTER AT BEDSIDE VISITING. PT STATES THAT SHE FEELS A LITTLE BETTER AFTER RECEIVING THE LASIX.
--- NOTE | 2022-02-24 16:21 | NUR ---
PT CONTINUES TO REST IN THE BED, NO ACUTE DISTRESS. SATS REMAIN IN THE LOW 90s USING 3 LPM NC.
--- NOTE | 2022-02-24 19:15 | NUR ---
awakens easily. denies resp diff. o2 cont per nc. has moist nonprod cough. cafeteria monitor shows sinus rhythm pvcs. #20 rac saline lock. pure wick cath in place. urine clear yellow. assisted with turn. requires total care for all needs. fall & air/contact precautions cont.
--- NOTE | 2022-02-24 22:00 | NUR ---
eyes closed. no ditress. o2 cont.
[2022-02-25] VITALS (24 sets, daily range): BP systolic 121–159; BP diastolic 62–85
--- NOTE | 2022-02-25 00:01 | NUR ---
resting quietly. no distress. bus monitor shows sinus rhythm.
--- NOTE | 2022-02-25 02:00 | NUR ---
resting quietly. resps even & unlabored. no apparent distress.
--- NOTE | 2022-02-25 05:00 | NUR ---
pure wick cath dislodged. linen wet. pure wick replaced. linen changed.
--- NOTE | 2022-02-25 06:00 | NUR ---
eyes closed. no distress. cardiac technologist shows sinus rhythm.
[2022-02-25 06:37] LABS: HEMOGLOBIN 13.2 g/dl (12.0-16.0); MEAN CELL VOLUME 96.9 fL CALC (80.0-100.0); RED BLOOD COUNT 4.13 mill/uL (4.20-5.60); RED CELL DISTRI WIDTH 13.4 % (11.5-15.5)
[2022-02-25 07:16] LABS: ALBUMIN 3.1 g/dL (3.2-5.0); ALKALINE PHOSPHATASE 47 u/l (38-126); ANION GAP 7 (6-22 (CALC)); BILIRUBIN, TOTAL 0.3 mg/dL (0.0-1.4); BUN 24 mg/dL (8-23); BUN/CREATININE RATIO 36 (12-20 (CALC)); CARBON DIOXIDE 34 mmol/l (22-30); CHLORIDE 100 mmol/l (95-108); CREATININE 0.7 mg/dL (0.5-1.0); GFR FOR AFR.AMER. > 60 ML/MIN (>=60 (CALC)); GFR OTHER RACES > 60 ML/MIN (>=60 (CALC)); MAGNESIUM 2.3 mg/dL (1.6-2.3); POTASSIUM 3.7 mmol/l (3.5-5.1); SGOT/AST 16 u/l (9-36); SODIUM 137 mmol/l (137-146); TOTAL PROTEIN 5.8 g/dL (6.3-8.2)
--- NOTE | 2022-02-25 08:10 | NUR ---
pt AO, accessory muscle use, able to move self in bed, minimal appetite, denies pain/SOB/needs
--- NOTE | 2022-02-25 12:51 | NUR ---
pt sitting up in bed eating lunch, contiues to deny pain/needs
--- NOTE | 2022-02-25 15:23 | NUR ---
PATIENT ALERT AND ORIENTED ABLE TO SELF ADJUST IN BED DENIES ANY PAIN AT THIS TIME. PATIENT USING ACCESSORY MUSCLES AT THIS TIME
--- NOTE | 2022-02-25 17:30 | NUR ---
NO CHANGE FROM PREVIOUS NOTE
--- NOTE | 2022-02-25 19:53 | NUR ---
PATIENT RESTING IN BED AT THIS TIME. PURWICK IN PLACE ALERT AND ORIENTED X 3 PATIENT NEURO CHECK REMAINS UNCHANGED. AT THIS TIME. TESTING AND REGULATING CHIEF DONE SEE INTERVENTIONS. CALL LIGHT IS WITHIN REACH AT THIS TIME. SIDERAILS ARE UP X 2. PATIENT DOES PRESENT WITH WHEEZES AND NO COUGH AT THIS TIME. PATIENT REMAINS IN ISOLATION DUE TO COVID. LEAD CARGOMAN READING HR 70 BP 152/67 SPO2 IS 93%. WILL CONTINUE TO MONITOR.
--- NOTE | 2022-02-25 22:00 | NUR ---
PATIENT RESTING IN BED AT THIS TIME. INDUSTRIAL TRUCK DRIVER READING SINUS RHYTHM AND HR IS 60 BP IS 136/79 AND SPO2 IS CURRENTLY 93% ON TWO LITERS. WILL CONTINUE TO MONITOR
[2022-02-26] VITALS (37 sets, daily range): BP systolic 95–165; BP diastolic 55–120
--- NOTE | 2022-02-26 | NUR ---
PATIENT RESTING IN BED AT THIS TIME WITH EYES CLOSED AND RESPIRATIONS EASY AND UNLABORED. HR IS SINUS ALIDA 56 SPO2 IS 97 AND SIDERAILS ARE UP X 2 AT THIS ITME. NEURO CHECKS REMAIN UNCHANGED AT THIS TIME.
--- NOTE | 2022-02-26 02:00 | NUR ---
PATIENT RESTING IN BED WITH EYES CLOSED AND RESPRIATIONS EASY AND UNLABORED. BLOOD PRESSURE IS 146/78 HR IS SINUS RHYTHM AND HR OF 62 SPO2 IS 99% ON O2 2L HUMIDIFIED AIR. SIDERAILS ARE UP CALL LIGHT WIHTIN REACH.
--- NOTE | 2022-02-26 04:00 | NUR ---
PATIENT RESTING IN BED WITH EYES CLOSED NO ISSUES AT THIS TIME. PROFESSOR OF THEOLOGY SHOWING HR AT 56 AND BP 152/74 SPO2 IS 96% PATIENT REMAINS ON 2L OF HUMIDIFY AIR. WILL CONTINUE TO MONITOR.
[2022-02-26 07:02] LABS: HEMATOCRIT 39.3 % (37.0-47.0); HEMOGLOBIN 12.9 g/dl (12.0-16.0); IMMATURE GRANULOCYTES 0.6 % (0.0-5.0); MEAN CELL VOLUME 95.2 fL CALC (80.0-100.0); MEAN CORPUSCULAR HGB 31.2 pG CALC (26.0-32.0); MEAN CORPUSCULAR HGB CONC 32.8 g/dL CAL (32.0-36.0); NEUT# 6.28 thou/uL (2.00-7.15); RED BLOOD COUNT 4.13 mill/uL (4.20-5.60); RED CELL DISTRI WIDTH 13.1 % (11.5-15.5)
[2022-02-26 07:17] LABS: ALKALINE PHOSPHATASE 42 u/l (38-126); ANION GAP 7 (6-22 (CALC)); BILIRUBIN, TOTAL 0.4 mg/dL (0.0-1.4); BUN 23 mg/dL (8-23); BUN/CREATININE RATIO 45 (12-20 (CALC)); C-REACTIVE PROTEIN 0.6 mg/dL (0-0.9); CARBON DIOXIDE 32 mmol/l (22-30); CHLORIDE 103 mmol/l (95-108); CREATININE 0.5 mg/dL (0.5-1.0); GFR FOR AFR.AMER. > 60 ML/MIN (>=60 (CALC)); GFR OTHER RACES > 60 ML/MIN (>=60 (CALC)); POTASSIUM 3.9 mmol/l (3.5-5.1); SGOT/AST 15 u/l (9-36); SODIUM 138 mmol/l (137-146); TOTAL PROTEIN 5.6 g/dL (6.3-8.2)
--- NOTE | 2022-02-26 07:45 | NUR ---
pt resting in bed with eyes closed; no apparent distress noted; easily aroused; offers no complaints; assessment completed at this time; pt alert and oriented; denies pain; no n/v noted; resp even and unlabored; lungs clear/ diminished; skin color wnl; o2 per nc at 3L; jelly maker cough noted; irreg; strong pulses; no edema noted; sr pac/pvc on monitor; abd soft with bs present; no bm noted per development writer; purewick intact wiht clear yellow urine; mod urinary incont noted to aurea, gloriaare provided; #22 patent to rw with ivf infusing without complication; no redness or edema noted at site; plan of care/ am meds explained; call light within reach; will continue to monitor
--- NOTE | 2022-02-26 08:00 | NUR ---
pt repositioned in bed for breakfast; pt becomes very sob with any exertion; will continue to monitor
--- NOTE | 2022-02-26 08:30 | NUR ---
awake in bed resting on left side; resp labored; o2 per nc; call light within reach; will continue to monitor
--- NOTE | 2022-02-26 08:40 | NUR ---
pt noted with labored resp; hr elevated 110-120s; o2 sat noted in low 90s; pt noted with stridor like breathing; pt admits to worsening sob with movement; pt denies distress; Dr Bhatti on unit and aware of assessment
--- NOTE | 2022-02-26 08:50 | NUR ---
Dr Aguirre present at bedside to assess pt and discuss plan of care
--- NOTE | 2022-02-26 10:00 | NUR ---
resting in bed; sr pac on monitor; offers no complaints; freq rounds; iv intact; will continue to monitor
--- NOTE | 2022-02-26 10:20 | NUR ---
1020- instructional technology teacher at bedside for portable chest xray 1022- pt yelling, "I can't breathe"; reported per instructional technology teacher; pt has just been repositioned for xray; principal technical writer at bedside to assess pt; pt noted in resp distress; pt noted with o2 sat in low 70s, facial cyanosis, tachycardia HR 133-140; RT summoned immed; Joann Nayak RN, RT Joann Durand RN and this principal technical writer present at bedside; Dr Aguirre contacted per Joann Nayak RN; orders received 1025- bipap placed per RT as per MD orders 1030- lasix given as per orders; daughter Mary present, updated on condition per Joann Nayak RN 1054- 16FG gerard catheter inserted using ultrasound technician; immed return of clear yellow urine; pt tolerated well; staff remain with pt for supportive care 1110- daughter Mary present on unit; updated on status/ condition per this principal technical writer
--- NOTE | 2022-02-26 12:08 | NUR ---
awake resting in bed on left side; sr on monitor; iv intact and patent; bipap intact and patent; gerard to gravity; call light within reach; will continue to monitor
--- NOTE | 2022-02-26 14:05 | NUR ---
resting in bed on left side; admits to feeling better; bipap intact; gerard to gravity; sr/pac on monitor; iv intact; will continue to monitor
--- NOTE | 2022-02-26 16:20 | NUR ---
pt awake in bed; sr on monitor; pt converted to nc at 3L as per MD request; pt noted with extensive accessory muscle/abdominal usage; resp rate 44; o2 sat dropped to 88%; pt became tachycardic; commercial insurance underwriter and RT at bedside; bipap reapplied 1640- Dr Aguirre informed staff attempted to place pt on NC as per request; informed of above; orders received to hold CTA; will continue to monitor
--- NOTE | 2022-02-26 18:13 | NUR ---
pt awake in bed; resp labored; iv intact and patent; gerard to gravity; sr with freq pvc on monitor; repositioned; call light within reach
--- NOTE | 2022-02-26 19:00 | NUR ---
BEDSIDE REPORT RECEIVED FROM Sukhdev LY RN. PT ON BIPAP. NO DISTRESS. DENIES NEEDS AT THIS TIME. COVID ISOLATION IN PLACE. BED LOCKED IN LOW POSITION WITH BEDRAILS UP X2. CALL BUENROSTRO WITHIN REACH. CARE OF PT ASSUMMED AT THIS TIME.
--- NOTE | 2022-02-26 19:37 | NUR ---
Milagro ADAIR SET UP MECHANIC STAMPING MACHINES AT BEDSIDE WITH PATIENT.
--- NOTE | 2022-02-26 20:01 | NUR ---
IV LASIX AND ROCEPHIN ADMINISTERED, SEE E-MAR. PHYSICAL ASSESSMENT COMPLETED.
--- NOTE | 2022-02-26 21:07 | NUR ---
PO MEDICATIONS AND INHALER ADMINISTERED, SEE E-MAR. PT TOLERATED TIME OFF MASK AND TOOK MEDICATIONS SLOWLY WITH SEVERAL BREAKS FOR REST. SPO2 DOWN TO 92% FROM 98. DISPLAYED INCREASED WORK OF BREATHING. SPO2 BACK UP TO 98% AND WORK OF BREATHING DECREASED WITH RE-APPLICATION OF BIPAP.
--- NOTE | 2022-02-26 23:23 | NUR ---
PT PUTS JUDICIAL LAW CLERK BUENROSTRO TO REQUEST ASSITANCE TO DRINK WATER. BIPAP MOMENTARILY REMOVED. PT TAKES SEVERAL SIPS OF WATER. C/O PAIN TO NOSE BRIDGE FROM BIPAP MASK. NOSE BRIDGE NOTED TO BE REDDENED WITH INDENTATION IN SKIN FROM MASK. AREA BLANCHABLE AND INTACT. SKIN PREP APPLIED AND DUODERM APPLIED TO PROTECT AREA AND FOR COMFORT. PT REPORTS IT FEELS BETTER. REQUEST LIGHT OFF. DENIES FURTHER NEEDS AT THIS TIME.
[2022-02-27] VITALS (40 sets, daily range): BP systolic 119–162; BP diastolic 66–111
--- NOTE | 2022-02-27 01:30 | NUR ---
PT APPEARS TO BE SLEEPING COMFORTABLY, TOLERATING BIPAP WITH NO APPARENT DISTRESS.
--- NOTE | 2022-02-27 03:30 | NUR ---
B. ADAIR CIVIL ESTIMATOR AT BEDSIDE ASSESSING BIPAP.
--- NOTE | 2022-02-27 05:08 | NUR ---
PT WAKES AND USES CALL BALL TO REQUEST REMOVAL OF MASK TO DRINK. BIPAP REMOVED NAD PT TAKES SEVERAL SIPS OF WATER. PT WISHES TO TRIAL O2 VIA NC AND HOLD BIPAP/ O2 AT 3L VIA NC REAPPLIED AND BIPAP LEFT OFF. PT QUICKLY DROPS SPO2 MID 80S AND BIPAP REAPPLIED. B. ADAIR INTELLECTUAL PROPERTY PARALEGAL AWARE. 550ML CLOUDY YELLOW URINE EMPTIED FROM [place]. BED SCALE READS 47KG, WEIGHT NOT RECORDED IT PRESENTS A APPROXIMATE 10KG WEIGHT LOSS FROM ADMIT WEIGHT. SUSPECT BEDSCALE INNACURATE. WILL ENDORSE TO ONCOMING SHIFT TO ZERO BED FOR ACCURATE WEIGHT IF PT IS TO GET OOB.
[2022-02-27 05:42] LABS: HEMATOCRIT 35.8 % (37.0-47.0); HEMOGLOBIN 11.7 g/dl (12.0-16.0); IMMATURE GRANULOCYTES 0.5 % (0.0-5.0); MEAN CELL VOLUME 95.5 fL CALC (80.0-100.0); MEAN CORPUSCULAR HGB 31.2 pG CALC (26.0-32.0); MEAN CORPUSCULAR HGB CONC 32.7 g/dL CAL (32.0-36.0); NEUT# 9.33 thou/uL (2.00-7.15); RED BLOOD COUNT 3.75 mill/uL (4.20-5.60); RED CELL DISTRI WIDTH 13.1 % (11.5-15.5)
--- NOTE | 2022-02-27 05:44 | NUR ---
AM LABS COLLECTED.
[2022-02-27 06:37] LABS: ALBUMIN 2.9 g/dL (3.2-5.0); ALKALINE PHOSPHATASE 37 u/l (38-126); ANION GAP 7 (6-22 (CALC)); BILIRUBIN, TOTAL 0.4 mg/dL (0.0-1.4); BUN 29 mg/dL (8-23); BUN/CREATININE RATIO 48 (12-20 (CALC)); CARBON DIOXIDE 38 mmol/l (22-30); CHLORIDE 98 mmol/l (95-108); CREATININE 0.6 mg/dL (0.5-1.0); GFR FOR AFR.AMER. > 60 ML/MIN (>=60 (CALC)); GFR OTHER RACES > 60 ML/MIN (>=60 (CALC)); MAGNESIUM 2.2 mg/dL (1.6-2.3); POTASSIUM 3.3 mmol/l (3.5-5.1); SGOT/AST 14 u/l (9-36); SODIUM 140 mmol/l (137-146); TOTAL PROTEIN 5.5 g/dL (6.3-8.2)
--- NOTE | 2022-02-27 07:40 | NUR ---
pt awake in bed; no apparent distress noted; pt offers no complaints; assessment completed at this time; pt alert and oriented; denies pain/ discomfort; no n/v noted; resp even and unlabored; no resp distress noted; lyungs diminished throghout; skin color wnl; bipap intact with settings of 12/5, rate 20, 60% FiO2; will attempt to wean bipap this am; RT notified; o2 sat 99-100%; hr reg; sr/ pac on monitor; abd soft with bs present; no bm noted per manual writer; gerard to gravity draining clear yellow urine; cath strap intact; #22 to rw patent with ivf infusing without complication; #20 to rac saline locked; no redness or edema noted at site; pt repositioned to high fowlers; plan of care/ am meds explained; call light within reach; will continue to monitor
--- NOTE | 2022-02-27 08:00 | NUR ---
RT Lenin and this video game script writer at bedside; pt remains calm; hr 80s; deep breathing exercises explained; pt converted to 6L humidified high flow NC; pt tolerated well; o2 sats maintaining at 96-98%; po fluids provided; pt requesting cereal; o2 to be titrated down if tolerated after breakfast; will continue to monitor closely
--- NOTE | 2022-02-27 08:50 | NUR ---
Dr James present at bedside to assess pt and discuss plan of care
--- NOTE | 2022-02-27 09:00 | NUR ---
Dr James present to assess pt;
--- NOTE | 2022-02-27 09:09 | NUR ---
call placed to Mouna Urrutia for Dr James; Dr James spoke with daughter in great detail in regards in decline in condition/ poor prognosis; comfort measures to be started; pt will be converted to regular nc once family has arrived; designer writerMD and daughter Mouna agree with plan of care; will continue to monitor and await family arrival;
--- NOTE | 2022-02-27 10:06 | NUR ---
resting on left side with eyes closed; no apparent distress noted; resp even and unlabored; o2 per nc at 4L; o2 sat 97%; gerard to gravity; call light within reach; will continue to monitor
--- NOTE | 2022-02-27 12:01 | NUR ---
awake in bed; offers no complaints; o2 per nc; sr/pac on monitor; gerard to gravity; call light within reach; will continue to monitor
--- NOTE | 2022-02-27 13:00 | NUR ---
pt noted with o2 sat 70s; tachycardia on monitor; in to assess pt immed; pt noted with oxygen off; re-applied with improvement in o2 and hr; will continue to monitor
--- NOTE | 2022-02-27 13:15 | NUR ---
Visual ogden tested patient denies any blurred or double vision at this time. finger counting test adminstered. Patient able to see fingers with counts accurately at 2, 4 and 6 feet away bilaterally. Patient visual ogden intact in all four quadrants.
--- NOTE | 2022-02-27 14:30 | NUR ---
resting in bed on left side; offers no complaints; no apparent distress noted; iv intact and patent; sr pac on monitor; o2 per nc at 4L; no resp distress noted; gerard to gravity; call light within reach; will continue to monitor
--- NOTE | 2022-02-27 15:16 | NUR ---
Dr James contacted in regards CTA; orders to cancel
--- NOTE | 2022-02-27 16:00 | NUR ---
resting in bed on left side with eyes closed; no apparent distress noted; resp even and unlabored; iv intact and patent; no redness or edema noted at site; sr on monitor; gerard to gravity; o2 per nc at 3L; call light within reach; will continue to monitor
--- NOTE | 2022-02-27 18:11 | NUR ---
awake in bed eating dinner; no apparent distress noted; pt offers no complaints; iv intact and patent; no redness or edema noted at site; gerard to gravity; o2 per nc at 3L; st pac/pvc on monitor; call light within reach
--- NOTE | 2022-02-27 18:55 | NUR ---
BEDSIDE REPORT RECEIVED FROM Sukhdev LY RN. CARE OF PT ASSUMED AT THIS TIME.
--- NOTE | 2022-02-27 19:45 | NUR ---
PT'S DAUGHTER ARRIVES AND STATES PT CALLED HER AND WAS ANXIOUS. PT DENIES CALLING/ DOESN'T REMEMBER. DAUGHTER EXPRESSES CONCERN THAT PT IS "GIVING UP". ALLOWED DAUGHTER TIME TO VOICE HER CONCERNS AND POSITIVE FEEDBACK AND ENCOURAGMENT PROVIDED. DAUGHTER ALSO ENCOURAGED TO CALL NURSES STATION FOR UPDATES IF SHE EVER FELT CONCERNED FOR PT'S WELLBEING.
--- NOTE | 2022-02-27 20:00 | NUR ---
PHYSICAL ASSESMENT COMPLETED.
--- NOTE | 2022-02-27 21:15 | NUR ---
PT REQUEST TO WEAR BIBPAP AT HS. Adalgisa ADAIR SUPERINTENDENT DRILLING MADE AWARE. BIPAP APPLIED BY Adalgisa ADAIR RRT.
--- NOTE | 2022-02-27 22:05 | NUR ---
CALL BUENROSTRO ANSWERED, PT REQUEST BIPAP OFF TO DRINK. BIPAP REMOVED, PT TAKES SEVERAL SIPS OF WATER BEFORE BIPAP REAPPLIED.
[2022-02-28] VITALS (27 sets, daily range): BP systolic 125–164; BP diastolic 61–131
--- NOTE | 2022-02-28 00:15 | NUR ---
PT CALLS FIELD MARKETING DIRECTOR BUENROSTRO TO HAVE LIGHT TURNED OFF AND CURTAIN PULLED CLOSED.
--- NOTE | 2022-02-28 00:34 | NUR ---
PATIENT REQUESTED BIPAP TO BE TAKEN OFF. PLACED ON 3L/NASL CANNULA WITH SPO2 96%. NO DISTRESS NOTED AT THIS TIME.
--- NOTE | 2022-02-28 02:05 | NUR ---
PT APPEARS TO BE SLEEPING COMFORTABLY, TOLERATING 02 AT 3L/MIN VIA NC WITH NO APPARENT DISTRESS. MAINTAINING SP02 0F 96%.
--- NOTE | 2022-02-28 04:57 | NUR ---
Yoselyn VAZQUEZ CPT AT BEDSIDE COLLECTING LABS.
--- NOTE | 2022-02-28 05:00 | NUR ---
200ML CLEAR YELLOW URINE EMPTIED FROM CALIXTO.
[2022-02-28 05:29] LABS: HEMATOCRIT 34.1 % (37.0-47.0); HEMOGLOBIN 11.1 g/dl (12.0-16.0); IMMATURE GRANULOCYTES 1.1 % (0.0-5.0); MEAN CELL VOLUME 96.1 fL CALC (80.0-100.0); MEAN CORPUSCULAR HGB 31.3 pG CALC (26.0-32.0); MEAN CORPUSCULAR HGB CONC 32.6 g/dL CAL (32.0-36.0); NEUT# 6.96 thou/uL (2.00-7.15); RED BLOOD COUNT 3.55 mill/uL (4.20-5.60)
[2022-02-28 06:16] LABS: ALBUMIN 2.8 g/dL (3.2-5.0); ALKALINE PHOSPHATASE 33 u/l (38-126); BILIRUBIN, TOTAL 0.3 mg/dL (0.0-1.4); BUN 25 mg/dL (8-23); BUN/CREATININE RATIO 50 (12-20 (CALC)); CARBON DIOXIDE 35 mmol/l (22-30); CHLORIDE 104 mmol/l (95-108); CREATININE 0.5 mg/dL (0.5-1.0); GFR FOR AFR.AMER. > 60 ML/MIN (>=60 (CALC)); GFR OTHER RACES > 60 ML/MIN (>=60 (CALC)); MAGNESIUM 2.3 mg/dL (1.6-2.3); SGOT/AST 11 u/l (9-36); SODIUM 139 mmol/l (137-146); TOTAL PROTEIN 5.2 g/dL (6.3-8.2)
[2022-02-28 06:22] LABS: ANION GAP 4 (6-22 (CALC)); POTASSIUM 4.1 mmol/l (3.5-5.1)
--- NOTE | 2022-02-28 06:37 | NUR ---
PCXR AT BEDSIDE
--- NOTE | 2022-02-28 07:45 | NUR ---
pt awake in bed; no apparent distress noted; pt offers no complaints; assessment completed at this time; pt alert nd oriented; denies pain; no n/v noted; resp even and unlabored; lungs clear with exp wheezing anter, diminished bases post; skin color wnl; o2 per nc at 3L; master mechanic moist cough noted; no resp distress noted; hr reg; strong pulses; no edema noted; sr on monitor; abd soft with bs present; no bm noted per commercial insurance underwriter; gerard to gravity draining clear yellow urine; cath strap intact; #22 to rw patent with ivf infusing without complication; #20 saline locked to rac; no redness or edema noted at sites; plan of care/ meds explained; repositioned high fowlers for breakfast; po fluids/coke/cereal provided as per request; call light within reach; will continue to monitor
--- NOTE | 2022-02-28 08:13 | NUR ---
awake in bed eating breakfast; no apparent distress noted; pt offers no complaints; ivs intact; sr-st/pac on monitor; gerard to gravity; o2 per nc; call light within reach; will continue to monitor
--- NOTE | 2022-02-28 09:00 | NUR ---
Dr James present at bedside to assess pt and discuss plan of care
--- NOTE | 2022-02-28 10:00 | NUR ---
awake in bed; sr pac on the monitor; gerard to gravity; pt ofers no complaints; am care offered; pt becomes emotional and denies receiving bath since admit; supportive care provided; relaxtion and deep breathing encourage; complete bath, linen care and hair combed; repositioned to left side; o2 per nc at 3L; will continue to monitor
--- NOTE | 2022-02-28 12:00 | NUR ---
awake in bed eating lunch; offers no complaints; iv intact and patent; no redness or edema noted at site; o2 per nc; gerard to gravity; resp slightly labored; will continue to monitor closely
--- NOTE | 2022-02-28 12:45 | NUR ---
awake client relationship executive light; requesting bipap; states "it's getting hard to breathe"; o2 sat 93%; labored resp noted; accessory muscle usage noted; bipap placed per RT at this time; pt lying on left side; will continue to monitor closely
--- NOTE | 2022-02-28 14:08 | NUR ---
resting in bed on left side; sb on monitor; bipap intact and maintained; gerard to gravity; call light within reach; will continue to monitor
--- NOTE | 2022-02-28 16:02 | NUR ---
awake in call light; bipap removed as per request; pt placed on 3L nc; o2 sat maintained at 93%l iv intact; gerard to gravity and empited for 350cc; sr pac/pvc on monitor; call light within reach; will continue to monitor
--- NOTE | 2022-02-28 18:26 | NUR ---
awake in bed; offers no complaints; high fowlers for dinner; fiction writer inquires of meal preference d/t poor appetite, pt denies having any favorites; sr pac on monitor; gerard to gravity; o2 per nc; call light within reach
--- NOTE | 2022-02-28 19:00 | NUR ---
BEDSIDE REPORT RECEIVED FROM Sukhdev LY RN. CARE OF PT ASSUMED AT THIS TIME. PT SITTING UP IN BED, WATCHING TV. DENIES CURRENT NEEDS. CALL BUENROSTRO WITHIN REACH, AGREES TO CALL PRN. BED LOCKED IN LOW POSITION, BEDRAILS UP X2, COVID ISOLATION IN PLACE.
--- NOTE | 2022-02-28 20:00 | NUR ---
PHYSICAL ASSESMENT COMPLETED. SPO2 92-93% ON 02 @ 3L/M HUMIDIFIED VIA NC. SR70S ON MONITOR. RR 30. PT SOB WITH EXERTION. R-AC 20G PATENT. CALIXTO SECURED TO LEG, TUBING UNKINKED AND UNOBSTRUCTED AND FLOWING TO GRAVITY WITH CLEAR YELLOW URINE DRAINING INTO BAG. TEMP 97.9. PT DENIES NEEDS AT THIS TIME. CALL BUENROSTRO WITHIN REACH, AGREES TO CALL PRN. ISOLATION FOR COVID-19 MAINTAINED. BED LOCKED IN LOW POSITION WITH BEDRAILS UP X2.
--- NOTE | 2022-02-28 20:20 | NUR ---
ROCEPHIN INFUSING TO R-AC 20G OVER 30 MINUTES. SEE E-MAR.
--- NOTE | 2022-02-28 20:50 | NUR ---
ROCEPHIN INFUSION COMPLETE. R-AC 20G IV SALINE LOCKED.
--- NOTE | 2022-02-28 21:00 | NUR ---
SCHEDULED MEDICATIONS ADMINISTERED, SEE E-MAR.
[2022-03-01] VITALS (88 sets, daily range): BP systolic 35–161; BP diastolic 19–99
--- NOTE | 2022-03-01 | NUR ---
PT APPEARS TO BE SLEEPING COMFORTABLY, TOLERATING 02 AT 3L/MIN VIA NC WITH NO APPARENT DISTRESS. MAINTAINING SP02 0F 96%.
--- NOTE | 2022-03-01 02:00 | NUR ---
PT APPEARS TO BE SLEEPING COMFORTABLY, TOLERATING 02 AT 3L/MIN VIA NC WITH NO APPARENT DISTRESS. MAINTAINING SP02 0F 96%.
--- NOTE | 2022-03-01 04:00 | NUR ---
PT APPEARS TO BE SLEEPING COMFORTABLY, TOLERATING 02 AT 3L/MIN VIA NC WITH NO APPARENT DISTRESS. MAINTAINING SP02 0F 96%.
--- NOTE | 2022-03-01 05:20 | NUR ---
[facility] COLLECTED BY Yoselyn VAZQUEZ CPT.
--- NOTE | 2022-03-01 06:12 | NUR ---
300ML URINE EMPTIED FROM CALIXTO BY Mauri REED CNA.
[2022-03-01 06:14] LABS: HEMATOCRIT 34.7 % (37.0-47.0); HEMOGLOBIN 11.2 g/dl (12.0-16.0); MEAN CELL VOLUME 95.6 fL CALC (80.0-100.0); MEAN CORPUSCULAR HGB 30.9 pG CALC (26.0-32.0); MEAN CORPUSCULAR HGB CONC 32.3 g/dL CAL (32.0-36.0); NEUT# 9.23 thou/uL (2.00-7.15); RED BLOOD COUNT 3.63 mill/uL (4.20-5.60)
[2022-03-01 07:09] LABS: ANION GAP 6 (6-22 (CALC)); BUN 22 mg/dL (8-23); BUN/CREATININE RATIO 45 (12-20 (CALC)); CARBON DIOXIDE 34 mmol/l (22-30); CHLORIDE 102 mmol/l (95-108); CREATININE 0.5 mg/dL (0.5-1.0); GFR FOR AFR.AMER. > 60 ML/MIN (>=60 (CALC)); GFR OTHER RACES > 60 ML/MIN (>=60 (CALC)); MAGNESIUM 2.3 mg/dL (1.6-2.3); POTASSIUM 4.1 mmol/l (3.5-5.1); SODIUM 138 mmol/l (137-146)
--- NOTE | 2022-03-01 07:57 | NUR ---
PT SEEN AWAKE, ALERT, ORIENTED X 3. LUNGS WITH SLIGHT WHEEZE THROUGHOUT, 3 LPM NC, NO ACUTE DISTRESS. PT NOT HUNGRY FOR BREAKFAST.
--- NOTE | 2022-03-01 08:28 | NUR ---
PT CALLED TO SAY THAT SHE COULD NOT BREATHE, AUDIBLE GRUNTING HEARD. BIPAP REPLACED, PT IMPROVED SATS, NOW MID 90s.
--- NOTE | 2022-03-01 09:39 | NUR ---
Attempted treatment this am but pt on Bipap with monitor RR at 24 to 36, [id number], 93% 02sats. Treatment held at this time.
--- NOTE | 2022-03-01 10:08 | NUR ---
PT SEEN BY DR LYONS THIS MORNING, CONTINUES SHORT OF BREATH WITH BIPAP IN PLACE. MORPHINE ORDERED AND GIVEN. DR RAMOS WAS CONSULTED WAS DR SAWYER. PT SATS 97% ON BIPAP.
--- NOTE | 2022-03-01 12:41 | NUR ---
CONSULT COMPLETED WITH DR RAMOS VIA TABLET. PT RETURNED TO BIPAP AFTER USING NC FOR 30 MIN.
--- NOTE | 2022-03-01 15:12 | NUR ---
PT CONTINUES WITH BIPAP, NOT SPENDING MORE THAN A FEW MINUTES OFF OF IT. SATS ARE MID TO UPPER 90s ON BIPAP. PT APPROPRIATELY RESPONSIVE.
--- NOTE | 2022-03-01 18:04 | NUR ---
PT TAKEN TO CT AND BACK FOR CTA CHEST, PT TOLERATED WELL WITH BIPAP USED EN ROUTE. PT PLACED ON 6 LPM NC FOR SUPPER, EATING NOW.
--- NOTE | 2022-03-01 18:22 | NUR ---
PT IN RESPIRATORY DISTRESS AFTER A FEW MOMENTS ON 6 LPM NC, RESPIRATORY THERAPISTS NOW AT BEDSIDE. MORPHINE GIVEN.
--- NOTE | 2022-03-01 19:30 | NUR ---
RSI BY DR. ABEBE, 7.5 ETT, 23CM @ LIP. ASSIST BY Marie LANDIS RN, Davon HARDING RN, AND Adalgisa ADAIR RRT. OG PLACED BY Davon HARDING RN. PLACEMENT VERIFIED VIA AIR BOLUS AND ASPIRATION OF STOMACH CONTENT. R-IJ TLC PLACEMENT BY DR. ABEBE. PCXR ORDERED STAT FOR PLACEMENT VERIFICATION.
--- NOTE | 2022-03-01 19:59 | NUR ---
CALL PLACED TO JEROME SORIANO, LISTED PTS DAUGHTER AND PERSON FOR CONTACT @ AND UPDATED ON PT'S INTUBATION. OFFERED DAUGHTER TO COME IN AND VISIT, DECLINES DUE TO RAIN. QUESTIONS ANSWERED. ASSURED DAUGHTER SHE WILL BE CALLED WITH ANY CHANGES.
--- NOTE | 2022-03-01 20:00 | NUR ---
ORDER OBTAINED AND B/L SOFT WRIST RESTRAINTS APPLIED TO PREVENT PT FROM SELF EXTUBATION OR PULLING AT R-IJ TLC.
--- NOTE | 2022-03-01 20:06 | NUR ---
ABG RESULTED, VENT SETTINGS CHANGED BY Adalgisa ADAIR SOFT METALS ENGRAVER HAND. FIO2 100%. RR 20. TV 430. PEEP 10.
--- NOTE | 2022-03-01 20:25 | NUR ---
ORDER FOR LEVOPHED AND PROPOFOL RECEIVED BY DR ABEBE.
--- NOTE | 2022-03-01 20:28 | NUR ---
PROPOFOL AND LEVOPHED GTT INITIATED.
--- NOTE | 2022-03-01 21:01 | NUR ---
DAUGHTER ARRIVES AT BEDSIDE.
--- NOTE | 2022-03-01 21:45 | NUR ---
UPDATES PROVIDED TO DR. LYONS BY THIS NURSE AND Adalgisa ADAIR BENCH INSPECTOR. PEEP INCREASED TO 12. ORDER FOR ADDITIONAL 80MG SOLUMEDROL RECEIVED. SPOKE WITH PT'S DAUGHTER AT BEDSIDE REGARDING PT'S RESCUSITATION WISHES. PT'S DAUGHTER PRODUCES SIGNED YELLOW DNR FORM. DR. LYONS MADE AWARE.
--- NOTE | 2022-03-01 23:27 | NUR ---
ADDITIONAL SOLUMEDROL 40MG IV X1 ADMINISTERED ORDERED AFTER REPORTING SPO2 REMAINS 85%. 500ML NACL BOLUS AND MAINTENANCE FLUID NACL @40ML/H INITIATED FOR CONTINUED HYPOTENSION WITH LEVOPHED INFUSING AT 30MCG/H.
--- NOTE | 2022-03-01 23:41 | NUR ---
PT REMAINS HYPOTENSIVE DESPITE LEVOPHED GTT AND NACL BOLUS. ORDER FOR EPINEPHRINE GTT RECEIEVED AND GTT INITIATED.
[2022-03-02] VITALS (256 sets, daily range): BP systolic 46–234; BP diastolic 29–170
--- NOTE | 2022-03-02 01:16 | NUR ---
EPINEPHRINE GTT CAUSING TACHYARRYTHMIAS, EPINEPHRINE GTT TO BE TITRATED OFF AND VASSOPRESSIN GTT STARTED.
--- NOTE | 2022-03-02 03:17 | NUR ---
EPINEPHRINE COMPLETELY WEANED OFF. NIBP AND MAP STABLE.
--- NOTE | 2022-03-02 04:00 | NUR ---
750ML CLEAR YELLOW URINE EMPTIED FROM CALIXTO. 100ML LIGHT BROWN OUTPUT FROM OG. BED SCALE WEIGHT 49.5KG.
--- NOTE | 2022-03-02 05:13 | NUR ---
REPEAT ABG BY Adalgisa ADAIR MANAGER FACILITY.
--- NOTE | 2022-03-02 05:55 | NUR ---
DR. ESTES AWARE OF ABG RESULTS, NO NEW ORDERS.
[2022-03-02 06:56] LABS: HEMATOCRIT 42.4 % (37.0-47.0); IMMATURE GRANULOCYTES 2.8 % (0.0-5.0); MEAN CORPUSCULAR HGB 30.7 pG CALC (26.0-32.0); MEAN CORPUSCULAR HGB CONC 30.7 g/dL CAL (32.0-36.0); PLATELET COUNT 518 thou/uL (130-400); RED BLOOD COUNT 4.24 mill/uL (4.20-5.60); RED CELL DISTRI WIDTH 13.1 % (11.5-15.5)
[2022-03-02 06:57] LABS: MANUAL DIFFERENTIAL YES
[2022-03-02 07:23] LABS: BILIRUBIN, TOTAL 0.3 mg/dL (0.0-1.4); CREATININE 1.2 mg/dL (0.5-1.0); POTASSIUM 3.6 mmol/l (3.5-5.1); TOTAL PROTEIN 5.5 g/dL (6.3-8.2)
[2022-03-02 07:28] LABS: BAND 3 % (0-8); NUCLEATED RED BLOOD CELL 1 /100WBC (0-1)
--- NOTE | 2022-03-02 07:47 | NUR ---
03/01/22 Patient is seen in PM for bedside sitting and DBE. She maintained HR 90-100 and O2 sats at 90% on oxygem. She assisted with transfer and even stood briefly although she is limited by dyspnea. Am Pac score is 10 indicating she would do well in ECF to regain strength and decrease her burden of care. Plan is to coninue progressing funcitonal acitvity and increase her OOB activity as her cough is extremely weak and she has decreased chest wall excursion
--- NOTE | 2022-03-02 08:17 | NUR ---
CRITICAL LAB VALUES RECIEVED OFELIA CORONA NOTIFIED
--- NOTE | 2022-03-02 08:52 | NUR ---
PT SEEN AT REST IN THE BED, SEDATED AND INTUBATED. VASOPRESSIN AND LEVOPHED ARE IN USE, KEEP BLOOD PRESSURE AROUND 90-100 SYSTOLIC. VENT SETTINGS ADJUSTED BY KEILA RT, NEEDED. DR LYONS IN ICU, AWARE OF PT CONDITION.
--- NOTE | 2022-03-02 10:06 | NUR ---
PT CONTINUES TO MAINTAIN ACCEPTABLE SATS AND BLOOD PRESSURES WITH CURRENT MEDS. DAUGHTER JEROME HAS CALLED FOR UPDATED, WILL VISIT LATER TODAY.
--- NOTE | 2022-03-02 11:24 | NUR ---
Treatment held today due to medical status.
--- NOTE | 2022-03-02 12:17 | NUR ---
PT BATHED BY VIMAL CHILDERS, TOLERATED WELL. BP VOLATILE, UP TO 140, DOWN TO 80, LEVOPHED ADJUSTED. PROPOFOL ADJUSTED UPWARDS PER SLIGHT MOVEMENTS NOTED.
--- NOTE | 2022-03-02 15:28 | NUR ---
ECHO ÓSCAR MATHEW AND GLADYS IN ROOM AT THIS TIME. DAUGHTER JEROME HAS STOPPED BY, WAS UPDATED BUT DID NOT SEE HER MOTHER. PT REMAINS ON LEVOPHED AND VASOPRESSIN WITH ACCEPTABLE BP READINGS.
--- NOTE | 2022-03-02 20:00 | NUR ---
PATIENT IN BED AT THIS TIME ON VENTALATOR FOR RESPIRATORY ASSISTANCE. VENT SETTING AT THIS TIME ARE: TV; 460 FIO2% 100 RATE 25 AND PEEP IS 12. PATIENT TAPED AT 23 (CM) AND ETT SIZE IS 7.5. RESPIRATORY IN ROOM TO OBTAIN SPUTUM SAMPLE AND SENT TO LAB. PATIENT HAS OG IN PLACE AND DRAINING TEA COLOR AT THIS TIME. PATIENT TURNED TO RIGHT SIDE AT THIS TIME. FINANCIAL AID ADVISOR READING SR AND HEART OF 88 WITH OCCASSIONAL PVC'S. BP AT THIS TIME IS 145/87 SIDERAILS ARE UP CALL AND RESTRAINTS ARE ON BILATERAL WRIST AND LOOSEN FOR RANGE OF MOTION AND REAPPLIED. NEW ORDER OBTAINED TO CONTINUE WRIST RETRAINTS AT THIS TIME FROM DR. LYONS. BOWEL SOUNDS ARE PRESENT AND ACTIVE AT THIS TIME AND CALIXTO CATH PATENT AND DRAINING SMALL ABOUT OF [place] URINE. WILL CONTINUE TO MONITOR.
--- NOTE | 2022-03-02 23:00 | NUR ---
PATIENT MAP IS 119 AND LEVOPHED TITRATED TO 18MCG/MIN AT THIS TIME WILL CONTINUE TO MONITOR.
--- NOTE | 2022-03-02 23:10 | NUR ---
PATIENT BP AT THIS TIME IS 150/80 AND MAP IS 109. PATIENT LEVOPHED TITRATED DOWN AT THIS TIME FROM 18.0 TO 16.0 MCG/MIN WILL CONTINUE TO MONITOR.
--- NOTE | 2022-03-02 23:22 | NUR ---
LEVOPHED TITRATED DOWN TO 17.0 FORM 18.0 MCG/MIN AT THIS TIME. BP IS 143/86 MAP OF 103
--- NOTE | 2022-03-02 23:28 | NUR ---
LEVOPHED TITRATED FROM 17.00 TO 16.00 MCG/MIN AT THIS TIME MAP IS 101
--- NOTE | 2022-03-02 23:30 | NUR ---
LEVOPHED TITRATED AT THIS TIME TO 15.00MCG/MIN AND BP IS CURRENTLY 135/84 MAP OF 101 WILL CONTINUE TO MONITOR.
--- NOTE | 2022-03-02 23:32 | NUR ---
TITRATED TO 14.OO FROM 15.00 MCG/MIN AT THIS TIME MAP IS 103
--- NOTE | 2022-03-02 23:41 | NUR ---
LEVOPHEN TITRATED TO 13.00 AT THIS TIME BP IS 135/84 MAP IS 103
--- NOTE | 2022-03-02 23:45 | NUR ---
TITRATED LEVOPHEN TO 12.OO MCG/MIN AT THIS TIME. BP IS 140/81 MAP IS 97
--- NOTE | 2022-03-02 23:48 | NUR ---
LEOVOPHED TITRATED TO 11.00MCG/MIN AT THIS TIME AND MAP IS CURRENTLY 97. WILL CONTINUE TO MONITOR MAP AND BP.
--- NOTE | 2022-03-02 23:50 | NUR ---
LEVOPHED TITRATED TO 10.00MCG/MIN AND MAP IS 97 BP 149/51 WILL CONTINUE TO MONITOR/.
--- NOTE | 2022-03-02 23:55 | NUR ---
BP AT THIS TIME IS 117/69 MAP IS 85 LEVOPHED TITRATED TO 8.00 MCG/MIN FROM 9.00 MCG/MIN WILL CONTINUE TO MONITOR.
[2022-03-03] VITALS (31 sets, daily range): BP systolic 78–219; BP diastolic 42–135
--- NOTE | 2022-03-03 | NUR ---
PATIENT REMAINS ON MECHANICAL VENTALATION AT THIS TIME SETTINGS ARE UNCHANGED. LEVOPHED DRIP IS NOW TITRATED DOWN TO 7.00 MCG/MIN AND BP IS CURRENTLY 108/63 AND MAP IS 77. CALIXTO CATH REMAINS PATENT AND DRAINING [place] URINE AT THIS TIME. VASSOPRESSIN REMAINS AT 0.03 AND DIPRIVAN INFUSING AT 15MCG/KG/MIN AT THIS TIME. SIDERAILS ARE UP CALL LIGHT NEAR RASS SCORE IS-3 AND IS UNCHANGED. BILATERAL WRIST RESTRAINTS IN PLACE AND LOOSEN FOR ROM AND RETIED AT THIS TIME. WILL CONTINEU TO MONITOR.
--- NOTE | 2022-03-03 00:04 | NUR ---
LEVOPED TITRATED TO 7.OOMCG/MIN FROM 8.OO AT THIS TIME BP IS CURRENTLY 116/67 AND MAP IS 89 WILL CONTINUE TO MONITOR.
--- NOTE | 2022-03-03 00:54 | NUR ---
LEVOPHED TITRATED BACK UP TO 8.OOMCG/MIN AT THIS TIME DUE TO BP OF 87/60 MAP 69 WILL CONTINUE TO MONIOTOR.
--- NOTE | 2022-03-03 02:00 | NUR ---
PATIENT REMAINS VENTALATED AND SETTINGS REMAIN THE SAME. BP IS CURRENTLY 94/63 AND MAP IS CURRENTLY 68. RESTRAINTS REMOVED AND ROM PREFORMED AND RESTRAINTS REAPPLIED. SIDERAILS ARE UP CALL LIGHT IS NEAR. PATIENT MOUTH CARE GIVEN AND CALIXTO REMAINS PATENT AND DRAINING SMALL AMOUNT OF [place] COLOR URINE. WILL CONTINUE TO MONITOR.
--- NOTE | 2022-03-03 03:03 | NUR ---
BP AT THIS TIME IS 126/85 MAP IS 92 LEVOPHED DRIP IS NOW AT 8.00 MCG/MIN WILL CONTINUE TO MONITOR.
--- NOTE | 2022-03-03 03:21 | NUR ---
PATIENT DIPRIVAN TITRATED TO 20 MCG/KG/MIN AT THIS TIME. PATIENT BP IS CURRENTLY 147/109 MAP OF 99. WILL CONTINUE TO MONITOR.
--- NOTE | 2022-03-03 03:57 | NUR ---
PATIENT DIPRIVAN TITRATED TO 25MCG/KG/MIN AND BP IS CURRENTLY 115/84 MAP IS CURRENTLY 99. PATIENT SUCTIONED AT THIS TIME. OG CANISTER EMPTY AND 200 ML OF DARK FLUID NOTED. MOLYBDENUM STEAMER OPERATOR READING SR AND HR OF 87 SPO2 90% VENT SETTINGS REMAIN UNCHANGED. RESTRAINTS LOOSEN AND ROM GIVEN AND RESTRAINT REPLACED SIDERAILS ARE UP CALL LIGHT IS WITHIN REACH.
--- NOTE | 2022-03-03 04:40 | NUR ---
PATIENT AT O[facility] WENT ASYSTOLE CONFIRMED RAMONE ESTEVES AND RESPIRATORY DILIP AT TIME. DR. SEE CALLED AND NOTIFIED OF PATIENT CONDITION APPROVED TO EXTUBATE AND REMOVE ALL TUBES. LYNDA CANO CALLED AND INFORMED OF PATIENT PASSING ASKE TO COME IN TO SEE MOTHER AND WAS GIVEN PERMISSION TO DO SO.
--- NOTE | 2022-03-03 05:25 | NUR ---
DAUGHTER OF PATIENT IN ROOM AT THIS TIME. FAMILY REQUESTING [facility] TO BE CALLED AT THIS TIME. THIS NURSE DID SPEAK TO ROSY FROM [facility] AND SHE STATED SHE WILL NOTIFY HER TEAM OF THE STAFF EDUCATOR. FAMILY GIVEN INFORMATION.
--- NOTE | 2022-03-03 07:27 | NUR ---
PT'S BODY RELEASED TO [facility] AT THIS TIME.
== END 2022-03-03 04:40 | disposition expired | DRG 208 ==
LOC: ED 02:37 → ED-I 06:45 → ED 06:47 → ICU 06:57
PROVIDERS: Family Medicine; Internal Medicine; ADMIT Internal Medicine; ATTEND Internal Medicine
PROC: 5A09357 Assistance with Respiratory Ventilation, Less than 24 Consecutive Hours, Continuous Positive Airway Pressure (ICD-10-PCS; principal; 2022-02-26)
PROC: 0T9B70Z Drainage of Bladder with Drainage Device, Via Natural or Artificial Opening (ICD-10-PCS; 2022-02-26)
PROC: 5A1945Z Respiratory Ventilation, 24-96 Consecutive Hours (ICD-10-PCS; 2022-03-01)
PROC: 0BH17EZ Insertion of Endotracheal Airway into Trachea, Via Natural or Artificial Opening (ICD-10-PCS; 2022-03-01)
PROC: 05HM33Z Insertion of Infusion Device into Right Internal Jugular Vein, Percutaneous Approach (ICD-10-PCS; 2022-03-01)
PROC: 3E043XZ Introduction of Vasopressor into Central Vein, Percutaneous Approach (ICD-10-PCS; 2022-03-01)
DX: U07.1 COVID-19 (principal); J96.21 Acute and chronic respiratory failure with hypoxia; J12.82 Pneumonia due to coronavirus disease 2019; J96.22 Acute and chronic respiratory failure with hypercapnia; J69.0 Pneumonitis due to inhalation of food and vomit; K72.00 Acute and subacute hepatic failure without coma; A41.9 Sepsis, unspecified organism; R65.21 Severe sepsis with septic shock; I69.354 Hemiplegia and hemiparesis following cerebral infarction affecting left non-dominant side; J44.1 Chronic obstructive pulmonary disease with (acute) exacerbation; J44.0 Chronic obstructive pulmonary disease with (acute) lower respiratory infection; N17.9 Acute kidney failure, unspecified; I48.91 Unspecified atrial fibrillation; I10 Essential (primary) hypertension; E11.9 Type 2 diabetes mellitus without complications; I25.10 Atherosclerotic heart disease of native coronary artery without angina pectoris; K21.9 Gastro-esophageal reflux disease without esophagitis; E78.5 Hyperlipidemia, unspecified; M19.90 Unspecified osteoarthritis, unspecified site; F41.9 Anxiety disorder, unspecified; F32.A Depression, unspecified; G89.29 Other chronic pain; E87.6 Hypokalemia; E83.42 Hypomagnesemia; Z28.311 Partially vaccinated for COVID-19; F17.210 Nicotine dependence, cigarettes, uncomplicated; Z66 Do not resuscitate; E27.9 Disorder of adrenal gland, unspecified; Z79.891 Long term (current) use of opiate analgesic; Z87.11 Personal history of peptic ulcer disease; Z99.81 Dependence on supplemental oxygen; Z95.5 Presence of coronary angioplasty implant and graft
CPT/HCPCS: J1650; J3475; J7626; Q9967